=== PATIENT | male | born 1960 | race Caucasian/White ===

== ENCOUNTER 2019-02-23 04:10 | Inpatient (IN) | payer SELFPAY ==
[~2019-02-23] VITALS: Ht 172.7 cm; Wt 178.8 kg
[~2019-02-23 04:10] MED LIST: AMOX1TAB61 PO; APIX5TAB PO; ASPI325T8 PO; FURO40TA4 PO; INSU100V8 SQ; METO25TA4 PO; POTA20TA4 PO
[2019-02-23] MEDS ORDERED: VANCOMYCIN PER PHARMACY MC PRN (04:30)
[2019-02-23 04:55] LABS: BASO # 0.1 x10^3/uL (0.0-0.2); BASO % 1 % (0-3); EOS # 0.3 x10^3/uL (0.0-0.7); EOS % 3 % (0-3); HEMATOCRIT 37.7 % (39.0-53.0); HEMOGLOBIN 12.2 g/dL (13.0-17.5); LYMPH # 1.6 x10^3/uL (1.0-4.8); LYMPH % 18 % (24-48); MEAN CORPUSCULAR HEMOGLOBIN 26 pg (25-35); MEAN CORPUSCULAR HGB CONC 32 g/dL (31-37); MEAN CORPUSCULAR VOLUME 79 fL (79-100); MONO # 0.5 x10^3/uL (0.0-1.1); MONO % 5 % (0-9); NEUT # 6.4 x10^3/uL (1.8-7.7); NEUT % 73 % (31-73); PLATELET COUNT 290 x10^3/uL (140-400); RED BLOOD COUNT 4.78 x10^6/uL (4.30-5.70); RED CELL DISTRIBUTION WIDTH 17.2 % (11.5-14.5); WHITE BLOOD COUNT 8.8 x10^3/uL (4.0-11.0)
[2019-02-23] MEDS ORDERED: VANCOMYCIN 2 GM in IV NORMAL SALINE 500ML BAG 500 ML IV ONE (05:00)
[2019-02-23 05:03] LABS: CREATININE 1.1 mg/dL (0.7-1.3)
[2019-02-23 05:10] LABS: ALBUMIN/GLOBULIN RATIO 0.7 (1.0-1.7); TOTAL BILIRUBIN 0.4 mg/dL (0.2-1.0); TOTAL PROTEIN 7.5 g/dL (6.4-8.2)
--- NOTE | 2019-02-23 05:50 | PHYS DOC ---
Past Medical History Past Medical History: A-Fib, CHF, Diabetes-Type II, Hypertension Past Surgical History: Other Additional Past Surgical Histo: HERNIA, R ARM TENDON REPAIR Alcohol Use: None Drug Use: None Adult General Chief Complaint Chief Complaint: LOWER EXT PAIN HPI HPI Patient is a 59-year-old male who presents with complaint of left lower leg swelling, redness and drainage. Patient states that he had been admitted for same complaint back in December and was discharged home with antibiotics. Patient states that he completed antibiotics but he is still having purulent drainage. He denies any fever. He rates pain at a 2 out of 10. He states the pain is worsened with weightbearing. He denies any chest pain or shortness breath. He does admit some mild shortness of breath when he walks long distances but states that that is nothing new.[] Review of Systems Review of Systems Constitutional: Denies fever or chills [] Respiratory: Denies cough or shortness of breath [] Cardiovascular: No additional information not addressed in HPI [] GI: Denies abdominal pain, nausea, vomiting or diarrhea [] Musculoskeletal: Positive left lower leg swelling and pain [] Integument: Left lower leg demonstrates swelling, redness and drainage[] Neurologic: Denies headache, focal weakness or sensory changes [] All other systems were reviewed and found to be within normal limits, except as documented in this note. Current Medications Current Medications Current Medications Medications (Trade) Dose Ordered Sig/Masood Start Time Stop Time Status Last Admin Dose Admin Vancomycin HCl (Vanco Per Pharmacy) 1 each PRN DAILY PRN 02/23/19 04:30 Vancomycin HCl 2 gm/Sodium Chloride 500 ml @ 250 mls/hr 1X ONCE 02/23/19 05:00 02/23/19 06:59 02/23/19 04:48 250 MLS/HR Allergies Allergies Allergies Coded Allergies Type Severity Reaction Last Updated Verified No Known Drug Allergies 01/08/19 No Physical Exam Physical Exam Constitutional: Well developed, well nourished, no acute distress, non-toxic appearance. [] HENT: Normocephalic, atraumatic, bilateral external ears normal, oropharynx moist, no oral exudates, nose normal. [] Eyes: PERRLA, EOMI, conjunctiva normal, no discharge. [] Neck: Normal range of motion, no tenderness, supple, no stridor. [] Cardiovascular: Regular rate and rhythm[] Lungs & Thorax: Bilateral breath sounds clear to auscultation [] Abdomen: Bowel sounds normal, soft, no tenderness. [] Skin: Warm, dry, with redness, warmth and tenderness. [] Extremities: No cyanosis, no clubbing, ROM intact, with lower extremity pitting edema. [] Neurologic: Alert and oriented X 3, no focal deficits noted. [] Current Patient Data Vital Signs Vital Signs Date Time Temp Pulse Resp B/P (MAP) Pulse Ox O2 Delivery O2 Flow Rate FiO2 02/23/19 04:10 98.5 80 22 132/71 (91) 96 Room Air 98.5 Lab Values Laboratory Tests Test 02/23/19 04:40 White Blood Count 8.8 x10^3/uL (4.0-11.0) Red Blood Count 4.78 x10^6/uL (4.30-5.70) Hemoglobin 12.2 g/dL (13.0-17.5) L Hematocrit 37.7 % (39.0-53.0) L Mean Corpuscular Volume 79 fL (79-100) Mean Corpuscular Hemoglobin 26 pg (25-35) Mean Corpuscular Hemoglobin Concent 32 g/dL (31-37) Red Cell Distribution Width 17.2 % (11.5-14.5) H Platelet Count 290 x10^3/uL (140-400) Neutrophils (%) (Auto) 73 % (31-73) Lymphocytes (%) (Auto) 18 % (24-48) L Monocytes (%) (Auto) 5 % (0-9) Eosinophils (%) (Auto) 3 % (0-3) Basophils (%) (Auto) 1 % (0-3) Neutrophils # (Auto) 6.4 x10^3/uL (1.8-7.7) Lymphocytes # (Auto) 1.6 x10^3/uL (1.0-4.8) Monocytes # (Auto) 0.5 x10^3/uL (0.0-1.1) Eosinophils # (Auto) 0.3 x10^3/uL (0.0-0.7) Basophils # (Auto) 0.1 x10^3/uL (0.0-0.2) Sodium Level 142 mmol/L (136-145) Potassium Level 4.0 mmol/L (3.5-5.1) Chloride Level 104 mmol/L (98-107) Carbon Dioxide Level 33 mmol/L (21-32) H Anion Gap 5 (6-14) L Blood Urea Nitrogen 14 mg/dL (8-26) Creatinine 1.1 mg/dL (0.7-1.3) Estimated GFR (Cockcroft-Gault) 69.0 BUN/Creatinine Ratio 13 (6-20) Glucose Level 162 mg/dL (70-99) H Calcium Level 9.0 mg/dL (8.5-10.1) Total Bilirubin 0.4 mg/dL (0.2-1.0) Aspartate Amino Transferase (AST) 13 U/L (15-37) L Alanine Aminotransferase (ALT) 15 U/L (16-63) L Alkaline Phosphatase 87 U/L (46-116) NY-Hfg-M-Type Natriuretic Peptide 575 pg/mL (0-124) H Total Protein 7.5 g/dL (6.4-8.2) Albumin 3.0 g/dL (3.4-5.0) L Albumin/Globulin Ratio 0.7 (1.0-1.7) L Laboratory Tests 02/23/19 04:40 Laboratory Tests 02/23/19 04:40 EKG EKG [] Radiology/Procedures Radiology/Procedures [] Course & Med Decision Making Course & Med Decision Making Pertinent Labs and Imaging studies reviewed. (See chart for details) [] Dragon Disclaimer Dragon Disclaimer This electronic medical record was generated, in whole or in part, using a voice recognition dictation system. Departure Departure Impression: Primary Impression: Left leg cellulitis Disposition: ADMITTED INPATIENT Admitting Physician: LIANA Condition: GOOD Referrals: NO PCP (PCP) VALERIO PORTER Jr. DO Feb 23, 2019 05:50
[2019-02-23] MEDS ORDERED: ACETAMINOPHEN 325 MG TABLET. PO PRN (06:00)
--- NOTE | 2019-02-23 06:35 | NUR ---
PATIENT BROUGHT TO ROOM 578, PER W/C, PER ed NURSE, REPORT TO BE GIVEN TO CANDIDA GARCIA.
--- NOTE | 2019-02-23 06:37 | NUR ---
Pharmacy Vancomycin Dosing Note S:Consulted to monitor and dose vancomycin started 02/23/19. O:DARRICK STOVER is a 59 year old M with Cellulitis . Height: 5 feet, 8 inches Weight: 175.178243 kg [place] Body Weight: 68.40 Adjusted Body Weight: 111.40 Dosing Weight: Actual Other Antibiotics: LABS: Last BUN: 14 Last Creatinine: 1.1 Creatinine Clearance: >100, INFLATED BY OBESITY mL/min Last WBC: 8.8 Last Procalcitonin: Tmax (past 24 hours): Microbiology: I/O: Drug Levels: Last level: on at Last dose given 02/23/19 at 0500 Vancomycin Dosing: Loading Dose: 2000 mg x1 Dosing Weight: Actual Target Trough: 10-20 A: Based on: WT AND CRCL P: 1. Begin Vancomycin 2000 mg IV q12h 2. Follow up Trough level on 02/24/19 at 1630 3. Pharmacy will continue to monitor, follow and adjust therapy as needed. FRANNIE MOSER RPH, 02/23/19 0637 Signed: 02/23/19 at 0638 by FRANNIE MOSER RPH PHA
[2019-02-23 07:00] VITALS: BP 125/49
[2019-02-23] MEDS ORDERED: FLU VAX QS 2019-20 (36MOS+)/PF 0.5 ML SYRINGE. VAX IM ONE (09:30)
--- NOTE | 2019-02-23 10:44 | PDOC1 ---
History and Physical Date of Admission Date of Admission DATE: 02/23/19 TIME: 10:42 Identification/Chief Complaint Chief Complaint seen in er , 59-year-old male who presents with complaint of left lower leg swelling, redness and drainage. Patient states that he had been admitted for same complaint back in December and was discharged home with antibiotics. he completed antibiotics but he is still having purulent drainage. He denies any fever. still working part-time, cannot afford insulin or eliquis Past Medical History Past Medical History Past Medical History Past Medical History Past Medical History: A-Fib, CHF, Diabetes-Type II, Hypertension Past Surgical History: Other Additional Past Surgical Histo: HERNIA, R ARM TENDON REPAIR Alcohol Use: None Drug Use: None GNR wound left leg, klebsiella, e coli etc on wound cx LLE swelling -severe lymphedema sepsis with no organ dysfcn Morbid obesity Afib with RVR - s/p TL and electrical CARDIOVERSION () sustained vtach (40 beats), asymptomatic, stable post electrical cardioversion HTN fhx obesity Cardiovascular: CHF, HTN Pulmonary: No pertinent hx GI: No pertinent hx Heme/Onc: Anemia NOS Hepatobiliary: No pertinent hx Psych: No pertinent hx Rheumatologic: No pertinent hx Infectious disease: No pertinent hx Renal/: Chronic renal insuff Endocrine: No pertinent hx Past Surgical History Past Surgical History: Hernia Repair Family History Family History: Coronary Artery Disease, Hypertension Social History Smoke: No ALCOHOL: rare Drugs: None Current Medications Current Medications Current Medications Vancomycin HCl (Vanco Per Pharmacy) 1 each PRN DAILY PRN MC SEE COMMENTS Last administered on 02/23/19at 06:35; Start 02/23/19 at 04:30 Vancomycin HCl 2 gm/Sodium Chloride 500 ml @ 250 mls/hr 1X ONCE IV Last administered on 02/23/19at 04:48; Start 02/23/19 at 05:00; Stop 02/23/19 at 06:59; Status DC Acetaminophen (Tylenol) 650 mg PRN Q4HRS PRN PO FEVER; Start 02/23/19 at 06:00; Stop 02/24/19 at 05:59 Vancomycin HCl 2 gm/Sodium Chloride 500 ml @ 250 mls/hr Q12H IV ; Start 02/23/19 at 17:00 Vancomycin HCl (Vancomycin Trough Level) 1 each 1X ONCE MC ; Start 02/24/19 at 16:30; Stop 02/24/19 at 16:31 Influenza Virus Vaccine Quadrival (Afluria Quad 2019-20 (3yr Up) Syringe) 0.5 ml ONCE ONCE VAX IM ; Start 02/23/19 at 09:30; Stop 02/23/19 at 09:57; Status DC Active Scripts Active Lantus (Insulin Glargine,Hum.rec.anlog) 100 Unit/1 Ml Vial 8 Unit SQ QHS 30 Days Klor-Con M20 (Potassium Chloride) 20 Meq Tab.er.prt 20 Meq PO DAILYWBKFT Furosemide 40 Mg Tablet 40 Mg PO DAILY Metoprolol Tartrate 25 Mg Tablet 25 Mg PO BID Eliquis (Apixaban) 5 Mg Tablet 5 Mg PO BID Eliquis (Apixaban) 5 Mg Tablet 10 Mg PO BID 30 Days Reported Aspirin 325 Mg Tablet 1 Tab PO DAILY Augmentin 875-125 Tablet (Amoxicillin/Potassium Clav) 1 Each Tablet 1 Tab PO BID 8 Days Allergies Allergies: Coded Allergies: No Known Drug Allergies (Unverified , 01/08/19) ROS Review of System Review of Systems Review of Systems Constitutional: Denies fever or chills [] Respiratory: Denies cough or shortness of breath [] Cardiovascular: No additional information not addressed in HPI [] GI: Denies abdominal pain, nausea, vomiting or diarrhea [] Musculoskeletal: Positive left lower leg swelling and pain [] Integument: Left lower leg demonstrates swelling, redness and drainage[] despite recent antibiotica Neurologic: Denies headache, focal weakness or sensory changes [] 14 PT systems were reviewed and found to be within normal limits, except as documented Musculoskeletal: Yes Gait Disturbance, Yes Joint Stiffness Skin: Yes Dry Skin, Yes Rash, Yes Skin Lesion Changes Physical Exam Physical Exam Physical Exam Physical Exam Constitutional: Well developed, well nourished, no acute distress, non-toxic appearance. [] HENT: Normocephalic, atraumatic, bilateral external ears normal, oropharynx moist, no oral exudates, nose normal. [] Eyes: PERRLA, EOMI, conjunctiva normal, no discharge. [] Neck: Normal range of motion, no tenderness, supple, no stridor. [] Cardiovascular: Regular rate and rhythm[] Lungs & Thorax: Bilateral breath sounds clear to auscultation [] Abdomen: Bowel sounds normal, soft, no tenderness. [] Skin: Warm, dry, with redness, warmth and tenderness. [] Extremities: No cyanosis, no clubbing, ROM intact, with lower extremity pitting edema. [] Neurologic: Alert and oriented X 3, no focal deficits noted. [] General: Alert, Oriented X3, No acute distress HEENT: EOMI, Mucous membr. moist/pink Heart: irregularly irregular Breasts: Not examined Abdomen: Normal bowel sounds, Soft Rectal Exam: not examined Extremities: No cyanosis, Other (marked inflammatory changes with wheeping left ankle, lower leg) Neuro: Normal speech, Cranial nerves 3-12 NL Psych/Mental Status: Mental status NL, Mood NL Vitals Vitals Vital Signs Date Time Temp Pulse Resp B/P (MAP) Pulse Ox O2 Delivery O2 Flow Rate FiO2 02/23/19 07:00 97.6 60 18 125/49 (74) 93 Room Air 97.6 Labs Labs Laboratory Tests Test 02/23/19 04:40 02/23/19 07:32 White Blood Count 8.8 x10^3/uL (4.0-11.0) Red Blood Count 4.78 x10^6/uL (4.30-5.70) Hemoglobin 12.2 g/dL (13.0-17.5) Hematocrit 37.7 % (39.0-53.0) Mean Corpuscular Volume 79 fL (79-100) Mean Corpuscular Hemoglobin 26 pg (25-35) Mean Corpuscular Hemoglobin Concent 32 g/dL (31-37) Red Cell Distribution Width 17.2 % (11.5-14.5) Platelet Count 290 x10^3/uL (140-400) Neutrophils (%) (Auto) 73 % (31-73) Lymphocytes (%) (Auto) 18 % (24-48) Monocytes (%) (Auto) 5 % (0-9) Eosinophils (%) (Auto) 3 % (0-3) Basophils (%) (Auto) 1 % (0-3) Neutrophils # (Auto) 6.4 x10^3/uL (1.8-7.7) Lymphocytes # (Auto) 1.6 x10^3/uL (1.0-4.8) Monocytes # (Auto) 0.5 x10^3/uL (0.0-1.1) Eosinophils # (Auto) 0.3 x10^3/uL (0.0-0.7) Basophils # (Auto) 0.1 x10^3/uL (0.0-0.2) Sodium Level 142 mmol/L (136-145) Potassium Level 4.0 mmol/L (3.5-5.1) Chloride Level 104 mmol/L (98-107) Carbon Dioxide Level 33 mmol/L (21-32) Anion Gap 5 (6-14) Blood Urea Nitrogen 14 mg/dL (8-26) Creatinine 1.1 mg/dL (0.7-1.3) Estimated GFR (Cockcroft-Gault) 69.0 BUN/Creatinine Ratio 13 (6-20) Glucose Level 162 mg/dL (70-99) Calcium Level 9.0 mg/dL (8.5-10.1) Total Bilirubin 0.4 mg/dL (0.2-1.0) Aspartate Amino Transf (AST/SGOT) 13 U/L (15-37) Alanine Aminotransferase (ALT/SGPT) 15 U/L (16-63) Alkaline Phosphatase 87 U/L (46-116) WO-Igh-F-Type Natriuretic Peptide 575 pg/mL (0-124) Total Protein 7.5 g/dL (6.4-8.2) Albumin 3.0 g/dL (3.4-5.0) Albumin/Globulin Ratio 0.7 (1.0-1.7) Glucose (Fingerstick) 121 mg/dL (70-99) Laboratory Tests Test 02/23/19 04:40 02/23/19 07:32 White Blood Count 8.8 x10^3/uL (4.0-11.0) Red Blood Count 4.78 x10^6/uL (4.30-5.70) Hemoglobin 12.2 g/dL (13.0-17.5) Hematocrit 37.7 % (39.0-53.0) Mean Corpuscular Volume 79 fL (79-100) Mean Corpuscular Hemoglobin 26 pg (25-35) Mean Corpuscular Hemoglobin Concent 32 g/dL (31-37) Red Cell Distribution Width 17.2 % (11.5-14.5) Platelet Count 290 x10^3/uL (140-400) Neutrophils (%) (Auto) 73 % (31-73) Lymphocytes (%) (Auto) 18 % (24-48) Monocytes (%) (Auto) 5 % (0-9) Eosinophils (%) (Auto) 3 % (0-3) Basophils (%) (Auto) 1 % (0-3) Neutrophils # (Auto) 6.4 x10^3/uL (1.8-7.7) Lymphocytes # (Auto) 1.6 x10^3/uL (1.0-4.8) Monocytes # (Auto) 0.5 x10^3/uL (0.0-1.1) Eosinophils # (Auto) 0.3 x10^3/uL (0.0-0.7) Basophils # (Auto) 0.1 x10^3/uL (0.0-0.2) Sodium Level 142 mmol/L (136-145) Potassium Level 4.0 mmol/L (3.5-5.1) Chloride Level 104 mmol/L (98-107) Carbon Dioxide Level 33 mmol/L (21-32) Anion Gap 5 (6-14) Blood Urea Nitrogen 14 mg/dL (8-26) Creatinine 1.1 mg/dL (0.7-1.3) Estimated GFR (Cockcroft-Gault) 69.0 BUN/Creatinine Ratio 13 (6-20) Glucose Level 162 mg/dL (70-99) Calcium Level 9.0 mg/dL (8.5-10.1) Total Bilirubin 0.4 mg/dL (0.2-1.0) Aspartate Amino Transf (AST/SGOT) 13 U/L (15-37) Alanine Aminotransferase (ALT/SGPT) 15 U/L (16-63) Alkaline Phosphatase 87 U/L (46-116) WR-Ela-U-Type Natriuretic Peptide 575 pg/mL (0-124) Total Protein 7.5 g/dL (6.4-8.2) Albumin 3.0 g/dL (3.4-5.0) Albumin/Globulin Ratio 0.7 (1.0-1.7) Glucose (Fingerstick) 121 mg/dL (70-99) VTE Prophylaxis Ordered VTE Prophylaxis Devices: Contraindicated VTE Pharmacological Prophylaxi: Yes Assessment/Plan Assessment/Plan IMPRESSION LLE swelling -severe lymphedema// cellulitis Afib with RVR - s/p TL and electrical CARDIOVERSION (8.) hx sustained vtach (40 beats), asymptomatic, stable post electrical car dioversion HTN morbid obesity DIABETES, UNCONTROLLED plan Elevation/Compression consult ID CANNOT AFFORD ELIQUIS, ? WARFARIN RX Consult cardiology local wound care accuchecks 54 min pt exam, chart reviewed > 50% of time spent with exam, chart review, pt care coordination LISA COLEY MD Feb 23, 2019 10:44
[2019-02-23 11:00] VITALS: BP 130/85
--- NOTE | 2019-02-23 11:32 | PDOC ---
Infectious Disease Note Vital Sign Vital Signs Vital Signs Date Time Temp Pulse Resp B/P (MAP) Pulse Ox O2 Delivery O2 Flow Rate FiO2 02/23/19 07:00 97.6 60 18 125/49 (74) 93 Room Air 97.6 Labs Lab Laboratory Tests Test 02/23/19 04:40 02/23/19 07:32 White Blood Count 8.8 x10^3/uL (4.0-11.0) Red Blood Count 4.78 x10^6/uL (4.30-5.70) Hemoglobin 12.2 g/dL (13.0-17.5) Hematocrit 37.7 % (39.0-53.0) Mean Corpuscular Volume 79 fL (79-100) Mean Corpuscular Hemoglobin 26 pg (25-35) Mean Corpuscular Hemoglobin Concent 32 g/dL (31-37) Red Cell Distribution Width 17.2 % (11.5-14.5) Platelet Count 290 x10^3/uL (140-400) Neutrophils (%) (Auto) 73 % (31-73) Lymphocytes (%) (Auto) 18 % (24-48) Monocytes (%) (Auto) 5 % (0-9) Eosinophils (%) (Auto) 3 % (0-3) Basophils (%) (Auto) 1 % (0-3) Neutrophils # (Auto) 6.4 x10^3/uL (1.8-7.7) Lymphocytes # (Auto) 1.6 x10^3/uL (1.0-4.8) Monocytes # (Auto) 0.5 x10^3/uL (0.0-1.1) Eosinophils # (Auto) 0.3 x10^3/uL (0.0-0.7) Basophils # (Auto) 0.1 x10^3/uL (0.0-0.2) Sodium Level 142 mmol/L (136-145) Potassium Level 4.0 mmol/L (3.5-5.1) Chloride Level 104 mmol/L (98-107) Carbon Dioxide Level 33 mmol/L (21-32) Anion Gap 5 (6-14) Blood Urea Nitrogen 14 mg/dL (8-26) Creatinine 1.1 mg/dL (0.7-1.3) Estimated GFR (Cockcroft-Gault) 69.0 BUN/Creatinine Ratio 13 (6-20) Glucose Level 162 mg/dL (70-99) Calcium Level 9.0 mg/dL (8.5-10.1) Total Bilirubin 0.4 mg/dL (0.2-1.0) Aspartate Amino Transf (AST/SGOT) 13 U/L (15-37) Alanine Aminotransferase (ALT/SGPT) 15 U/L (16-63) Alkaline Phosphatase 87 U/L (46-116) MH-Ebz-B-Type Natriuretic Peptide 575 pg/mL (0-124) Total Protein 7.5 g/dL (6.4-8.2) Albumin 3.0 g/dL (3.4-5.0) Albumin/Globulin Ratio 0.7 (1.0-1.7) Glucose (Fingerstick) 121 mg/dL (70-99) Objective Assessment LLE cellultis Tinea Lymphedema H/o Afib RVR s/p cardioversion 01/10 DM Morbid obesity CKD Plan Plan of Care Dapto times one Po Zyvox/Micafungin/Zosyn F/u labs and cults Elevation Will need compression eventually Thank you # [id number] LOUANN BASHIR MD Feb 23, 2019 11:32
[2019-02-23] MEDS ORDERED: APIXABAN 5 MG TABLET. PO SCH (12:00)
--- NOTE | 2019-02-23 12:05 | CONS ---
DATE OF CONSULTATION: 02/23/2019 LOCATION: The patient is in room 578. REQUESTING PHYSICIAN: Dr. Mendoza REASON FOR CONSULTATION: Cellulitis and lymphedema. HISTORY OF PRESENT ILLNESS: The patient is a 59-year-old gentleman, recently admitted with atrial fibrillation and lower extremity cellulitis back in December, underwent cardioversion and was treated and was discharged home with oral antibiotics; however, he states he had difficulty paying for all his medications. He states he did complete some of the antibiotics and was doing fairly well. He did go home with Augmentin. He states about 2 weeks ago his left leg began to become more swollen and painful. He did not have any fevers, chills, or sweats, but had increased redness and drainage and presented back to [facility]. He has a normal white blood cell count and has been afebrile. He has no headaches and no sore throat, cough, or chest pain. No nausea, vomiting, or diarrhea. No dysuria, frequency, or urgency. He states his appetite is good. Discussed monitoring his left leg. PAST MEDICAL HISTORY: Positive for hypertension, diabetes, atrial fibrillation, morbid obesity, lower extremity lymphedema, as well as the cellulitis. Cultures were positive for E. coli, group B Strep, Klebsiella oxytoca, and Leclercia adecarboxylata. PAST SURGICAL HISTORY: Positive for scalp laceration, right elbow laceration and repair, hernia repair with mesh, and cardioversion. REVIEW OF SYSTEMS: Otherwise negative. ALLERGIES: No known drug allergies. SOCIAL HISTORY: No tobacco or alcohol. Again, . FAMILY HISTORY: Father had a myocardial infarction. Mother from uncertain cause. CURRENT MEDICATIONS: Included vancomycin, Eliquis, aspirin, Lasix, and insulin. PHYSICAL EXAMINATION: VITAL SIGNS: He is afebrile. Temperature 97.6, pulse 60, respirations 18, blood pressure 125/49, and satting 93% on room air. CONSTITUTIONAL: He is a pleasant gentleman. He is cooperative. He is in no acute distress. He is sitting in a chair. HEENT: Pupils are equal and reactive. Oral cavity, pharynx has some questionable dentition. NECK: Supple. No JVD. LUNGS: Decreased in the bases. HEART: S1, S2. ABDOMEN: Morbidly obese and soft. No guarding or rebound. EXTREMITIES: He has chronic lymphedema bilaterally. His left lower extremity has a wound on the anterior aspect of the ulceration. There is no gross odor. There is mild erythema surrounding it. There is no pus. He does have tinea bilaterally on lower extremities. NEUROLOGIC: He is nonfocal. PSYCHIATRIC: Affect is pleasant. LABORATORY DATA: White count 8.8, hemoglobin 12.2, platelets of 290, neutrophils 73, and lymphs are 18. Creatinine 1.1. Glucose 162. Normal liver function study tests. BNP was 575. IMPRESSION: 1. Left lower extremity cellulitis. 2. Tinea. 3. Lymphedema. 4. History of atrial fibrillation with rapid ventricular response, status post cardioversion on 01/10/2019. 5. Diabetes. 6. Morbid obesity. 7. Chronic kidney disease. RECOMMENDATIONS: Discontinue the vancomycin. We will dose daptomycin x 1. Begin p.o. Zyvox. Add IV micafungin as well as Zosyn. We will follow up labs, cultures. He will need elevation and eventually will need compression. Dr. Mendoaz, thank you for allowing me to participate in the patient's care. Should you have any concerns or questions, please do not hesitate to contact me. LOUANN BASHIR MD DR: AMERICA/nicole JOB#: [id number] / [id number]
--- NOTE | 2019-02-23 12:28 | PDOC2 ---
CARDIAC CONSULT DATE OF CONSULT Date of Consult DATE: 02/23/19 TIME: 12:20 REASON FOR CONSULT Reason for Consult: AFIB, cannot afford Eliquis REFERRING PHYSICIAN Referring Physician: Dr. Mendoza SOURCE Source: Chart review, Patient HISTORY OF PRESENT ILLNESS HISTORY OF PRESENT ILLNESS This is a 59 yo male, with a history of AFIB, CHF, and HTN, who presented secondary to left lower leg swelling, redness and drainage. Due to lack on insurance and financial constraints, patient not able to afford routine monitoring of warfarin. Poor candidate for Eliquis due to BMI of 60. Was previously on Eliquis following CV as samples were provided. Once samples completed, was to start ASA for stroke prevention. Patient denies any chest pain, palpitations, dizziness, diaphoresis, or nausea/vomiting. PAST MEDICAL HISTORY Past Medical History Cardiovascular: CHF, HTN, AFIB Heme/Onc: Anemia NOS Renal/: Chronic renal insuff PAST SURGICAL HISTORY Past Surgical History General: Alert, Oriented X3, Cooperative, No acute distress HEENT: Atraumatic Lungs: Other (diminished bases ) Heart: Other (IRRR; AFIB with rate 115-130) Abdomen: Soft, Other (obese ) Extremities: Other (3+ bilateral LE edema. LLE erythema ) Skin: No breakdown, No significant lesion Neuro: Normal speech, Sensation intact Psych/Mental Status: Mental status NL, Mood NL MUSCULOSKELETAL: Osteoarthritic changes both hands FAMILY HISTORY Family History: Hypertension SOCIAL HISTORY Smoke: No ALCOHOL: none Drugs: None Lives: Alone CURRENT MEDICATIONS CURRENT MEDICATIONS Current Medications Medications (Trade) Dose Ordered Sig/Masood Route PRN Reason Start Time Stop Time Status Last Admin Dose Admin Vancomycin HCl (Vanco Per Pharmacy) 1 each PRN DAILY PRN MC SEE COMMENTS 02/23/19 04:30 02/23/19 11:28 DC 02/23/19 06:35 Vancomycin HCl 2 gm/Sodium Chloride 500 ml @ 250 mls/hr 1X ONCE IV 02/23/19 05:00 02/23/19 06:59 DC 02/23/19 04:48 Influenza Virus Vaccine Quadrival (Afluria Quad 2019-20 (3yr Up) Syringe) 0.5 ml ONCE ONCE VAX IM 02/23/19 09:30 02/23/19 09:57 DC 02/23/19 11:44 ALLERGIES ALLERGIES: Coded Allergies: No Known Drug Allergies (Unverified , 01/08/19) ROS Review of System 14 point ROS conducted with pertinent positives noted above in HPI. PHYSICAL EXAM General: Alert, Oriented X3, Cooperative, No acute distress HEENT: Atraumatic, Mucous membr. moist/pink Lungs: Other (diminished bases) Heart: Other (IRRR- not on tele ) Abdomen: Soft, No tenderness Extremities: Other (trace bilateral LE edema. LLE erythema and wound with intact dressing ) Neuro: Normal speech, Strength at 5/5 X4 ext, Sensation intact Psych/Mental Status: Mental status NL, Mood NL MUSCULOSKELETAL: Osteoarthritic changes both hands VITALS/I&O VITALS/I&O: Vital Signs Date Time Temp Pulse Resp B/P (MAP) Pulse Ox O2 Delivery O2 Flow Rate FiO2 02/23/19 11:00 97.9 99 18 130/85 (100) 95 Room Air 97.9 LABS Lab: Laboratory Tests Test 02/23/19 04:40 02/23/19 07:32 02/23/19 11:43 White Blood Count 8.8 x10^3/uL (4.0-11.0) Red Blood Count 4.78 x10^6/uL (4.30-5.70) Hemoglobin 12.2 g/dL (13.0-17.5) L Hematocrit 37.7 % (39.0-53.0) L Mean Corpuscular Volume 79 fL (79-100) Mean Corpuscular Hemoglobin 26 pg (25-35) Mean Corpuscular Hemoglobin Concent 32 g/dL (31-37) Red Cell Distribution Width 17.2 % (11.5-14.5) H Platelet Count 290 x10^3/uL (140-400) Neutrophils (%) (Auto) 73 % (31-73) Lymphocytes (%) (Auto) 18 % (24-48) L Monocytes (%) (Auto) 5 % (0-9) Eosinophils (%) (Auto) 3 % (0-3) Basophils (%) (Auto) 1 % (0-3) Neutrophils # (Auto) 6.4 x10^3/uL (1.8-7.7) Lymphocytes # (Auto) 1.6 x10^3/uL (1.0-4.8) Monocytes # (Auto) 0.5 x10^3/uL (0.0-1.1) Eosinophils # (Auto) 0.3 x10^3/uL (0.0-0.7) Basophils # (Auto) 0.1 x10^3/uL (0.0-0.2) Sodium Level 142 mmol/L (136-145) Potassium Level 4.0 mmol/L (3.5-5.1) Chloride Level 104 mmol/L (98-107) Carbon Dioxide Level 33 mmol/L (21-32) H Anion Gap 5 (6-14) L Blood Urea Nitrogen 14 mg/dL (8-26) Creatinine 1.1 mg/dL (0.7-1.3) Estimated GFR (Cockcroft-Gault) 69.0 BUN/Creatinine Ratio 13 (6-20) Glucose Level 162 mg/dL (70-99) H Calcium Level 9.0 mg/dL (8.5-10.1) Total Bilirubin 0.4 mg/dL (0.2-1.0) Aspartate Amino Transferase (AST) 13 U/L (15-37) L Alanine Aminotransferase (ALT) 15 U/L (16-63) L Alkaline Phosphatase 87 U/L (46-116) OH-Xfx-T-Type Natriuretic Peptide 575 pg/mL (0-124) H Total Protein 7.5 g/dL (6.4-8.2) Albumin 3.0 g/dL (3.4-5.0) L Albumin/Globulin Ratio 0.7 (1.0-1.7) L Glucose (Fingerstick) 121 mg/dL (70-99) H 141 mg/dL (70-99) H Laboratory Tests 02/23/19 04:40 Laboratory Tests 02/23/19 04:40 ASSESSMENT/PLAN ASSESSMENT/PLAN 1. Left lower extremity cellulitis; as per PCP, ID 2. AFIB s/p TL/CVN; heart tones irregular. Not on tele. Rate controlled per vital sign recordings. Was previously on Eliquis, short-term therapy following cardioversion. 3. Hypertension; controlled 4. Chronic diastolic CHF; appears clinically compensated 5. CKD; Cr stable. 6. Morbid obesity Recommendations [id number] score 2 correlating with a 2.2% risk for stroke per year. Poor candidate for NOAC given BMI of 59. Not able to afford routine monitoring for warfarin due to lack of insurance and financial means. 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 Needs to establish care with PCP. PACO MATIAS APRN Feb 23, 2019 12:27
[2019-02-23] MEDS ORDERED: NORMAL SALINE IV ONE (12:30)
[2019-02-23] MEDS ORDERED: DAPTOMYCIN IV ONE (12:30)
[2019-02-23] MEDS ORDERED: DAPTOmycin (GENERIC) IVPB 670 MG in IV NORMAL SALINE 50ML 50 ML IV ONE (12:34)
[2019-02-23] MEDS: POTASSIUM CHLORIDE 20 MEQ TABLET.ER. PO SCH (13:00)
[2019-02-23] MEDS: LINEZOLID 600 MG TABLET PO SCH ×2 (13:00→21:17)
[2019-02-23] MEDS: ASPIRIN 325 MG TABLET PO SCH (13:00)
[2019-02-23] MEDS: METOPROLOL TART IMMED RELEASE 25 MG TABLET. PO SCH ×2 (13:01→21:17)
[2019-02-23] MEDS: FUROSEMIDE 40 MG TABLET. PO SCH (13:01)
[2019-02-23] MEDS: PIPERACILLIN/TAZOBACTAM 3.375 GM in IV NORMAL SALINE 50ML 50 ML IV SCH ×3 (13:16→23:30)
[2019-02-23] MEDS: MICAFUNGIN 100 MG in IV DEXTROSE 5% 100ML 100 ML IV SCH (13:18)
[2019-02-23 15:00] VITALS: BP 122/55
[2019-02-23] MEDS ORDERED: VANCOMYCIN 2 GM in IV NORMAL SALINE 500ML BAG 500 ML IV SCH (17:00)
[2019-02-23 19:00] VITALS: BP 108/69
--- NOTE | 2019-02-23 20:24 | EKG ---
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 : 1960 Requested By: PACO MATIAS Order Number: [id number] Reading MD: Measurements Intervals [place] Rate: 100 P: 14 AK: 152 QRS: -7 QRSD: 148 T: 16 QT: 356 QTc: 462 Interpretive Statements SINUS RHYTHM VENTRICULAR PREMATURE COMPLEX(ES) ATRIAL PREMATURE COMPLEX(ES) LEFTWARD AXIS NON SPECIFIC INTRAVENTRICULAR BLOCK QRS(T) CONTOUR ABNORMALITY CONSISTENT WITH ANTEROSEPTAL INFARCT AGE UNDETERMINED ABNORMAL ECG RI6.02 Compared to ECG 01/10/2019 11:17:27 Myocardial infarct finding now present Right bundle-branch block no longer present Right ventricular hypertrophy no longer present Early repolarization no longer present
[2019-02-23] MEDS: LACTOBACILLUS RHAMNOSUS GG 1 CAPSULE. PO SCH (21:16)
[2019-02-23] MEDS: INSULIN GLARGINE SYRINGE. SQ SCH (21:21)
[2019-02-23 23:00] VITALS: BP 113/88
[2019-02-23] MEDS: ZOLPIDEM 5 MG TABLET. PO PRN (23:30)
[2019-02-24] VITALS (7 sets, daily range): BP systolic 96–116; BP diastolic 60–88
[2019-02-24] MEDS: PIPERACILLIN/TAZOBACTAM 3.375 GM in IV NORMAL SALINE 50ML 50 ML IV SCH ×3 (05:16→18:00)
[2019-02-24] MEDS: METOPROLOL TART IMMED RELEASE 25 MG TABLET. PO SCH ×2 (08:09→20:56)
[2019-02-24] MEDS: ASPIRIN 325 MG TABLET PO SCH (08:09)
[2019-02-24] MEDS: LACTOBACILLUS RHAMNOSUS GG 1 CAPSULE. PO SCH ×2 (08:09→20:56)
--- NOTE | 2019-02-24 08:09 | PDOC ---
PROGRESS NOTES History of Present Illness History of Present Illness VTE Prophylaxis Ordered VTE Prophylaxis Devices: Contraindicated VTE Pharmacological Prophylaxi: Yes Assessment/Plan Assessment/Plan IMPRESSION LLE swelling -severe lymphedema// cellulitis Afib with RVR - s/p TL and electrical CARDIOVERSION (8./) hx sustained vtach (40 beats), asymptomatic, stable post electrical c ardioversion HTN morbid obesity DIABETES, UNCONTROLLED [id number] score 2 correlating with a 2.2% risk for stroke per year. asa for stroke prevention, cannot afford coumadin monitoring plan Elevation/Compression iv antibiotics consult ID CANNOT AFFORD ELIQUIS, d/c Consult cardiology local wound care accuchecks 34 min pt exam, chart reviewed > 50% of time spent with exam, chart review, pt care coordination Vitals Vitals Vital Signs Date Time Temp Pulse Resp B/P (MAP) Pulse Ox O2 Delivery O2 Flow Rate FiO2 02/24/19 07:00 98.4 95 18 116/69 (85) 94 Room Air 98.4 Physical Exam General: Alert, Oriented X3, Cooperative, No acute distress Heart: Other (IRRR- not on tele ) Lungs: Other Abdomen: Soft, No tenderness Extremities: Other (trace bilateral LE edema. LLE erythema and wound with intact dressing ) Labs LABS Laboratory Tests Test 02/23/19 11:43 02/23/19 17:02 02/23/19 20:42 Glucose (Fingerstick) 141 mg/dL (70-99) 123 mg/dL (70-99) 220 mg/dL (70-99) Comment Review of Relevant I have reviewed the following items rachel (where applicable) has been applied. Labs Laboratory Tests Test 02/23/19 04:40 02/23/19 07:32 02/23/19 11:43 02/23/19 17:02 White Blood Count 8.8 x10^3/uL (4.0-11.0) Red Blood Count 4.78 x10^6/uL (4.30-5.70) Hemoglobin 12.2 g/dL (13.0-17.5) Hematocrit 37.7 % (39.0-53.0) Mean Corpuscular Volume 79 fL (79-100) Mean Corpuscular Hemoglobin 26 pg (25-35) Mean Corpuscular Hemoglobin Concent 32 g/dL (31-37) Red Cell Distribution Width 17.2 % (11.5-14.5) Platelet Count 290 x10^3/uL (140-400) Neutrophils (%) (Auto) 73 % (31-73) Lymphocytes (%) (Auto) 18 % (24-48) Monocytes (%) (Auto) 5 % (0-9) Eosinophils (%) (Auto) 3 % (0-3) Basophils (%) (Auto) 1 % (0-3) Neutrophils # (Auto) 6.4 x10^3/uL (1.8-7.7) Lymphocytes # (Auto) 1.6 x10^3/uL (1.0-4.8) Monocytes # (Auto) 0.5 x10^3/uL (0.0-1.1) Eosinophils # (Auto) 0.3 x10^3/uL (0.0-0.7) Basophils # (Auto) 0.1 x10^3/uL (0.0-0.2) Sodium Level 142 mmol/L (136-145) Potassium Level 4.0 mmol/L (3.5-5.1) Chloride Level 104 mmol/L (98-107) Carbon Dioxide Level 33 mmol/L (21-32) Anion Gap 5 (6-14) Blood Urea Nitrogen 14 mg/dL (8-26) Creatinine 1.1 mg/dL (0.7-1.3) Estimated GFR (Cockcroft-Gault) 69.0 BUN/Creatinine Ratio 13 (6-20) Glucose Level 162 mg/dL (70-99) Calcium Level 9.0 mg/dL (8.5-10.1) Total Bilirubin 0.4 mg/dL (0.2-1.0) Aspartate Amino Transf (AST/SGOT) 13 U/L (15-37) Alanine Aminotransferase (ALT/SGPT) 15 U/L (16-63) Alkaline Phosphatase 87 U/L (46-116) PZ-Vyn-W-Type Natriuretic Peptide 575 pg/mL (0-124) Total Protein 7.5 g/dL (6.4-8.2) Albumin 3.0 g/dL (3.4-5.0) Albumin/Globulin Ratio 0.7 (1.0-1.7) Glucose (Fingerstick) 121 mg/dL (70-99) 141 mg/dL (70-99) 123 mg/dL (70-99) Test 02/23/19 20:42 Glucose (Fingerstick) 220 mg/dL (70-99) Laboratory Tests Test 02/23/19 11:43 02/23/19 17:02 02/23/19 20:42 Glucose (Fingerstick) 141 mg/dL (70-99) 123 mg/dL (70-99) 220 mg/dL (70-99) Microbiology 02/23/19 Blood Culture - Preliminary, Resulted NO GROWTH AFTER 1 DAY Medications Current Medications Vancomycin HCl (Vanco Per Pharmacy) 1 each PRN DAILY PRN MC SEE COMMENTS Last administered on 02/23/19at 06:35; Start 02/23/19 at 04:30; Stop 02/23/19 at 11:28; Status DC Vancomycin HCl 2 gm/Sodium Chloride 500 ml @ 250 mls/hr 1X ONCE IV Last administered on 02/23/19at 04:48; Start 02/23/19 at 05:00; Stop 02/23/19 at 06:59; Status DC Acetaminophen (Tylenol) 650 mg PRN Q4HRS PRN PO FEVER; Start 02/23/19 at 06:00; Stop 02/24/19 at 05:59; Status DC Vancomycin HCl 2 gm/Sodium Chloride 500 ml @ 250 mls/hr Q12H IV ; Start 02/23/19 at 17:00; Stop 02/23/19 at 11:28; Status DC Vancomycin HCl (Vancomycin Trough Level) 1 each 1X ONCE MC ; Start 02/24/19 at 16:30; Stop 02/23/19 at 11:32; Status DC Influenza Virus Vaccine Quadrival (Afluria Quad 2019-20 (3yr Up) Syringe) 0.5 ml ONCE ONCE VAX IM Last administered on 02/23/19at 11:44; Start 02/23/19 at 09:30; Stop 02/23/19 at 09:57; Status DC Apixaban (Eliquis) 5 mg BID PO Last administered on 02/23/19at 13:00; Start 02/23/19 at 12:00; Stop 02/23/19 at 17:26; Status DC Aspirin (Jailyn Aspirin) 325 mg DAILY PO Last administered on 02/23/19at 13:00; Start 02/23/19 at 12:00 Furosemide (Lasix) 40 mg DAILY PO Last administered on 02/23/19 13:01; Start 02/23/19 at 12:00 Insulin Glargine (Lantus Syringe) 8 unit QHS SQ Last administered on 02/23/19at 21:21; Start 02/23/19 at 21:00 Metoprolol Tartrate (Lopressor) 25 mg BID PO Last administered on 02/23/19 21:17; Start 02/23/19 at 12:00 Potassium Chloride (Klor-Con) 20 meq DAILYWBKFT PO Last administered on 02/23/19 13:00; Start 02/23/19 at 12:00 Linezolid (Zyvox) 600 mg BID PO Last administered on 02/23/19 21:17; Start 02/23/19 at 13:00 Micafungin Sodium 100 mg/Dextrose 100 ml @ 100 mls/hr Q24H IV Last administered on 02/23/19 13:18; Start 02/23/19 at 13:00 Piperacillin Sod/ Tazobactam Sod 3.375 gm/Sodium Chloride 50 ml @ 100 mls/hr Q6HRS IV Last administered on 02/24/19 05:16; Start 02/23/19 at 12:00 Daptomycin 1060 mg/Sodium Chloride 50 ml @ 100 mls/hr ONCE ONCE IV ; Start 02/23/19 at 12:30; Stop 02/23/19 at 12:34; Status DC Daptomycin 670 mg/ Sodium Chloride 50 ml @ 100 mls/hr ONCE ONCE IV Last administered on 02/23/19 13:18; Start 02/23/19 at 12:34; Stop 02/23/19 at 12:59; Status DC Lactobacillus Rhamnosus (Culturelle) 1 cap BID PO Last administered on 02/23/19 21:16; Start 02/23/19 at 21:00 Zolpidem Tartrate (Ambien) 5 mg PRN QHS PRN PO INSOMNIA Last administered on 02/23/19at 23:30; Start 02/23/19 at 23:30 Active Scripts Active Lantus (Insulin Glargine,Hum.rec.anlog) 100 Unit/1 Ml Vial 8 Unit SQ QHS 30 Days Klor-Con M20 (Potassium Chloride) 20 Meq Tab.er.prt 20 Meq PO DAILYWBKFT Furosemide 40 Mg Tablet 40 Mg PO DAILY Metoprolol Tartrate 25 Mg Tablet 25 Mg PO BID Eliquis (Apixaban) 5 Mg Tablet 5 Mg PO BID Eliquis (Apixaban) 5 Mg Tablet 10 Mg PO BID 30 Days Reported Aspirin 325 Mg Tablet 1 Tab PO DAILY Augmentin 875-125 Tablet (Amoxicillin/Potassium Clav) 1 Each Tablet 1 Tab PO BID 8 Days Vitals/I & O Vital Sign - Last 24 Hours 02/23/19 02/23/19 02/23/19 02/23/19 11:00 13:01 15:00 19:00 Temp 97.9 97.8 98.4 97.9 97.8 98.4 Pulse 99 99 78 101 Resp 18 18 18 B/P (MAP) 130/85 (100) 130/85 122/55 (77) 108/69 (82) Pulse Ox 95 92 90 O2 Delivery Room Air Room Air Room Air 02/23/19 02/23/19 02/23/19 02/24/19 20:00 21:17 23:00 03:00 Temp 97.9 98.0 97.9 98.0 Pulse 101 47 47 Resp 18 18 B/P (MAP) 108/69 113/88 (96) 115/78 (90) Pulse Ox 90 90 O2 Delivery Room Air Room Air Room Air 02/24/19 02/24/19 02/24/19 03:00 04:00 07:00 Temp 97.9 97.9 98.4 97.9 97.9 98.4 Pulse 47 47 95 Resp 18 18 18 B/P (MAP) 113/88 (96) 113/88 (96) 116/69 (85) Pulse Ox 90 90 94 O2 Delivery Room Air Room Air Room Air Intake and Output 02/23/19 02/23/19 02/24/19 14:59 22:59 06:59 Intake Total 100 ml 350 ml Output Total 450 ml 350 ml Balance -450 ml -250 ml 350 ml LISA COLEY MD Feb 24, 2019 08:09
[2019-02-24] MEDS: FUROSEMIDE 40 MG TABLET. PO SCH (08:10)
[2019-02-24] MEDS: LINEZOLID 600 MG TABLET PO SCH ×2 (08:10→20:56)
[2019-02-24] MEDS: POTASSIUM CHLORIDE 20 MEQ TABLET.ER. PO SCH (08:10)
--- NOTE | 2019-02-24 08:34 | PDOC ---
Infectious Disease Note Subjective Subjective Maybe slightly better. Less pain No F/C/S/N/V/d/SOA tolerating abx ROS ROS o/w neg Vital Sign Vital Signs Vital Signs Date Time Temp Pulse Resp B/P (MAP) Pulse Ox O2 Delivery O2 Flow Rate FiO2 02/24/19 08:09 95 126/74 02/24/19 07:00 98.4 18 94 Room Air 98.4 Physical Exam PHYSICAL EXAM CONSTITUTIONAL: He is a pleasant gentleman. He is cooperative. He is in no acute distress. He is sitting reclined in a chair. HEENT: Pupils are equal and reactive. Oral cavity, pharynx has some questionable dentition. NECK: Supple. No JVD. LUNGS: Decreased in the bases. HEART: S1, S2. ABDOMEN: Morbidly obese and soft. No guarding or rebound. EXTREMITIES: He has chronic lymphedema bilaterally. His left lower extremity has a wound on the anterior aspect of the ulceration. There is no gross odor. There is mild erythema surrounding it. There is no pus. He does have tinea bilaterally on lower extremities. NEUROLOGIC: He is nonfocal. PSYCHIATRIC: Affect is pleasant. Labs Lab Laboratory Tests Test 02/23/19 11:43 02/23/19 17:02 02/23/19 20:42 Glucose (Fingerstick) 141 mg/dL (70-99) 123 mg/dL (70-99) 220 mg/dL (70-99) Micro Microbiology 02/23/19 Blood Culture - Preliminary, Resulted NO GROWTH AFTER 1 DAY Objective Assessment LLE cellultis Tinea Lymphedema H/o Afib RVR s/p cardioversion 01/10 DM Morbid obesity CKD Plan Plan of Care Dapto times one Po Zyvox/Micafungin/Zosyn F/u labs and cults Elevation Will need compression eventually LOUANN BASHIR MD Feb 24, 2019 08:34
[2019-02-24] MEDS: MICAFUNGIN 100 MG in IV DEXTROSE 5% 100ML 100 ML IV SCH (13:00)
--- NOTE | 2019-02-24 14:34 | PDOC ---
PROGRESS NOTES Subjective Subjective Patient seen and examined Objective Objective Vital Signs Date Time Temp Pulse Resp B/P (MAP) Pulse Ox O2 Delivery O2 Flow Rate FiO2 02/24/19 11:00 98.2 100 18 112/64 (80) 97 Room Air 98.2 Intake and Output 02/24/19 07:00 Intake Total 450 ml Output Total 800 ml Balance -350 ml Intake Oral 450 ml Output Urine Total 800 ml # Voids 2 Physical Exam Abdomen: Normal bowel sounds Heart: Regular rate General: mild distress Lungs: Clear to auscultation Assessment Assessment Lower extremity cellulitis on the left. Continue treatment as per the ID service. History of atrial fibrillation. Status post TL and cardioversion. Was treated post cardioversion with Eliquis and then change to aspirin. EKG shows a sinus rhythm. Continuing on beta blockers and aspirin this time. Chronic diastolic heart failure. Clinically compensated. Hypertension. Controlled on present treatment. Chronic kidney disease. Monitoring creatinine. Morbid obesity. Comment Review of Relevant I have reviewed the following items rachel (where applicable) has been applied. Labs Laboratory Tests Test 02/23/19 04:40 02/23/19 07:32 02/23/19 11:43 02/23/19 17:02 White Blood Count 8.8 x10^3/uL (4.0-11.0) Red Blood Count 4.78 x10^6/uL (4.30-5.70) Hemoglobin 12.2 g/dL (13.0-17.5) Hematocrit 37.7 % (39.0-53.0) Mean Corpuscular Volume 79 fL (79-100) Mean Corpuscular Hemoglobin 26 pg (25-35) Mean Corpuscular Hemoglobin Concent 32 g/dL (31-37) Red Cell Distribution Width 17.2 % (11.5-14.5) Platelet Count 290 x10^3/uL (140-400) Neutrophils (%) (Auto) 73 % (31-73) Lymphocytes (%) (Auto) 18 % (24-48) Monocytes (%) (Auto) 5 % (0-9) Eosinophils (%) (Auto) 3 % (0-3) Basophils (%) (Auto) 1 % (0-3) Neutrophils # (Auto) 6.4 x10^3/uL (1.8-7.7) Lymphocytes # (Auto) 1.6 x10^3/uL (1.0-4.8) Monocytes # (Auto) 0.5 x10^3/uL (0.0-1.1) Eosinophils # (Auto) 0.3 x10^3/uL (0.0-0.7) Basophils # (Auto) 0.1 x10^3/uL (0.0-0.2) Sodium Level 142 mmol/L (136-145) Potassium Level 4.0 mmol/L (3.5-5.1) Chloride Level 104 mmol/L (98-107) Carbon Dioxide Level 33 mmol/L (21-32) Anion Gap 5 (6-14) Blood Urea Nitrogen 14 mg/dL (8-26) Creatinine 1.1 mg/dL (0.7-1.3) Estimated GFR (Cockcroft-Gault) 69.0 BUN/Creatinine Ratio 13 (6-20) Glucose Level 162 mg/dL (70-99) Calcium Level 9.0 mg/dL (8.5-10.1) Total Bilirubin 0.4 mg/dL (0.2-1.0) Aspartate Amino Transf (AST/SGOT) 13 U/L (15-37) Alanine Aminotransferase (ALT/SGPT) 15 U/L (16-63) Alkaline Phosphatase 87 U/L (46-116) YG-Quy-T-Type Natriuretic Peptide 575 pg/mL (0-124) Total Protein 7.5 g/dL (6.4-8.2) Albumin 3.0 g/dL (3.4-5.0) Albumin/Globulin Ratio 0.7 (1.0-1.7) Glucose (Fingerstick) 121 mg/dL (70-99) 141 mg/dL (70-99) 123 mg/dL (70-99) Test 02/23/19 20:42 02/24/19 07:25 02/24/19 11:30 Glucose (Fingerstick) 220 mg/dL (70-99) 146 mg/dL (70-99) 119 mg/dL (70-99) Laboratory Tests Test 02/23/19 17:02 02/23/19 20:42 02/24/19 07:25 02/24/19 11:30 Glucose (Fingerstick) 123 mg/dL (70-99) 220 mg/dL (70-99) 146 mg/dL (70-99) 119 mg/dL (70-99) Microbiology 02/23/19 Blood Culture - Preliminary, Resulted NO GROWTH AFTER 1 DAY Medications Current Medications Vancomycin HCl (Vanco Per Pharmacy) 1 each PRN DAILY PRN MC SEE COMMENTS Last administered on 02/23/19at 06:35; Start 02/23/19 at 04:30; Stop 02/23/19 at 11:28; Status DC Vancomycin HCl 2 gm/Sodium Chloride 500 ml @ 250 mls/hr 1X ONCE IV Last a dministered on 02/23/19at 04:48; Start 02/23/19 at 05:00; Stop 02/23/19 at 06:59; Status DC Acetaminophen (Tylenol) 650 mg PRN Q4HRS PRN PO FEVER; Start 02/23/19 at 06:00; Stop 02/24/19 at 05:59; Status DC Vancomycin HCl 2 gm/Sodium Chloride 500 ml @ 250 mls/hr Q12H IV ; Start 02/23/19 at 17:00; Stop 02/23/19 at 11:28; Status DC Vancomycin HCl (Vancomycin Trough Level) 1 each 1X ONCE MC ; Start 02/24/19 at 16:30; Stop 02/23/19 at 11:32; Status DC Influenza Virus Vaccine Quadrival (Afluria Quad 2019-20 (3yr Up) Syringe) 0.5 ml ONCE ONCE VAX IM Last administered on 02/23/19at 11:44; Start 02/23/19 at 09:30; Stop 02/23/19 at 09:57; Status DC Apixaban (Eliquis) 5 mg BID PO Last administered on 02/23/19at 13:00; Start 02/23/19 at 12:00; Stop 02/23/19 at 17:26; Status DC Aspirin (Jailyn Aspirin) 325 mg DAILY PO Last administered on 02/24/19at 08:09; Start 02/23/19 at 12:00 Furosemide (Lasix) 40 mg DAILY PO Last administered on 02/24/19at 08:10; Start 02/23/19 at 12:00 Insulin Glargine (Lantus Syringe) 8 unit QHS SQ Last administered on 02/23/19at 21:21; Start 02/23/19 at 21:00 Metoprolol Tartrate (Lopressor) 25 mg BID PO Last administered on 02/24/19 08:09; Start 02/23/19 at 12:00 Potassium Chloride (Klor-Con) 20 meq DAILYWBKFT PO Last administered on 02/24/19at 08:10; Start 02/23/19 at 12:00 Linezolid (Zyvox) 600 mg BID PO Last administered on 02/24/19 08:10; Start 02/23/19 at 13:00 Micafungin Sodium 100 mg/Dextrose 100 ml @ 100 mls/hr Q24H IV Last administered on 02/24/19 13:00; Start 02/23/19 at 13:00 Piperacillin Sod/ Tazobactam Sod 3.375 gm/Sodium Chloride 50 ml @ 100 mls/hr Q6HRS IV Last administered on 02/24/19at 11:49; Start 02/23/19 at 12:00 Daptomycin 1060 mg/Sodium Chloride 50 ml @ 100 mls/hr ONCE ONCE IV ; Start 02/23/19 at 12:30; Stop 02/23/19 at 12:34; Status DC Daptomycin 670 mg/ Sodium Chloride 50 ml @ 100 mls/hr ONCE ONCE IV Last administered on 02/23/19 13:18; Start 02/23/19 at 12:34; Stop 02/23/19 at 12:59; Status DC Lactobacillus Rhamnosus (Culturelle) 1 cap BID PO Last administered on 02/24/19 08:09; Start 02/23/19 at 21:00 Zolpidem Tartrate (Ambien) 5 mg PRN QHS PRN PO INSOMNIA Last administered on 02/23/19at 23:30; Start 02/23/19 at 23:30 Active Scripts Active Lantus (Insulin Glargine,Hum.rec.anlog) 100 Unit/1 Ml Vial 8 Unit SQ QHS 30 Days Klor-Con M20 (Potassium Chloride) 20 Meq Tab.er.prt 20 Meq PO DAILYWBKFT Furosemide 40 Mg Tablet 40 Mg PO DAILY Metoprolol Tartrate 25 Mg Tablet 25 Mg PO BID Eliquis (Apixaban) 5 Mg Tablet 5 Mg PO BID Eliquis (Apixaban) 5 Mg Tablet 10 Mg PO BID 30 Days Reported Aspirin 325 Mg Tablet 1 Tab PO DAILY Augmentin 875-125 Tablet (Amoxicillin/Potassium Clav) 1 Each Tablet 1 Tab PO BID 8 Days Vitals/I & O Vital Sign - Last 24 Hours 02/23/19 02/23/19 02/23/19 02/23/19 15:00 19:00 20:00 21:17 Temp 97.8 98.4 97.8 98.4 Pulse 78 101 101 Resp 18 18 B/P (MAP) 122/55 (77) 108/69 (82) 108/69 Pulse Ox 92 90 O2 Delivery Room Air Room Air Room Air 02/23/19 02/24/19 02/24/19 02/24/19 23:00 03:00 03:00 04:00 Temp 97.9 98.0 97.9 97.9 97.9 98.0 97.9 97.9 Pulse 47 47 47 47 Resp 18 18 18 18 B/P (MAP) 113/88 (96) 115/78 (90) 113/88 (96) 113/88 (96) Pulse Ox 90 90 90 90 O2 Delivery Room Air Room Air Room Air Room Air 02/24/19 02/24/19 02/24/19 07:00 08:09 11:00 Temp 98.4 98.2 98.4 98.2 Pulse 95 95 100 Resp 18 18 B/P (MAP) 116/69 (85) 126/74 112/64 (80) Pulse Ox 94 97 O2 Delivery Room Air Room Air Intake and Output 02/23/19 02/23/19 02/24/19 15:00 23:00 07:00 Intake Total 100 ml 350 ml Output Total 450 ml 350 ml Balance -450 ml -250 ml 350 ml JOSE SUMNER MD Feb 24, 2019 14:34
--- NOTE | 2019-02-24 16:26 | NUR ---
SW consulted for resources, financial hardship. Chart reviewed and pt lives at home. SW provided pt with community, healthcare resources. Pt is provided with [facility] and [facility] brochure for insulin assistance. Pt accepted resources and was appreciative.
[2019-02-24] MEDS: INSULIN GLARGINE SYRINGE. SQ SCH (21:01)
[2019-02-25] MEDS: PIPERACILLIN/TAZOBACTAM 3.375 GM in IV NORMAL SALINE 50ML 50 ML IV SCH ×5 (00:06→23:33)
[2019-02-25 03:00] VITALS: BP 110/51
[2019-02-25 04:36] LABS: BASO # 0.1 x10^3/uL (0.0-0.2); BASO % 1 % (0-3); EOS # 0.6 x10^3/uL (0.0-0.7); EOS % 6 % (0-3); HEMATOCRIT 34.8 % (39.0-53.0); HEMOGLOBIN 11.2 g/dL (13.0-17.5); LYMPH % 10 % (24-48); MEAN CORPUSCULAR HEMOGLOBIN 25 pg (25-35); MEAN CORPUSCULAR HGB CONC 32 g/dL (31-37); MEAN CORPUSCULAR VOLUME 79 fL (79-100); MONO # 0.5 x10^3/uL (0.0-1.1); MONO % 5 % (0-9); NEUT # 7.6 x10^3/uL (1.8-7.7); NEUT % 77 % (31-73); PLATELET COUNT 262 x10^3/uL (140-400); RED BLOOD COUNT 4.41 x10^6/uL (4.30-5.70); RED CELL DISTRIBUTION WIDTH 17.2 % (11.5-14.5); WHITE BLOOD COUNT 9.9 x10^3/uL (4.0-11.0)
[2019-02-25 05:03] LABS: ALBUMIN 2.6 g/dL (3.4-5.0); ALBUMIN/GLOBULIN RATIO 0.6 (1.0-1.7); CALCIUM 9.3 mg/dL (8.5-10.1); CREATININE 1.4 mg/dL (0.7-1.3); GFR 52.2; TOTAL BILIRUBIN 0.7 mg/dL (0.2-1.0)
[2019-02-25 07:00] VITALS: BP 111/53
[2019-02-25] MEDS: METOPROLOL TART IMMED RELEASE 25 MG TABLET. PO SCH ×2 (09:57→21:40)
[2019-02-25] MEDS: LACTOBACILLUS RHAMNOSUS GG 1 CAPSULE. PO SCH ×2 (09:57→21:40)
[2019-02-25] MEDS: ASPIRIN 325 MG TABLET PO SCH (09:58)
[2019-02-25] MEDS: LINEZOLID 600 MG TABLET PO SCH ×2 (09:58→21:40)
[2019-02-25] MEDS: POTASSIUM CHLORIDE 20 MEQ TABLET.ER. PO SCH (09:58)
[2019-02-25] MEDS: FUROSEMIDE 40 MG TABLET. PO SCH (09:58)
--- NOTE | 2019-02-25 10:37 | PDOC ---
PROGRESS NOTES History of Present Illness History of Present Illness VTE Prophylaxis Ordered VTE Prophylaxis Devices: Contraindicated VTE Pharmacological Prophylaxi: Yes Assessment/Plan Assessment/Plan IMPRESSION LLE swelling -severe lymphedema// cellulitis Afib with RVR - s/p TL and electrical CARDIOVERSION () hx sustained vtach (40 beats), asymptomatic, stable post electrical c ardioversion HTN morbid obesity DIABETES, UNCONTROLLED [id number] score 2 correlating with a 2.2% risk for stroke per year. asa for stroke prevention, cannot afford coumadin monitoring plan Elevation/Compression iv antibiotics consult ID CANNOT AFFORD ELIQUIS, d/c Consult cardiology local wound care accuchecks 29 min pt exam, chart reviewed > 50% of time spent with exam, chart review, pt care coordination Vitals Vitals Vital Signs Date Time Temp Pulse Resp B/P (MAP) Pulse Ox O2 Delivery O2 Flow Rate FiO2 02/25/19 09:57 87 111/53 02/25/19 08:00 Room Air 02/25/19 07:00 97.7 18 94 97.7 Physical Exam Physical Exam CONSTITUTIONAL: He is a pleasant gentleman. He is cooperative. He is in no acute distress. He is sitting reclined in a chair. HEENT: Pupils are equal and reactive. Oral cavity, pharynx has some questionable dentition. NECK: Supple. No JVD. LUNGS: Decreased in the bases. HEART: S1, S2. ABDOMEN: Morbidly obese and soft. No guarding or rebound. EXTREMITIES: He has chronic lymphedema bilaterally. His left lower extremity has a wound on the anterior aspect of the ulceration. There is no gross odor. There is mild erythema surrounding it. There is no pus. He does have tinea bilaterally on lower extremities. NEUROLOGIC: He is nonfocal. PSYCHIATRIC: Affect is pleasant. General: mild distress Heart: Regular rate Lungs: Other Abdomen: Normal bowel sounds Extremities: Other (trace bilateral LE edema. LLE erythema and wound with intact dressing ) Labs LABS PATIENT: DARRICK STOVER ACCT: [id number] LOC: 5 [facility] U: [id number] AGE/SX: 59/M ROOM: [facility] RE02/23/[address]: ED LOZANO : 1960 BED: 1 DIS: STATUS: ADM IN TLOC: ------- ----- SPEC #: [id number] JARON: 02/23/19 STATUS: RES REQ #: [id number] RECD: 02/23/19 [facility] DR: VALERIO PORTER Jr., DO SOURCE: BLOOD ENTR: 02/23/[address]: EVERETT HDZES: ORDERED: BCULT Procedure Result BLOOD CULTURE Preliminary NO GROWTH AFTER 2 DAYS Laboratory Tests Test 02/24/19 11:30 02/24/19 16:50 02/24/19 20:55 02/25/19 04:25 Glucose (Fingerstick) 119 mg/dL (70-99) 140 mg/dL (70-99) 189 mg/dL (70-99) White Blood Count 9.9 x10^3/uL (4.0-11.0) Red Blood Count 4.41 x10^6/uL (4.30-5.70) Hemoglobin 11.2 g/dL (13.0-17.5) Hematocrit 34.8 % (39.0-53.0) Mean Corpuscular Volume 79 fL (79-100) Mean Corpuscular Hemoglobin 25 pg (25-35) Mean Corpuscular Hemoglobin Concent 32 g/dL (31-37) Red Cell Distribution Width 17.2 % (11.5-14.5) Platelet Count 262 x10^3/uL (140-400) Neutrophils (%) (Auto) 77 % (31-73) Lymphocytes (%) (Auto) 10 % (24-48) Monocytes (%) (Auto) 5 % (0-9) Eosinophils (%) (Auto) 6 % (0-3) Basophils (%) (Auto) 1 % (0-3) Neutrophils # (Auto) 7.6 x10^3/uL (1.8-7.7) Lymphocytes # (Auto) 1.0 x10^3/uL (1.0-4.8) Monocytes # (Auto) 0.5 x10^3/uL (0.0-1.1) Eosinophils # (Auto) 0.6 x10^3/uL (0.0-0.7) Basophils # (Auto) 0.1 x10^3/uL (0.0-0.2) Sodium Level 140 mmol/L (136-145) Potassium Level 4.0 mmol/L (3.5-5.1) Chloride Level 102 mmol/L (98-107) Carbon Dioxide Level 30 mmol/L (21-32) Anion Gap 8 (6-14) Blood Urea Nitrogen 15 mg/dL (8-26) Creatinine 1.4 mg/dL (0.7-1.3) Estimated GFR (Cockcroft-Gault) 52.2 BUN/Creatinine Ratio 11 (6-20) Glucose Level 144 mg/dL (70-99) Calcium Level 9.3 mg/dL (8.5-10.1) Total Bilirubin 0.7 mg/dL (0.2-1.0) Aspartate Amino Transf (AST/SGOT) 22 U/L (15-37) Alanine Aminotransferase (ALT/SGPT) 21 U/L (16-63) Alkaline Phosphatase 91 U/L (46-116) Total Protein 7.0 g/dL (6.4-8.2) Albumin 2.6 g/dL (3.4-5.0) Albumin/Globulin Ratio 0.6 (1.0-1.7) Test 02/25/19 07:51 Glucose (Fingerstick) 109 mg/dL (70-99) Comment Review of Relevant I have reviewed the following items rachel (where applicable) has been applied. Labs Laboratory Tests Test 02/23/19 11:43 02/23/19 17:02 02/23/19 20:42 02/24/19 07:25 Glucose (Fingerstick) 141 mg/dL (70-99) 123 mg/dL (70-99) 220 mg/dL (70-99) 146 mg/dL (70-99) Test 02/24/19 11:30 02/24/19 16:50 02/24/19 20:55 02/25/19 04:25 Glucose (Fingerstick) 119 mg/dL (70-99) 140 mg/dL (70-99) 189 mg/dL (70-99) White Blood Count 9.9 x10^3/uL (4.0-11.0) Red Blood Count 4.41 x10^6/uL (4.30-5.70) Hemoglobin 11.2 g/dL (13.0-17.5) Hematocrit 34.8 % (39.0-53.0) Mean Corpuscular Volume 79 fL (79-100) Mean Corpuscular Hemoglobin 25 pg (25-35) Mean Corpuscular Hemoglobin Concent 32 g/dL (31-37) Red Cell Distribution Width 17.2 % (11.5-14.5) Platelet Count 262 x10^3/uL (140-400) Neutrophils (%) (Auto) 77 % (31-73) Lymphocytes (%) (Auto) 10 % (24-48) Monocytes (%) (Auto) 5 % (0-9) Eosinophils (%) (Auto) 6 % (0-3) Basophils (%) (Auto) 1 % (0-3) Neutrophils # (Auto) 7.6 x10^3/uL (1.8-7.7) Lymphocytes # (Auto) 1.0 x10^3/uL (1.0-4.8) Monocytes # (Auto) 0.5 x10^3/uL (0.0-1.1) Eosinophils # (Auto) 0.6 x10^3/uL (0.0-0.7) Basophils # (Auto) 0.1 x10^3/uL (0.0-0.2) Sodium Level 140 mmol/L (136-145) Potassium Level 4.0 mmol/L (3.5-5.1) Chloride Level 102 mmol/L (98-107) Carbon Dioxide Level 30 mmol/L (21-32) Anion Gap 8 (6-14) Blood Urea Nitrogen 15 mg/dL (8-26) Creatinine 1.4 mg/dL (0.7-1.3) Estimated GFR (Cockcroft-Gault) 52.2 BUN/Creatinine Ratio 11 (6-20) Glucose Level 144 mg/dL (70-99) Calcium Level 9.3 mg/dL (8.5-10.1) Total Bilirubin 0.7 mg/dL (0.2-1.0) Aspartate Amino Transf (AST/SGOT) 22 U/L (15-37) Alanine Aminotransferase (ALT/SGPT) 21 U/L (16-63) Alkaline Phosphatase 91 U/L (46-116) Total Protein 7.0 g/dL (6.4-8.2) Albumin 2.6 g/dL (3.4-5.0) Albumin/Globulin Ratio 0.6 (1.0-1.7) Test 02/25/19 07:51 Glucose (Fingerstick) 109 mg/dL (70-99) Laboratory Tests Test 02/24/19 11:30 02/24/19 16:50 02/24/19 20:55 02/25/19 04:25 Glucose (Fingerstick) 119 mg/dL (70-99) 140 mg/dL (70-99) 189 mg/dL (70-99) White Blood Count 9.9 x10^3/uL (4.0-11.0) Red Blood Count 4.41 x10^6/uL (4.30-5.70) Hemoglobin 11.2 g/dL (13.0-17.5) Hematocrit 34.8 % (39.0-53.0) Mean Corpuscular Volume 79 fL (79-100) Mean Corpuscular Hemoglobin 25 pg (25-35) Mean Corpuscular Hemoglobin Concent 32 g/dL (31-37) Red Cell Distribution Width 17.2 % (11.5-14.5) Platelet Count 262 x10^3/uL (140-400) Neutrophils (%) (Auto) 77 % (31-73) Lymphocytes (%) (Auto) 10 % (24-48) Monocytes (%) (Auto) 5 % (0-9) Eosinophils (%) (Auto) 6 % (0-3) Basophils (%) (Auto) 1 % (0-3) Neutrophils # (Auto) 7.6 x10^3/uL (1.8-7.7) Lymphocytes # (Auto) 1.0 x10^3/uL (1.0-4.8) Monocytes # (Auto) 0.5 x10^3/uL (0.0-1.1) Eosinophils # (Auto) 0.6 x10^3/uL (0.0-0.7) Basophils # (Auto) 0.1 x10^3/uL (0.0-0.2) Sodium Level 140 mmol/L (136-145) Potassium Level 4.0 mmol/L (3.5-5.1) Chloride Level 102 mmol/L (98-107) Carbon Dioxide Level 30 mmol/L (21-32) Anion Gap 8 (6-14) Blood Urea Nitrogen 15 mg/dL (8-26) Creatinine 1.4 mg/dL (0.7-1.3) Estimated GFR (Cockcroft-Gault) 52.2 BUN/Creatinine Ratio 11 (6-20) Glucose Level 144 mg/dL (70-99) Calcium Level 9.3 mg/dL (8.5-10.1) Total Bilirubin 0.7 mg/dL (0.2-1.0) Aspartate Amino Transf (AST/SGOT) 22 U/L (15-37) Alanine Aminotransferase (ALT/SGPT) 21 U/L (16-63) Alkaline Phosphatase 91 U/L (46-116) Total Protein 7.0 g/dL (6.4-8.2) Albumin 2.6 g/dL (3.4-5.0) Albumin/Globulin Ratio 0.6 (1.0-1.7) Test 02/25/19 07:51 Glucose (Fingerstick) 109 mg/dL (70-99) Microbiology 02/23/19 Blood Culture - Preliminary, Resulted NO GROWTH AFTER 2 DAYS Medications Current Medications Vancomycin HCl (Vanco Per Pharmacy) 1 each PRN DAILY PRN MC SEE COMMENTS Last administered on 02/23/19at 06:35; Start 02/23/19 at 04:30; Stop 02/23/19 at 11:28; Status DC Vancomycin HCl 2 gm/Sodium Chloride 500 ml @ 250 mls/hr 1X ONCE IV Last administered on 02/23/19at 04:48; Start 02/23/19 at 05:00; Stop 02/23/19 at 06:59; Status DC Acetaminophen (Tylenol) 650 mg PRN Q4HRS PRN PO FEVER; Start 02/23/19 at 06:00; Stop 02/24/19 at 05:59; Status DC Vancomycin HCl 2 gm/Sodium Chloride 500 ml @ 250 mls/hr Q12H IV ; Start 02/23/19 at 17:00; Stop 02/23/19 at 11:28; Status DC Vancomycin HCl (Vancomycin Trough Level) 1 each 1X ONCE MC ; Start 02/24/19 at 16:30; Stop 02/23/19 at 11:32; Status DC Influenza Virus Vaccine Quadrival (Afluria Quad 2019-20 (3yr Up) Syringe) 0.5 ml ONCE ONCE VAX IM Last administered on 02/23/19at 11:44; Start 02/23/19 at 09:30; Stop 02/23/19 at 09:57; Status DC Apixaban (Eliquis) 5 mg BID PO Last administered on 02/23/19at 13:00; Start 02/23/19 at 12:00; Stop 02/23/19 at 17:26; Status DC Aspirin (Jaliyn Aspirin) 325 mg DAILY PO Last administered on 02/25/19at 09:58; Start 02/23/19 at 12:00 Furosemide (Lasix) 40 mg DAILY PO Last administered on 02/25/19at 09:58; Start 02/23/19 at 12:00 Insulin Glargine (Lantus Syringe) 8 unit QHS SQ Last administered on 02/24/19at 21:01; Start 02/23/19 at 21:00 Metoprolol Tartrate (Lopressor) 25 mg BID PO Last administered on 02/25/19 09:57; Start 02/23/19 at 12:00 Potassium Chloride (Klor-Con) 20 meq DAILYWBKFT PO Last administered on 02/25/19 09:58; Start 02/23/19 at 12:00 Linezolid (Zyvox) 600 mg BID PO Last administered on 02/25/19 09:58; Start 02/23/19 at 13:00 Micafungin Sodium 100 mg/Dextrose 100 ml @ 100 mls/hr Q24H IV Last adminis tered on 02/24/19at 13:00; Start 02/23/19 at 13:00 Piperacillin Sod/ Tazobactam Sod 3.375 gm/Sodium Chloride 50 ml @ 100 mls/hr Q6HRS IV Last administered on 02/25/19at 06:31; Start 02/23/19 at 12:00 Daptomycin 1060 mg/Sodium Chloride 50 ml @ 100 mls/hr ONCE ONCE IV ; Start 02/23/19 at 12:30; Stop 02/23/19 at 12:34; Status DC Daptomycin 670 mg/ Sodium Chloride 50 ml @ 100 mls/hr ONCE ONCE IV Last administered on 02/23/19 13:18; Start 02/23/19 at 12:34; Stop 02/23/19 at 12:59; Status DC Lactobacillus Rhamnosus (Culturelle) 1 cap BID PO Last administered on 02/25/19 09:57; Start 02/23/19 at 21:00 Zolpidem Tartrate (Ambien) 5 mg PRN QHS PRN PO INSOMNIA Last administered on 02/23/19at 23:30; Start 02/23/19 at 23:30 Active Scripts Active Lantus (Insulin Glargine,Hum.rec.anlog) 100 Unit/1 Ml Vial 8 Unit SQ QHS 30 Days Klor-Con M20 (Potassium Chloride) 20 Meq Tab.er.prt 20 Meq PO DAILYWBKFT Furosemide 40 Mg Tablet 40 Mg PO DAILY Metoprolol Tartrate 25 Mg Tablet 25 Mg PO BID Reported Aspirin 325 Mg Tablet 1 Tab PO DAILY Augmentin 875-125 Tablet (Amoxicillin/Potassium Clav) 1 Each Tablet 1 Tab PO BID 8 Days Vitals/I & O Vital Sign - Last 24 Hours 02/24/19 02/24/19 02/24/19 02/24/19 11:00 15:00 19:00 20:00 Temp 98.2 98.0 98.3 98.2 98.0 98.3 Pulse 100 90 97 Resp 18 18 18 B/P (MAP) 112/64 (80) 96/60 (72) 116/63 (80) Pulse Ox 97 92 92 O2 Delivery Room Air Room Air Room Air Room Air 02/24/19 02/24/19 02/25/19 02/25/19 20:56 23:00 03:00 07:00 Temp 98.3 98.3 97.7 98.3 98.3 97.7 Pulse 97 81 58 87 Resp 18 B/P (MAP) 116/63 111/68 (82) 110/51 (70) 111/53 (72) Pulse Ox 92 91 94 O2 Delivery Room Air Room Air Room Air 02/25/19 02/25/19 08:00 09:57 Pulse 87 B/P (MAP) 111/53 O2 Delivery Room Air Intake and Output 02/24/19 02/24/19 02/25/19 14:59 22:59 06:59 Intake Total 480 ml 50 ml Balance 480 ml 50 ml LISA COLEY MD Feb 25, 2019 10:37
--- NOTE | 2019-02-25 10:43 | PDOC ---
Infectious Disease Note Subjective Subjective Right leg itches, trying not to scratch Walked earlier Some diarrhea Denies loss of appretite, N/V/cramps No fevrs or chills ROS ROS per HPI Vital Sign Vital Signs Vital Signs Date Time Temp Pulse Resp B/P (MAP) Pulse Ox O2 Delivery O2 Flow Rate FiO2 02/25/19 09:57 87 111/53 02/25/19 08:00 Room Air 02/25/19 07:00 97.7 18 94 97.7 Physical Exam PHYSICAL EXAM GENERAL: Sitting in the chair, alert, cutting fingernails and joking HEENT: Pupils are equal and reactive. Oral cavity, pharynx has some questionable dentition. NECK: Supple. LUNGS: Decreased in the bases. HEART: S1, S2. ABDOMEN: Morbidly obese and soft. No guarding or rebound. EXTREMITIES: Chronic lymphedema bilaterally. His left lower extremity has a wound on the anterior aspect of the ulceration. There is no gross odor. There is mild erythema surrounding it. There is no pus. He does have tinea bilaterally on lower extremities. Scratch braden RLE. NEUROLOGIC: Nonfocal. Labs Lab Laboratory Tests Test 02/24/19 11:30 02/24/19 16:50 02/24/19 20:55 02/25/19 04:25 Glucose (Fingerstick) 119 mg/dL (70-99) 140 mg/dL (70-99) 189 mg/dL (70-99) White Blood Count 9.9 x10^3/uL (4.0-11.0) Red Blood Count 4.41 x10^6/uL (4.30-5.70) Hemoglobin 11.2 g/dL (13.0-17.5) Hematocrit 34.8 % (39.0-53.0) Mean Corpuscular Volume 79 fL (79-100) Mean Corpuscular Hemoglobin 25 pg (25-35) Mean Corpuscular Hemoglobin Concent 32 g/dL (31-37) Red Cell Distribution Width 17.2 % (11.5-14.5) Platelet Count 262 x10^3/uL (140-400) Neutrophils (%) (Auto) 77 % (31-73) Lymphocytes (%) (Auto) 10 % (24-48) Monocytes (%) (Auto) 5 % (0-9) Eosinophils (%) (Auto) 6 % (0-3) Basophils (%) (Auto) 1 % (0-3) Neutrophils # (Auto) 7.6 x10^3/uL (1.8-7.7) Lymphocytes # (Auto) 1.0 x10^3/uL (1.0-4.8) Monocytes # (Auto) 0.5 x10^3/uL (0.0-1.1) Eosinophils # (Auto) 0.6 x10^3/uL (0.0-0.7) Basophils # (Auto) 0.1 x10^3/uL (0.0-0.2) Sodium Level 140 mmol/L (136-145) Potassium Level 4.0 mmol/L (3.5-5.1) Chloride Level 102 mmol/L (98-107) Carbon Dioxide Level 30 mmol/L (21-32) Anion Gap 8 (6-14) Blood Urea Nitrogen 15 mg/dL (8-26) Creatinine 1.4 mg/dL (0.7-1.3) Estimated GFR (Cockcroft-Gault) 52.2 BUN/Creatinine Ratio 11 (6-20) Glucose Level 144 mg/dL (70-99) Calcium Level 9.3 mg/dL (8.5-10.1) Total Bilirubin 0.7 mg/dL (0.2-1.0) Aspartate Amino Transf (AST/SGOT) 22 U/L (15-37) Alanine Aminotransferase (ALT/SGPT) 21 U/L (16-63) Alkaline Phosphatase 91 U/L (46-116) Total Protein 7.0 g/dL (6.4-8.2) Albumin 2.6 g/dL (3.4-5.0) Albumin/Globulin Ratio 0.6 (1.0-1.7) Test 02/25/19 07:51 Glucose (Fingerstick) 109 mg/dL (70-99) Micro Microbiology 02/23/19 Blood Culture - Preliminary, Resulted NO GROWTH AFTER 2 DAYS Objective Assessment LLE cellultis Tinea Lymphedema H/o Afib RVR s/p cardioversion 01/10 DM Morbid obesity CKD Plan Plan of Care Dapto times one Po Zyvox/Micafungin/Zosyn Probiotics F/u labs and cults Elevation Will need compression eventually Attending Co-Sign The patient was seen and interviewed as well as examined at the bedside. The chart was reviewed. The case was discussed. Agree with the plan of care. RENETTA CROWLEY APRN Feb 25, 2019 10:43 POPPY BORJA MD Feb 25, 2019 13:39
[2019-02-25 11:00] VITALS: BP 131/74
[2019-02-25] MEDS: MICAFUNGIN 100 MG in IV DEXTROSE 5% 100ML 100 ML IV SCH (14:08)
[2019-02-25 15:35] VITALS: BP 105/59
[2019-02-25 19:00] VITALS: BP 119/83
[2019-02-25] MEDS: INSULIN GLARGINE SYRINGE. SQ SCH (21:00)
[2019-02-25 23:00] VITALS: BP 112/58
[2019-02-25] MEDS: ZOLPIDEM 5 MG TABLET. PO PRN (23:07)
[2019-02-26] VITALS (7 sets, daily range): BP systolic 103–121; BP diastolic 56–73
[2019-02-26] MEDS: PIPERACILLIN/TAZOBACTAM 3.375 GM in IV NORMAL SALINE 50ML 50 ML IV SCH ×3 (05:42→18:23)
[2019-02-26] MEDS: INSULIN LISPRO 300 UNITS/3 ML VIAL. SQ SCH ×3 (08:00→17:00)
[2019-02-26] MEDS ORDERED: ACETAMINOPHEN/CODEINE 300/30MG TABLET. PO PRN (08:30)
[2019-02-26] MEDS ORDERED: DEXTROSE 50% 25 GM / 50ML DISP.SYRIN. IV PRN (08:30)
[2019-02-26] MEDS ORDERED: ACETAMINOPHEN 500 MG TABLET PO PRN (08:30)
[2019-02-26] MEDS ORDERED: ONDANSETRON PF 4 MG/2 ML VIAL. IVP PRN (08:30)
[2019-02-26] MEDS: METOPROLOL TART IMMED RELEASE 25 MG TABLET. PO SCH ×2 (08:40→21:24)
[2019-02-26] MEDS: LACTOBACILLUS RHAMNOSUS GG 1 CAPSULE. PO SCH ×2 (08:40→21:24)
[2019-02-26] MEDS: ASPIRIN 325 MG TABLET PO SCH (08:40)
[2019-02-26] MEDS: POTASSIUM CHLORIDE 20 MEQ TABLET.ER. PO SCH (08:40)
[2019-02-26] MEDS: FUROSEMIDE 40 MG TABLET. PO SCH (08:41)
[2019-02-26] MEDS: LINEZOLID 600 MG TABLET PO SCH ×2 (08:41→21:24)
[2019-02-26] MEDS ORDERED: IV NORMAL SALINE 1000ML BAG 1,000 ML IV SCH (09:00)
--- NOTE | 2019-02-26 10:05 | PDOC ---
PROGRESS NOTES Chief Complaint Chief Complaint left leg cellulitis sepsis no organ dysfcn PRe DM? Morbid obesity bMI 61 Self pay Chronic lymphedema Long thickened toe nails Hx ckd chronic diastolic heart failure, comepnsated HX chronci a fib History of Present Illness History of Present Illness The bed is too small for him HE is leevating his legs on chair Wound dressing i took off and inspected RAw skin left leg дмитрий lateral side but better smell per his acct and no drainage LOng talk today, frustrated about his no insurance Applying for [employer] caid ID has him on micafungin, zyvox, zosyn NO efvers, no leukocytosis BS 1502-180s, claims no DM CArdiac note - a fib, diastolic heart failure all stable PLAN: CPM, MAy add esr and hgba1c to next blood draw CERat 1.4 - start IVF x1 L only? (already has signif swelling and diastolic hea rt fialure) and recehck tmr Avoid nephrotoxns if possible SP no SNU benefots - sw on case Vitals Vitals Vital Signs Date Time Temp Pulse Resp B/P (MAP) Pulse Ox O2 Delivery O2 Flow Rate FiO2 02/26/19 08:40 86 109/74 02/26/19 08:00 Room Air 02/26/19 07:35 97.3 18 95 97.3 02/26/19 03:00 2.0 Physical Exam Physical Exam GENERAL: Sitting in the chair, alert, cutting fingernails and joking HEENT: Pupils are equal and reactive. Oral cavity, pharynx has some questionable dentition. NECK: Supple. LUNGS: Decreased in the bases. HEART: S1, S2. ABDOMEN: Morbidly obese and soft. No guarding or rebound. EXTREMITIES: Chronic lymphedema bilaterally. His left lower extremity has a wound on the anterior aspect of the ulceration. There is no gross odor. There is mild erythema surrounding it. There is no pus. He does have tinea bilaterally on lower extremities. Scratch braden RLE. NEUROLOGIC: Nonfocal. General: Alert, Oriented X3, Cooperative, mild distress Heart: Regular rate, Normal S1, Normal S2 Lungs: Other Abdomen: Normal bowel sounds Extremities: No clubbing, No cyanosis, Other (trace bilateral LE edema. LLE erythema and wound with intact dressing ) Skin: Other (red raw skin,left ace, lateral side, no foul smelling drainage) Labs LABS Laboratory Tests Test 02/25/19 11:53 02/25/19 16:57 02/25/19 20:23 02/26/19 07:39 Glucose (Fingerstick) 113 mg/dL (70-99) 165 mg/dL (70-99) 164 mg/dL (70-99) 121 mg/dL (70-99) Review of Systems Review of Systems soa on exertion, otherwsie no cp no diarrhea or abd pain or constipation or emesis Comment Review of Relevant I have reviewed the following items rachel (where applicable) has been applied. Labs Laboratory Tests Test 02/24/19 11:30 02/24/19 16:50 02/24/19 20:55 02/25/19 04:25 Glucose (Fingerstick) 119 mg/dL (70-99) 140 mg/dL (70-99) 189 mg/dL (70-99) White Blood Count 9.9 x10^3/uL (4.0-11.0) Red Blood Count 4.41 x10^6/uL (4.30-5.70) Hemoglobin 11.2 g/dL (13.0-17.5) Hematocrit 34.8 % (39.0-53.0) Mean Corpuscular Volume 79 fL (79-100) Mean Corpuscular Hemoglobin 25 pg (25-35) Mean Corpuscular Hemoglobin Concent 32 g/dL (31-37) Red Cell Distribution Width 17.2 % (11.5-14.5) Platelet Count 262 x10^3/uL (140-400) Neutrophils (%) (Auto) 77 % (31-73) Lymphocytes (%) (Auto) 10 % (24-48) Monocytes (%) (Auto) 5 % (0-9) Eosinophils (%) (Auto) 6 % (0-3) Basophils (%) (Auto) 1 % (0-3) Neutrophils # (Auto) 7.6 x10^3/uL (1.8-7.7) Lymphocytes # (Auto) 1.0 x10^3/uL (1.0-4.8) Monocytes # (Auto) 0.5 x10^3/uL (0.0-1.1) Eosinophils # (Auto) 0.6 x10^3/uL (0.0-0.7) Basophils # (Auto) 0.1 x10^3/uL (0.0-0.2) Sodium Level 140 mmol/L (136-145) Potassium Level 4.0 mmol/L (3.5-5.1) Chloride Level 102 mmol/L (98-107) Carbon Dioxide Level 30 mmol/L (21-32) Anion Gap 8 (6-14) Blood Urea Nitrogen 15 mg/dL (8-26) Creatinine 1.4 mg/dL (0.7-1.3) Estimated GFR (Cockcroft-Gault) 52.2 BUN/Creatinine Ratio 11 (6-20) Glucose Level 144 mg/dL (70-99) Calcium Level 9.3 mg/dL (8.5-10.1) Total Bilirubin 0.7 mg/dL (0.2-1.0) Aspartate Amino Transf (AST/SGOT) 22 U/L (15-37) Alanine Aminotransferase (ALT/SGPT) 21 U/L (16-63) Alkaline Phosphatase 91 U/L (46-116) Total Protein 7.0 g/dL (6.4-8.2) Albumin 2.6 g/dL (3.4-5.0) Albumin/Globulin Ratio 0.6 (1.0-1.7) Test 02/25/19 07:51 02/25/19 11:53 02/25/19 16:57 02/25/19 20:23 Glucose (Fingerstick) 109 mg/dL (70-99) 113 mg/dL (70-99) 165 mg/dL (70-99) 164 mg/dL (70-99) Test 02/26/19 07:39 Glucose (Fingerstick) 121 mg/dL (70-99) Laboratory Tests Test 02/25/19 11:53 02/25/19 16:57 02/25/19 20:23 02/26/19 07:39 Glucose (Fingerstick) 113 mg/dL (70-99) 165 mg/dL (70-99) 164 mg/dL (70-99) 121 mg/dL (70-99) Microbiology 02/23/19 Blood Culture - Preliminary, Resulted NO GROWTH AFTER 3 DAYS Medications Current Medications Vancomycin HCl (Vanco Per Pharmacy) 1 each PRN DAILY PRN MC SEE COMMENTS Last administered on 02/23/19at 06:35; Start 02/23/19 at 04:30; Stop 02/23/19 at 11:28; Status DC Vancomycin HCl 2 gm/Sodium Chloride 500 ml @ 250 mls/hr 1X ONCE IV Last administered on 02/23/19at 04:48; Start 02/23/19 at 05:00; Stop 02/23/19 at 06:59; Status DC Acetaminophen (Tylenol) 650 mg PRN Q4HRS PRN PO FEVER; Start 02/23/19 at 06:00; Stop 02/24/19 at 05:59; Status DC Vancomycin HCl 2 gm/Sodium Chloride 500 ml @ 250 mls/hr Q12H IV ; Start 02/23/19 at 17:00; Stop 02/23/19 at 11:28; Status DC Vancomycin HCl (Vancomycin Trough Level) 1 each 1X ONCE MC ; Start 02/24/19 at 16:30; Stop 02/23/19 at 11:32; Status DC Influenza Virus Vaccine Quadrival (Afluria Quad 2019-20 (3yr Up) Syringe) 0.5 ml ONCE ONCE VAX IM Last administered on 02/23/19at 11:44; Start 02/23/19 at 09:30; Stop 02/23/19 at 09:57; Status DC Apixaban (Eliquis) 5 mg BID PO Last administered on 02/23/19at 13:00; Start at 12:00; Stop 02/23/19 at 17:26; Status DC Aspirin (Jailyn Aspirin) 325 mg DAILY PO Last administered on 02/26/19 08:40; Start 02/23/19 at 12:00 Furosemide (Lasix) 40 mg DAILY PO Last administered on 02/26/19at 08:41; Start 02/23/19 at 12:00 Insulin Glargine (Lantus Syringe) 8 unit QHS SQ Last administered on 02/25/19at 21:00; Start 02/23/19 at 21:00 Metoprolol Tartrate (Lopressor) 25 mg BID PO Last administered on 02/26/19at 08:40; Start 02/23/19 at 12:00 Potassium Chloride (Klor-Con) 20 meq DAILYWBKFT PO Last administered on 02/26/19at 08:40; Start 02/23/19 at 12:00 Linezolid (Zyvox) 600 mg BID PO Last administered on 02/26/19at 08:41; Start 02/23/19 at 13:00 Micafungin Sodium 100 mg/Dextrose 100 ml @ 100 mls/hr Q24H IV Last admini stered on 02/25/19at 14:08; Start 02/23/19 at 13:00 Piperacillin Sod/ Tazobactam Sod 3.375 gm/Sodium Chloride 50 ml @ 100 mls/hr Q6HRS IV Last administered on 02/26/19at 05:42; Start 02/23/19 at 12:00 Daptomycin 1060 mg/Sodium Chloride 50 ml @ 100 mls/hr ONCE ONCE IV ; Start 02/23/19 at 12:30; Stop 02/23/19 at 12:34; Status DC Daptomycin 670 mg/ Sodium Chloride 50 ml @ 100 mls/hr ONCE ONCE IV Last administered on 02/23/19at 13:18; Start 02/23/19 at 12:34; Stop 02/23/19 at 12:59; Status DC Lactobacillus Rhamnosus (Culturelle) 1 cap BID PO Last administered on 02/26/19at 08:40; Start 02/23/19 at 21:00 Zolpidem Tartrate (Ambien) 5 mg PRN QHS PRN PO INSOMNIA Last administered on 02/25/19at 23:07; Start 02/23/19 at 23:30 Acetaminophen (Tylenol) 500 mg PRN Q6HRS PRN PO MILD PAIN / TEMP; Start 02/26/19 at 08:30 Acetaminophen/ Codeine Phosphate (Tylenol #3) 1 tab PRN Q6HRS PRN PO MODERATE TO SEVERE PAIN; Start 02/26/19 at 08:30 Ondansetron HCl (Zofran) 4 mg PRN Q6HRS PRN IVP NAUSEA/VOMITING; Start 02/26/19 at 08:30 Insulin Human Lispro (HumaLOG) 0-9 UNITS TIDWMEALS SQ ; Start 02/26/19 at 08:00 Dextrose (Dextrose 50%-Water Syringe) 12.5 gm PRN Q15MIN PRN IV SEE COMMENTS; Start 02/26/19 at 08:30 Sodium Chloride 1,000 ml @ 100 mls/hr Q10H IV Last administered on 02/26/19at 08:45; Start 02/26/19 at 09:00 Active Scripts Active Lantus (Insulin Glargine,Hum.rec.anlog) 100 Unit/1 Ml Vial 8 Unit SQ QHS 30 Days Klor-Con M20 (Potassium Chloride) 20 Meq Tab.er.prt 20 Meq PO DAILYWBKFT Furosemide 40 Mg Tablet 40 Mg PO DAILY Metoprolol Tartrate 25 Mg Tablet 25 Mg PO BID Reported Aspirin 325 Mg Tablet 1 Tab PO DAILY Augmentin 875-125 Tablet (Amoxicillin/Potassium Clav) 1 Each Tablet 1 Tab PO BID 8 Days Vitals/I & O Vital Sign - Last 24 Hours 02/25/19 02/25/19 02/25/19 02/25/19 11:00 15:35 19:00 20:00 Temp 98.2 97.4 98.0 98.2 97.4 98.0 Pulse 85 94 91 Resp 20 24 20 B/P (MAP) 131/74 (93) 105/59 (74) 119/83 (95) Pulse Ox 95 91 93 O2 Delivery Room Air Room Air Room Air Room Air 02/25/19 02/25/19 02/26/19 02/26/19 21:40 23:00 03:00 07:35 Temp 97.8 97.6 97.3 97.8 97.6 97.3 Pulse 91 77 89 87 Resp 20 22 18 B/P (MAP) 119/83 112/58 (76) 121/58 (79) 109/73 (85) Pulse Ox 91 92 95 O2 Delivery Room Air Room Air Room Air O2 Flow Rate 2.0 02/26/19 02/26/19 08:00 08:40 Pulse 86 B/P (MAP) 109/74 O2 Delivery Room Air Intake and Output 02/25/19 02/25/19 02/26/19 15:00 23:00 07:00 Intake Total 50 ml 910 ml 500 ml Balance 50 ml 910 ml 500 ml MEGAN CHA MD Feb 26, 2019 10:05
--- NOTE | 2019-02-26 10:10 | PDOC ---
Infectious Disease Note Subjective Subjective Getting ready to shower, No F/C/S/N/V ROS ROS per HPI Vital Sign Vital Signs Vital Signs Date Time Temp Pulse Resp B/P (MAP) Pulse Ox O2 Delivery O2 Flow Rate FiO2 02/26/19 08:40 86 109/74 02/26/19 08:00 Room Air 02/26/19 07:35 97.3 18 95 97.3 02/26/19 03:00 2.0 Physical Exam PHYSICAL EXAM GENERAL: Sitting in the chair, alert, joking HEENT: Oral cavity, pharynx has some questionable dentition. NECK: Supple. LUNGS: Decreased in the bases. HEART: S1, S2. ABDOMEN: Morbidly obese and soft. No guarding or rebound. EXTREMITIES: Chronic lymphedema bilaterally. LLE ulcerations/scales, less red. He does have tinea bilaterally on lower extremities. Scratch braden RLE. NEUROLOGIC: Alert, oriented PIV Labs Lab Laboratory Tests Test 02/25/19 11:53 02/25/19 16:57 02/25/19 20:23 02/26/19 07:39 Glucose (Fingerstick) 113 mg/dL (70-99) 165 mg/dL (70-99) 164 mg/dL (70-99) 121 mg/dL (70-99) Micro Microbiology 02/23/19 Blood Culture - Preliminary, Resulted NO GROWTH AFTER 3 DAYS Objective Assessment LLE cellultis - improving Tinea Lymphedema H/o Afib RVR s/p cardioversion 01/10 DM Morbid obesity CKD Plan Plan of Care Zyvox po, Micafungin and Zosyn Probiotics B:C neg so far Elevation Will need compression eventually Attending Co-Sign The patient was seen and interviewed as well as examined at the bedside. The chart was reviewed. The case was discussed. Agree with the plan of care. RENETTA CROWLEY APRN Feb 26, 2019 10:10 POPPY BORJA MD Feb 26, 2019 11:31
[2019-02-26] MEDS: MICAFUNGIN 100 MG in IV DEXTROSE 5% 100ML 100 ML IV SCH (13:00)
[2019-02-26] MEDS: ZOLPIDEM 5 MG TABLET. PO PRN (21:24)
[2019-02-26] MEDS: INSULIN GLARGINE SYRINGE. SQ SCH (21:32)
[2019-02-27] MEDS: PIPERACILLIN/TAZOBACTAM 3.375 GM in IV NORMAL SALINE 50ML 50 ML IV SCH ×2 (00:21→05:39)
[2019-02-27 01:07] LABS: HEMOGLOBIN A1C 7.5 % (4.8-5.6)
[2019-02-27 03:01] VITALS: BP 130/55
[2019-02-27 07:00] VITALS: BP 119/65
[2019-02-27 07:08] LABS: BASO % 1 % (0-3); EOS # 0.6 x10^3/uL (0.0-0.7); EOS % 8 % (0-3); HEMATOCRIT 34.6 % (39.0-53.0); HEMOGLOBIN 11.2 g/dL (13.0-17.5); LYMPH # 1.2 x10^3/uL (1.0-4.8); LYMPH % 17 % (24-48); MEAN CORPUSCULAR HEMOGLOBIN 25 pg (25-35); MEAN CORPUSCULAR HGB CONC 32 g/dL (31-37); MEAN CORPUSCULAR VOLUME 78 fL (79-100); MONO # 0.4 x10^3/uL (0.0-1.1); MONO % 6 % (0-9); NEUT # 4.7 x10^3/uL (1.8-7.7); NEUT % 68 % (31-73); PLATELET COUNT 281 x10^3/uL (140-400); RED BLOOD COUNT 4.41 x10^6/uL (4.30-5.70); RED CELL DISTRIBUTION WIDTH 17.7 % (11.5-14.5); WHITE BLOOD COUNT 6.9 x10^3/uL (4.0-11.0)
[2019-02-27 07:24] LABS: CALCIUM 9.5 mg/dL (8.5-10.1); CREATININE 1.2 mg/dL (0.7-1.3); GFR 62.4; POTASSIUM 4.2 mmol/L (3.5-5.1)
[2019-02-27] MEDS: INSULIN LISPRO 300 UNITS/3 ML VIAL. SQ SCH ×2 (08:00→12:00)
[2019-02-27] MEDS: ASPIRIN 325 MG TABLET PO SCH (08:11)
[2019-02-27] MEDS: LACTOBACILLUS RHAMNOSUS GG 1 CAPSULE. PO SCH (08:12)
[2019-02-27] MEDS: FUROSEMIDE 40 MG TABLET. PO SCH (08:12)
[2019-02-27] MEDS: LINEZOLID 600 MG TABLET PO SCH (08:12)
[2019-02-27] MEDS: METOPROLOL TART IMMED RELEASE 25 MG TABLET. PO SCH (08:12)
[2019-02-27] MEDS: POTASSIUM CHLORIDE 20 MEQ TABLET.ER. PO SCH (08:12)
--- NOTE | 2019-02-27 09:13 | PDOC ---
PROGRESS NOTES Chief Complaint Chief Complaint A/P: left leg cellulitis sepsis no organ dysfcn prediabetes Morbid obesity bMI 61 Chronic lymphedema Onychomycosis of toenails Hx ckd chronic diastolic heart failure HX chronci a fib History of Present Illness History of Present Illness Mr Braga is a 58yo M w/ PMHx atrial fibrillation, chronic diastolic CHF, HTN, Obesity, Prediabetes who presents to ED c/o LLE swelling and blistering. On further ROS he notes orthopnea for over a year, lays at 30 degrees in bed and some exertional dyspnea as well as weight gain and lower extremity edema. He notes he has not had a PCP for a few years since not having insurance, used to be on antihypertensives and metformin. Previously had an MSSA infection at hernia mesh site. He was treated for similar in August 2018 when he also had a bout of afib. He has been seen by cardiology and ID, started on micafungin, zyvox, zosyn He has been changed to PO antibiotics, swelling improved with elevation. No CP or SOB today. Today he has a long discussion with me about him not wanting to return to his home as his roommate lets his dog defecate on the kitchen floor. PLAN: D/c home with PO cipro and doxy Vitals Vitals Vital Signs Date Time Temp Pulse Resp B/P (MAP) Pulse Ox O2 Delivery O2 Flow Rate FiO2 02/27/19 08:12 78 119/65 02/27/19 07:00 97.9 18 93 Room Air 97.9 Physical Exam Physical Exam GENERAL: Sitting in the chair, alert, joking HEENT: Oral cavity, pharynx has some questionable dentition. NECK: Supple. LUNGS: Decreased in the bases. HEART: S1, S2. ABDOMEN: Morbidly obese and soft. No guarding or rebound. EXTREMITIES: Chronic lymphedema bilaterally. LLE ulcerations/scales, less red. He does have tinea bilaterally on lower extremities. Scratch braden RLE. NEUROLOGIC: Alert, oriented PIV General: Alert, Oriented X3, Cooperative, mild distress Heart: Regular rate, Normal S1, Normal S2 Lungs: Other Abdomen: Normal bowel sounds Extremities: No clubbing, No cyanosis, Other (trace bilateral LE edema. LLE erythema and wound with intact dressing ) Skin: Other (red raw skin,left ace, lateral side, no foul smelling drainage) Labs LABS Laboratory Tests Test 02/26/19 12:12 02/26/19 16:59 02/26/19 20:36 02/27/19 05:53 Glucose (Fingerstick) 107 mg/dL (70-99) 130 mg/dL (70-99) 173 mg/dL (70-99) White Blood Count 6.9 x10^3/uL (4.0-11.0) Red Blood Count 4.41 x10^6/uL (4.30-5.70) Hemoglobin 11.2 g/dL (13.0-17.5) Hematocrit 34.6 % (39.0-53.0) Mean Corpuscular Volume 78 fL (79-100) Mean Corpuscular Hemoglobin 25 pg (25-35) Mean Corpuscular Hemoglobin Concent 32 g/dL (31-37) Red Cell Distribution Width 17.7 % (11.5-14.5) Platelet Count 281 x10^3/uL (140-400) Neutrophils (%) (Auto) 68 % (31-73) Lymphocytes (%) (Auto) 17 % (24-48) Monocytes (%) (Auto) 6 % (0-9) Eosinophils (%) (Auto) 8 % (0-3) Basophils (%) (Auto) 1 % (0-3) Neutrophils # (Auto) 4.7 x10^3/uL (1.8-7.7) Lymphocytes # (Auto) 1.2 x10^3/uL (1.0-4.8) Monocytes # (Auto) 0.4 x10^3/uL (0.0-1.1) Eosinophils # (Auto) 0.6 x10^3/uL (0.0-0.7) Basophils # (Auto) 0.0 x10^3/uL (0.0-0.2) Sodium Level 139 mmol/L (136-145) Potassium Level 4.2 mmol/L (3.5-5.1) Chloride Level 105 mmol/L (98-107) Carbon Dioxide Level 29 mmol/L (21-32) Anion Gap 5 (6-14) Blood Urea Nitrogen 12 mg/dL (8-26) Creatinine 1.2 mg/dL (0.7-1.3) Estimated GFR (Cockcroft-Gault) 62.4 Glucose Level 134 mg/dL (70-99) Calcium Level 9.5 mg/dL (8.5-10.1) Test 02/27/19 07:58 Glucose (Fingerstick) 120 mg/dL (70-99) Comment Review of Relevant I have reviewed the following items rachel (where applicable) has been applied. Labs Laboratory Tests Test 02/25/19 11:53 02/25/19 16:57 02/25/19 20:23 02/26/19 07:39 Glucose (Fingerstick) 113 mg/dL (70-99) 165 mg/dL (70-99) 164 mg/dL (70-99) 121 mg/dL (70-99) Test 02/26/19 09:04 02/26/19 12:12 02/26/19 16:59 02/26/19 20:36 Erythrocyte Sedimentation Rate 51 (0-15) Hemoglobin A1c 7.5 % (4.8-5.6) Glucose (Fingerstick) 107 mg/dL (70-99) 130 mg/dL (70-99) 173 mg/dL (70-99) Test 02/27/19 05:53 02/27/19 07:58 White Blood Count 6.9 x10^3/uL (4.0-11.0) Red Blood Count 4.41 x10^6/uL (4.30-5.70) Hemoglobin 11.2 g/dL (13.0-17.5) Hematocrit 34.6 % (39.0-53.0) Mean Corpuscular Volume 78 fL (79-100) Mean Corpuscular Hemoglobin 25 pg (25-35) Mean Corpuscular Hemoglobin Concent 32 g/dL (31-37) Red Cell Distribution Width 17.7 % (11.5-14.5) Platelet Count 281 x10^3/uL (140-400) Neutrophils (%) (Auto) 68 % (31-73) Lymphocytes (%) (Auto) 17 % (24-48) Monocytes (%) (Auto) 6 % (0-9) Eosinophils (%) (Auto) 8 % (0-3) Basophils (%) (Auto) 1 % (0-3) Neutrophils # (Auto) 4.7 x10^3/uL (1.8-7.7) Lymphocytes # (Auto) 1.2 x10^3/uL (1.0-4.8) Monocytes # (Auto) 0.4 x10^3/uL (0.0-1.1) Eosinophils # (Auto) 0.6 x10^3/uL (0.0-0.7) Basophils # (Auto) 0.0 x10^3/uL (0.0-0.2) Sodium Level 139 mmol/L (136-145) Potassium Level 4.2 mmol/L (3.5-5.1) Chloride Level 105 mmol/L (98-107) Carbon Dioxide Level 29 mmol/L (21-32) Anion Gap 5 (6-14) Blood Urea Nitrogen 12 mg/dL (8-26) Creatinine 1.2 mg/dL (0.7-1.3) Estimated GFR (Cockcroft-Gault) 62.4 Glucose Level 134 mg/dL (70-99) Calcium Level 9.5 mg/dL (8.5-10.1) Glucose (Fingerstick) 120 mg/dL (70-99) Laboratory Tests Test 02/26/19 12:12 02/26/19 16:59 02/26/19 20:36 02/27/19 05:53 Glucose (Fingerstick) 107 mg/dL (70-99) 130 mg/dL (70-99) 173 mg/dL (70-99) White Blood Count 6.9 x10^3/uL (4.0-11.0) Red Blood Count 4.41 x10^6/uL (4.30-5.70) Hemoglobin 11.2 g/dL (13.0-17.5) Hematocrit 34.6 % (39.0-53.0) Mean Corpuscular Volume 78 fL (79-100) Mean Corpuscular Hemoglobin 25 pg (25-35) Mean Corpuscular Hemoglobin Concent 32 g/dL (31-37) Red Cell Distribution Width 17.7 % (11.5-14.5) Platelet Count 281 x10^3/uL (140-400) Neutrophils (%) (Auto) 68 % (31-73) Lymphocytes (%) (Auto) 17 % (24-48) Monocytes (%) (Auto) 6 % (0-9) Eosinophils (%) (Auto) 8 % (0-3) Basophils (%) (Auto) 1 % (0-3) Neutrophils # (Auto) 4.7 x10^3/uL (1.8-7.7) Lymphocytes # (Auto) 1.2 x10^3/uL (1.0-4.8) Monocytes # (Auto) 0.4 x10^3/uL (0.0-1.1) Eosinophils # (Auto) 0.6 x10^3/uL (0.0-0.7) Basophils # (Auto) 0.0 x10^3/uL (0.0-0.2) Sodium Level 139 mmol/L (136-145) Potassium Level 4.2 mmol/L (3.5-5.1) Chloride Level 105 mmol/L (98-107) Carbon Dioxide Level 29 mmol/L (21-32) Anion Gap 5 (6-14) Blood Urea Nitrogen 12 mg/dL (8-26) Creatinine 1.2 mg/dL (0.7-1.3) Estimated GFR (Cockcroft-Gault) 62.4 Glucose Level 134 mg/dL (70-99) Calcium Level 9.5 mg/dL (8.5-10.1) Test 02/27/19 07:58 Glucose (Fingerstick) 120 mg/dL (70-99) Microbiology 02/23/19 Blood Culture - Final, Complete Medications Current Medications Vancomycin HCl (Vanco Per Pharmacy) 1 each PRN DAILY PRN MC SEE COMMENTS Last administered on 02/23/19at 06:35; Start 02/23/19 at 04:30; Stop 02/23/19 at 11:28; Status DC Vancomycin HCl 2 gm/Sodium Chloride 500 ml @ 250 mls/hr 1X ONCE IV Last administered on 02/23/19at 04:48; Start 02/23/19 at 05:00; Stop 02/23/19 at 06:59; Status DC Acetaminophen (Tylenol) 650 mg PRN Q4HRS PRN PO FEVER; Start 02/23/19 at 06:00; Stop 02/24/19 at 05:59; Status DC Vancomycin HCl 2 gm/Sodium Chloride 500 ml @ 250 mls/hr Q12H IV ; Start 02/23/19 at 17:00; Stop 02/23/19 at 11:28; Status DC Vancomycin HCl (Vancomycin Trough Level) 1 each 1X ONCE MC ; Start 02/24/19 at 16:30; Stop 02/23/19 at 11:32; Status DC Influenza Virus Vaccine Quadrival (Afluria Quad 2019-20 (3yr Up) Syringe) 0.5 ml ONCE ONCE VAX IM Last administered on 02/23/19 11:44; Start 02/23/19 at 09:30; Stop 02/23/19 at 09:57; Status DC Apixaban (Eliquis) 5 mg BID PO Last administered on 02/23/19 13:00; Start 02/23/19 at 12:00; Stop 02/23/19 at 17:26; Status DC Aspirin (Jailyn Aspirin) 325 mg DAILY PO Last administered on 02/27/19 08:11; Start 02/23/19 at 12:00 Furosemide (Lasix) 40 mg DAILY PO Last administered on 02/27/19 08:12; Start 02/23/19 at 12:00 Insulin Glargine (Lantus Syringe) 8 unit QHS SQ Last administered on 02/26/19at 21:32; Start 02/23/19 at 21:00 Metoprolol Tartrate (Lopressor) 25 mg BID PO Last administered on 02/27/19 08:12; Start 02/23/19 at 12:00 Potassium Chloride (Klor-Con) 20 meq DAILYWBKFT PO Last administered on 08:12; Start 02/23/19 at 12:00 Linezolid (Zyvox) 600 mg BID PO Last administered on 02/27/19 08:12; Start 02/23/19 at 13:00 Micafungin Sodium 100 mg/Dextrose 100 ml @ 100 mls/hr Q24H IV Last administered on 02/26/19 13:00; Start 02/23/19 at 13:00 Piperacillin Sod/ Tazobactam Sod 3.375 gm/Sodium Chloride 50 ml @ 100 mls/hr Q6HRS IV Last administered on 02/27/19 05:39; Start 02/23/19 at 12:00 Daptomycin 1060 mg/Sodium Chloride 50 ml @ 100 mls/hr ONCE ONCE IV ; Start 02/23/19 at 12:30; Stop 02/23/19 at 12:34; Status DC Daptomycin 670 mg/ Sodium Chloride 50 ml @ 100 mls/hr ONCE ONCE IV Last administered on 02/23/19at 13:18; Start 02/23/19 at 12:34; Stop 02/23/19 at 12:59; Status DC Lactobacillus Rhamnosus (Culturelle) 1 cap BID PO Last administered on 02/27/19at 08:12; Start 02/23/19 at 21:00 Zolpidem Tartrate (Ambien) 5 mg PRN QHS PRN PO INSOMNIA Last administered on 02/26/19at 21:24; Start 02/23/19 at 23:30 Acetaminophen (Tylenol) 500 mg PRN Q6HRS PRN PO MILD PAIN / TEMP; Start 02/26/19 at 08:30 Acetaminophen/ Codeine Phosphate (Tylenol #3) 1 tab PRN Q6HRS PRN PO MODERATE TO SEVERE PAIN; Start 02/26/19 at 08:30 Ondansetron HCl (Zofran) 4 mg PRN Q6HRS PRN IVP NAUSEA/VOMITING; Start 02/26/19 at 08:30 Insulin Human Lispro (HumaLOG) 0-9 UNITS TIDWMEALS SQ ; Start 02/26/19 at 08:00 Dextrose (Dextrose 50%-Water Syringe) 12.5 gm PRN Q15MIN PRN IV SEE COMMENTS; Start 02/26/19 at 08:30 Sodium Chloride 1,000 ml @ 100 mls/hr Q10H IV Last administered on 02/26/19at 08:45; Start 02/26/19 at 09:00; Stop 02/26/19 at 18:59; Status DC Active Scripts Active Lantus (Insulin Glargine,Hum.rec.anlog) 100 Unit/1 Ml Vial 8 Unit SQ QHS 30 Days Klor-Con M20 (Potassium Chloride) 20 Meq Tab.er.prt 20 Meq PO DAILYWBKFT Furosemide 40 Mg Tablet 40 Mg PO DAILY Metoprolol Tartrate 25 Mg Tablet 25 Mg PO BID Reported Aspirin 325 Mg Tablet 1 Tab PO DAILY Augmentin 875-125 Tablet (Amoxicillin/Potassium Clav) 1 Each Tablet 1 Tab PO BID 8 Days Vitals/I & O Vital Sign - Last 24 Hours 02/26/19 02/26/19 02/26/19 02/26/19 15:48 19:00 19:45 21:24 Temp 97.6 97.7 97.6 97.7 Pulse 72 73 73 Resp 18 20 B/P (MAP) 103/62 (76) 108/56 (73) 108/56 Pulse Ox 92 91 O2 Delivery Room Air Room Air Room Air 02/26/19 02/27/19 02/27/19 02/27/19 23:01 03:01 07:00 08:12 Temp 97.9 98.0 97.9 97.9 98.0 97.9 Pulse 87 86 78 78 Resp 20 20 18 B/P (MAP) 117/70 (86) 130/55 (80) 119/65 (83) 119/65 Pulse Ox 91 91 93 O2 Delivery Room Air Room Air Room Air Intake and Output 02/26/19 02/26/19 02/27/19 14:59 22:59 06:59 Intake Total 1600 ml Balance 1600 ml JAK FITZPATRICK MD Feb 27, 2019 09:13
--- NOTE | 2019-02-27 09:36 | PDOC ---
Infectious Disease Note Subjective Subjective feeling good ROS ROS no n/v/d/sob Vital Sign Vital Signs Vital Signs Date Time Temp Pulse Resp B/P (MAP) Pulse Ox O2 Delivery O2 Flow Rate FiO2 02/27/19 08:12 78 119/65 02/27/19 07:00 97.9 18 93 Room Air 97.9 Physical Exam PHYSICAL EXAM GENERAL: Sitting in the chair, alert, joking HEENT: Oral cavity, pharynx has some questionable dentition. NECK: Supple. LUNGS: Decreased in the bases. HEART: S1, S2. ABDOMEN: Morbidly obese and soft. No guarding or rebound. EXTREMITIES: Chronic lymphedema bilaterally. LLE ulcerations/scales, less red. He does have tinea bilaterally on lower extremities. Scratch braden RLE. NEUROLOGIC: Alert, oriented PIV Labs Lab Laboratory Tests Test 02/26/19 12:12 02/26/19 16:59 02/26/19 20:36 02/27/19 05:53 Glucose (Fingerstick) 107 mg/dL (70-99) 130 mg/dL (70-99) 173 mg/dL (70-99) White Blood Count 6.9 x10^3/uL (4.0-11.0) Red Blood Count 4.41 x10^6/uL (4.30-5.70) Hemoglobin 11.2 g/dL (13.0-17.5) Hematocrit 34.6 % (39.0-53.0) Mean Corpuscular Volume 78 fL (79-100) Mean Corpuscular Hemoglobin 25 pg (25-35) Mean Corpuscular Hemoglobin Concent 32 g/dL (31-37) Red Cell Distribution Width 17.7 % (11.5-14.5) Platelet Count 281 x10^3/uL (140-400) Neutrophils (%) (Auto) 68 % (31-73) Lymphocytes (%) (Auto) 17 % (24-48) Monocytes (%) (Auto) 6 % (0-9) Eosinophils (%) (Auto) 8 % (0-3) Basophils (%) (Auto) 1 % (0-3) Neutrophils # (Auto) 4.7 x10^3/uL (1.8-7.7) Lymphocytes # (Auto) 1.2 x10^3/uL (1.0-4.8) Monocytes # (Auto) 0.4 x10^3/uL (0.0-1.1) Eosinophils # (Auto) 0.6 x10^3/uL (0.0-0.7) Basophils # (Auto) 0.0 x10^3/uL (0.0-0.2) Sodium Level 139 mmol/L (136-145) Potassium Level 4.2 mmol/L (3.5-5.1) Chloride Level 105 mmol/L (98-107) Carbon Dioxide Level 29 mmol/L (21-32) Anion Gap 5 (6-14) Blood Urea Nitrogen 12 mg/dL (8-26) Creatinine 1.2 mg/dL (0.7-1.3) Estimated GFR (Cockcroft-Gault) 62.4 Glucose Level 134 mg/dL (70-99) Calcium Level 9.5 mg/dL (8.5-10.1) Test 02/27/19 07:58 Glucose (Fingerstick) 120 mg/dL (70-99) Micro Microbiology 02/23/19 Blood Culture - Final, Complete Objective Assessment LLE cellultis - improving Tinea Lymphedema H/o Afib RVR s/p cardioversion 01/10 DM Morbid obesity CKD Plan Plan of Care change Zyvox po, Micafungin and Zosyn to po cipro and doxy Probiotics B:C neg so far Elevation Will need compression eventually POPPY BORJA MD Feb 27, 2019 09:36
[2019-02-27 11:00] VITALS: BP 109/72
[2019-02-27] MEDS ORDERED: CIPR250T30 PO (11:58)
[2019-02-27] MEDS ORDERED: METO25TA4 PO (11:58)
[2019-02-27] MEDS ORDERED: DOXY100T PO (11:58)
[2019-02-27] MEDS ORDERED: ASPI325T8 PO (11:58)
[2019-02-27] MEDS ORDERED: ACET1TAB33 PO (11:58)
[2019-02-27] MEDS ORDERED: CIPROFLOXACIN HCL 250 MG TABLET. PO SCH (12:00)
[2019-02-27] MEDS ORDERED: METF500T16 PO (12:01)
[2019-02-27] MEDS ORDERED: DOXYCYCLINE HYCLATE 100 MG TABLET PO SCH (13:00)
--- NOTE | 2019-02-27 14:18 | NUR ---
Discharge Note: Patient was discharged home with self care. Patients IV was discontinued without any complications. Patient was given resources for medications and clinics. Patient was given discharge sumamry/instructions, follow-ups, prescriptions and educational material. All patients questions were answered. Patient was taken down tot he main entrance via wheelchair with all personal belongings accompanied by CHANA Dias, where his ride was here to take him home.
--- NOTE | 2019-02-27 20:55 | PDOC3 ---
Discharge Summary Visit Information Date of Admission: Feb 23, 2019 Date of Discharge: Feb 27, 2019 Admitting Diagnosis: Left leg cellulitis Final Diagnosis LLE cellulitis Brief Hospital Course Allergies Allergies Coded Allergies Type Severity Reaction Last Updated Verified No Known Drug Allergies 01/08/19 No Vital Signs Vital Signs Date Time Temp Pulse Resp B/P (MAP) Pulse Ox O2 Delivery O2 Flow Rate FiO2 02/27/19 11:00 97.8 93 19 109/72 (84) 92 Room Air 97.8 Lab Results Laboratory Tests Test 02/26/19 07:39 02/26/19 09:04 02/26/19 12:12 02/26/19 16:59 Glucose (Fingerstick) 121 mg/dL (70-99) 107 mg/dL (70-99) 130 mg/dL (70-99) Erythrocyte Sedimentation Rate 51 (0-15) Hemoglobin A1c 7.5 % (4.8-5.6) Test 02/26/19 20:36 02/27/19 05:53 02/27/19 07:58 02/27/19 12:05 Glucose (Fingerstick) 173 mg/dL (70-99) 120 mg/dL (70-99) 111 mg/dL (70-99) White Blood Count 6.9 x10^3/uL (4.0-11.0) Red Blood Count 4.41 x10^6/uL (4.30-5.70) Hemoglobin 11.2 g/dL (13.0-17.5) Hematocrit 34.6 % (39.0-53.0) Mean Corpuscular Volume 78 fL (79-100) Mean Corpuscular Hemoglobin 25 pg (25-35) Mean Corpuscular Hemoglobin Concent 32 g/dL (31-37) Red Cell Distribution Width 17.7 % (11.5-14.5) Platelet Count 281 x10^3/uL (140-400) Neutrophils (%) (Auto) 68 % (31-73) Lymphocytes (%) (Auto) 17 % (24-48) Monocytes (%) (Auto) 6 % (0-9) Eosinophils (%) (Auto) 8 % (0-3) Basophils (%) (Auto) 1 % (0-3) Neutrophils # (Auto) 4.7 x10^3/uL (1.8-7.7) Lymphocytes # (Auto) 1.2 x10^3/uL (1.0-4.8) Monocytes # (Auto) 0.4 x10^3/uL (0.0-1.1) Eosinophils # (Auto) 0.6 x10^3/uL (0.0-0.7) Basophils # (Auto) 0.0 x10^3/uL (0.0-0.2) Sodium Level 139 mmol/L (136-145) Potassium Level 4.2 mmol/L (3.5-5.1) Chloride Level 105 mmol/L (98-107) Carbon Dioxide Level 29 mmol/L (21-32) Anion Gap 5 (6-14) Blood Urea Nitrogen 12 mg/dL (8-26) Creatinine 1.2 mg/dL (0.7-1.3) Estimated GFR (Cockcroft-Gault) 62.4 Glucose Level 134 mg/dL (70-99) Calcium Level 9.5 mg/dL (8.5-10.1) Laboratory Tests Test 02/27/19 05:53 02/27/19 07:58 02/27/19 12:05 White Blood Count 6.9 x10^3/uL (4.0-11.0) Red Blood Count 4.41 x10^6/uL (4.30-5.70) Hemoglobin 11.2 g/dL (13.0-17.5) Hematocrit 34.6 % (39.0-53.0) Mean Corpuscular Volume 78 fL (79-100) Mean Corpuscular Hemoglobin 25 pg (25-35) Mean Corpuscular Hemoglobin Concent 32 g/dL (31-37) Red Cell Distribution Width 17.7 % (11.5-14.5) Platelet Count 281 x10^3/uL (140-400) Neutrophils (%) (Auto) 68 % (31-73) Lymphocytes (%) (Auto) 17 % (24-48) Monocytes (%) (Auto) 6 % (0-9) Eosinophils (%) (Auto) 8 % (0-3) Basophils (%) (Auto) 1 % (0-3) Neutrophils # (Auto) 4.7 x10^3/uL (1.8-7.7) Lymphocytes # (Auto) 1.2 x10^3/uL (1.0-4.8) Monocytes # (Auto) 0.4 x10^3/uL (0.0-1.1) Eosinophils # (Auto) 0.6 x10^3/uL (0.0-0.7) Basophils # (Auto) 0.0 x10^3/uL (0.0-0.2) Sodium Level 139 mmol/L (136-145) Potassium Level 4.2 mmol/L (3.5-5.1) Chloride Level 105 mmol/L (98-107) Carbon Dioxide Level 29 mmol/L (21-32) Anion Gap 5 (6-14) Blood Urea Nitrogen 12 mg/dL (8-26) Creatinine 1.2 mg/dL (0.7-1.3) Estimated GFR (Cockcroft-Gault) 62.4 Glucose Level 134 mg/dL (70-99) Calcium Level 9.5 mg/dL (8.5-10.1) Glucose (Fingerstick) 120 mg/dL (70-99) 111 mg/dL (70-99) Brief Hospital Course Mr Braga is a 58yo M w/ PMHx atrial fibrillation, chronic diastolic CHF, HTN, Obesity, Prediabetes who presents to ED c/o LLE swelling and blistering. On further ROS he notes orthopnea for over a year, lays at 30 degrees in bed and some exertional dyspnea as well as weight gain and lower extremity edema. He notes he has not had a PCP for a few years since not having insurance, used to be on antihypertensives and metformin. Previously had an MSSA infection at hernia mesh site. He was treated for similar in August 2018 when he also had a bout of afib. He has been seen by cardiology and ID, started on micafungin, zyvox, zosyn He has been changed to PO antibiotics, swelling improved with elevation. No CP or SOB today. Today he has a long discussion with me about him not wanting to return to his home as his roommate lets his dog defecate on the kitchen floor. A/P: left leg cellulitis sepsis no organ dysfcn prediabetes Morbid obesity bMI 59 Chronic lymphedema Onychomycosis of toenails Hx ckd chronic diastolic heart failure HX chronic a fib PLAN: D/c home with PO cipro and doxy Greater than 30 minutes spent on d/c Discharge Information Condition at Discharge: Improved Follow Up: Weeks (2) Disposition/Orders: D/C to Home Scheduled Aspirin (Aspirin) 325 Mg Tablet, 1 TAB PO DAILY for cardiac for 90 Days, #90 Ref 3 Prescribed by: JAK FITZPATRICK MD on 02/27/19 1158 Ciprofloxacin Hcl (Cipro) 250 Mg Tablet, 500 MG PO BID for cellulitis for 10 Days, #40 Can sub with #20 of 500mg cipro tabs Prescribed by: JAK FITZPATRICK MD on 02/27/19 1158 Doxycycline Hyclate (Doxycycline Hyclate) 100 Mg Tablet, 100 MG PO BID for Ashley lulitis for 10 Days, #20 Prescribed by: JAK FITZPATRICK MD on 02/27/19 1158 Furosemide (Furosemide) 40 Mg Tablet, 40 MG PO DAILY for a fibm chf, #90 Prescribed by: MEGAN CHA on 01/13/19852 Last Action: Continued on 02/23/191113 by LISA COLEY MD Insulin Glargine,Hum.rec.anlog (Lantus) 100 Unit/1 Ml Vial, 8 UNIT SQ QHS for dm for 30 Days Prescribed by: MEGAN CHA on 01/13/19852 Last Action: Continued on 02/23/191113 by LISA COLEY MD Metformin Hcl (Metformin Hcl) 500 Mg Tablet, 500 MG PO BIDWMEALS for ANTI- DIABETIC for 30 Days, #60 Ref 1 Prescribed by: JAK FITZPATRICK MD on 02/27/19 1201 Metoprolol Tartrate (Metoprolol Tartrate) 25 Mg Tablet, 25 MG PO BID for htn, a fib for 90 Days, #180 Ref 3 Prescribed by: JAK FITZPATRICK MD on 02/27/19 1158 Potassium Chloride (Klor-Con M20) 20 Meq Tab.er.prt, 20 MEQ PO DAILYWBKFT for low K, while on lasix 40 po, #90 Prescribed by: MEGAN CHA on 01/13/19852 Last Action: Continued on 02/23/191113 by LISA COLEY MD Scheduled PRN Acetaminophen With Codeine (Acetaminophen-Cod #3 Tablet) 1 Each Tablet, 1 TAB PO PRN Q6HRS PRN for MODERATE TO SEVERE PAIN for 6 Days, #15 Prescribed by: JAK FITZPATRICK MD on 02/27/19 1158 Discontinued Medications Amoxicillin/Potassium Clav (Augmentin 875-125 Tablet) 1 Each Tablet, 1 TAB PO BID for cellulitis for 8 Days, #16 Ref 0 (Reported) Entered as Reported by: KAILEE MEDLEY on 01/13/19 1021 Last Action: HELD on 02/23/19 1114 by LISA COLEY MD Apixaban (Eliquis) 5 Mg Tablet, 10 MG PO BID for fib post cardioversion for 30 Days, #120 Discontinued Reason: DC, ON ASA Prescribed by: MEGAN CHA on 01/13/19852 Last Action: Discontinued on 02/24/191501 by TOREY SILVER RPH Apixaban (Eliquis) 5 Mg Tablet, 5 MG PO BID for a fib post cardioversion, #120 Discontinued Reason: DC, ON ASA Prescribed by: MEGAN CHA on 01/13/19852 Last Action: Discontinued on 02/24/191501 by PATO IRELAND CHRISTOPHER S MD Feb 27, 2019 20:55
== END 2019-02-27 14:21 | disposition home or self-care (01) | DRG 872 ==
LOC: ER 04:10 → 5 SOUTH 05:33
PROVIDERS: ADMIT Internal Medicine; ATTEND Internal Medicine
DX: A41.9 Sepsis, unspecified organism (principal); I13.0 Hypertensive heart and chronic kidney disease with heart failure and stage 1 through stage 4 chronic kidney disease, or unspecified chronic kidney disease; I48.20 Chronic atrial fibrillation, unspecified; I50.32 Chronic diastolic (congestive) heart failure; L03.116 Cellulitis of left lower limb; Z68.43 Body mass index [BMI] 50.0-59.9, adult; B35.1 Tinea unguium; E11.22 Type 2 diabetes mellitus with diabetic chronic kidney disease; E11.65 Type 2 diabetes mellitus with hyperglycemia; E66.01 Morbid (severe) obesity due to excess calories; I89.0 Lymphedema, not elsewhere classified; N18.9 Chronic kidney disease, unspecified; Z82.49 Family history of ischemic heart disease and other diseases of the circulatory system
CPT/HCPCS: 36415; 80048; 80053; 82962; 83036; 83880; 85025; 85651; 87040; 87205; 90471; 90686; 93005; 96365; 96366; J0878; J1815; J2248; J2543; J3370; J7030; J7040; 99285-25; G0378

== ENCOUNTER 2019-03-08 04:25 | Inpatient (IN) | payer SELFPAY ==
[2019-03-08] VITALS (10 sets, daily range): BP systolic 102–180; BP diastolic 50–85
[~2019-03-08] VITALS: Ht 172.7 cm; Wt 181.0 kg
[~2019-03-08 04:25] MED LIST changes: +ACET1TAB33 PO; +CIPR250T30 PO; +DOXY100T PO; +METF500T16 PO
[2019-03-08] MEDS ORDERED: FAMOTIDINE 20 MG/2 ML VIAL ONE (04:34)
[2019-03-08] MEDS ORDERED: methylPREDNISolone SOD SUCC PF 125 MG/2 ML VIAL. ONE (04:34)
--- NOTE | 2019-03-08 05:27 | PHYS DOC ---
Past Medical History Past Medical History: A-Fib, CHF, Diabetes-Type II, Hypertension Past Surgical History: Other Additional Past Surgical Histo: HERNIA, R ARM TENDON REPAIR Alcohol Use: None Drug Use: None Adult General Chief Complaint Chief Complaint: ALLERGIC REACTION HPI HPI Patient is a 59 year old patient who presents to the due to chief complaint of lip swelling, tongue swelling. Patient states that he woke up at 3:00 this mo rning and took 2 pills after which she started having the symptoms. Patient denies shortness of breath. Patient denies itching. Patient states that he hasn't taken his medications for a long time. Patient tried to the ED by EMS. Review of Systems Review of Systems Constitutional: Denies fever or chills [] HENT: Complains of lip swelling, tongue swelling Respiratory: Denies cough or shortness of breath [] Cardiovascular: No additional information not addressed in HPI [] GI: Denies abdominal pain, nausea, vomiting, bloody stools or diarrhea [] : Denies dysuria or hematuria [] Musculoskeletal: Denies back pain or joint pain [] All other systems were reviewed and found to be within normal limits, except as documented in this note. Current Medications Current Medications Current Medications Medications (Trade) Dose Ordered Sig/Masood Start Time Stop Time Status Last Admin Dose Admin Famotidine (Pepcid Vial) 20 mg STK-MED ONCE 03/08/19 04:34 03/08/19 04:34 DC Methylprednisolone Sodium Succinate (SOLU-Medrol 125MG VIAL) 125 mg STK-MED ONCE 03/08/19 04:34 03/08/19 04:34 DC Allergies Allergies Allergies Coded Allergies Type Severity Reaction Last Updated Verified No Known Drug Allergies 01/08/19 No Physical Exam Physical Exam Constitutional: Well developed, well nourished, non-toxic appearance. [] HENT: Normocephalic, atraumatic. Mild left swelling and tongue swelling. Airway intact Eyes: PERRLA, EOMI Neck: Normal range of motion, no tenderness, supple Cardiovascular:Heart rate regular rhythm, no murmur [] Lungs & Thorax: Rhonchi bilaterally, no wheezing Abdomen: Obese, no tenderness Extremities: No tenderness, bilateral lower extremity edema Neurologic: Alert and oriented X 3 Current Patient Data Vital Signs Vital Signs Date Time Temp Pulse Resp B/P (MAP) Pulse Ox O2 Delivery O2 Flow Rate FiO2 03/08/19 04:25 97.4 56 18 123/78 (93) 96 Room Air 97.4 EKG EKG [] Radiology/Procedures Radiology/Procedures [] Course & Med Decision Making Course & Med Decision Making Patient was given oral Benadryl when he went to [facility] pharmacy. Following to the ER there is no palpitations. The patient is given 125 mg Solu-Medrol IV, Pepcid 20 mg IV. Patient is speaking in sentences. Patient is not sure what medication he takes in the mornings. I'm assuming this might be an ELIAN inhibitor secondary to his reaction. Patient states that he did not eat anything this morning a lot of causes reaction. Patient denies itching. Patient has no palpitations during his stay in the ER. Patient will be admitted to the ICU for further evaluation and treatment. I discussed this case with hospitalist service. Discussed plan of care patient as well. Dragon Disclaimer Dragon Disclaimer This electronic medical record was generated, in whole or in part, using a voice recognition dictation system. Departure Departure Impression: Primary Impression: Angioedema Disposition: ADMITTED INPATIENT Condition: CRITICAL Referrals: NO PCP (PCP) JESSICA AVILA DO Mar 08, 2019 05:26
--- NOTE | 2019-03-08 09:44 | PDOC1 ---
History and Physical Date of Admission Date of Admission DATE: 03/08/19 TIME: 09:43 Identification/Chief Complaint Chief Complaint admitted to icu from er , 59 year old patient who presents to the due to chief complaint of lip swelling, tongue swelling. Patient states that he woke up at 3:00 and took 2 pills after which he started having symptoms. ON PO CIPROOLGA HELD THESE TODAY Past Medical History Past Medical History Past Medical History Past Medical History Past Medical History: A-Fib, CHF, Diabetes-Type II, Hypertension Past Surgical History: Other Additional Past Surgical Histo: HERNIA, R ARM TENDON REPAIR Alcohol Use: None Drug Use: None fhx obesity Cardiovascular: CHF, HTN Pulmonary: No pertinent hx GI: No pertinent hx Heme/Onc: Anemia NOS Hepatobiliary: No pertinent hx Psych: No pertinent hx Rheumatologic: No pertinent hx Infectious disease: No pertinent hx Renal/: Chronic renal insuff Endocrine: No pertinent hx Past Surgical History Past Surgical History: Hernia Repair Family History Family History: Hypertension Social History Smoke: <1 pack per day ALCOHOL: none Drugs: None Current Problem List Problem List Problems Medical Problems: (1) Angioedema Status: Acute Current Medications Current Medications Current Medications Famotidine (Pepcid Vial) 20 mg STK-MED ONCE .ROUTE ; Start 03/08/19 at 04:34; Stop 03/08/19 at 04:34; Status DC Methylprednisolone Sodium Succinate (SOLU-Medrol 125MG VIAL) 125 mg STK-MED ONCE .ROUTE ; Start 03/08/19 at 04:34; Stop 03/08/19 at 04:34; Status DC Active Scripts Active Metformin Hcl 500 Mg Tablet 500 Mg PO BIDWMEALS 30 Days Acetaminophen-Cod #3 Tablet (Acetaminophen/Codeine Phosphate) 1 Each Tablet 1 Tab PO PRN Q6HRS PRN 6 Days Doxycycline Hyclate 100 Mg Tablet 100 Mg PO BID 10 Days Cipro (Ciprofloxacin Hcl) 250 Mg Tablet 500 Mg PO BID 10 Days Can sub with #20 of 500mg cipro tabs Aspirin 325 Mg Tablet 1 Tab PO DAILY 90 Days Metoprolol Tartrate 25 Mg Tablet 25 Mg PO BID 90 Days Lantus (Insulin Glargine,Hum.rec.anlog) 100 Unit/1 Ml Vial 8 Unit SQ QHS 30 Days Klor-Con M20 (Potassium Chloride) 20 Meq Tab.er.prt 20 Meq PO DAILYWBKFT Furosemide 40 Mg Tablet 40 Mg PO DAILY Allergies Allergies: Coded Allergies: No Known Drug Allergies (Unverified , 01/08/19) ROS Review of System Review of Systems Review of Systems Constitutional: Denies fever or chills [] HENT: Complains of lip swelling, tongue swelling Respiratory: Denies cough or shortness of breath [] Cardiovascular: No additional information not addressed in HPI [] GI: Denies abdominal pain, nausea, vomiting, bloody stools or diarrhea [] : Denies dysuria or hematuria [] Musculoskeletal: Denies back pain or joint pain [] 14 PT systems were reviewed and found to be within normal limits, except as documented General: YES: Fatigue Hematological and Lymphatic: No: Bleeding Problems, Blood Clots, Blood Transfusions, Brusing, Night Sweats, Pallor, Swollen Lymph Nodes, Other Musculoskeletal: Yes Gait Disturbance, Yes Joint Stiffness Skin: Yes Skin Lesion Changes Physical Exam Physical Exam Physical Exam Physical Exam Constitutional: Well developed, well nourished, non-toxic appearance. [] HENT: Normocephalic, atraumatic. Mild left swelling and tongue swelling. Airway intact Eyes: PERRLA, EOMI Neck: Normal range of motion, no tenderness, supple Cardiovascular:Heart rate regular rhythm, no murmur [] Lungs & Thorax: Rhonchi bilaterally, no wheezing Abdomen: Obese, no tenderness Extremities: No tenderness, bilateral lower extremity edema Neurologic: Alert and oriented X 3 General: Alert, Oriented X3, Cooperative, No acute distress Heart: no thrills Breasts: Not examined Abdomen: Normal bowel sounds, Soft Rectal Exam: not examined Neuro: Normal speech, Cranial nerves 3-12 NL Psych/Mental Status: Mental status NL, Mood NL Vitals Vitals Vital Signs Date Time Temp Pulse Resp B/P (MAP) Pulse Ox O2 Delivery O2 Flow Rate FiO2 03/08/19 08:00 94 21 115/69 (84) 98 Nasal Cannula 3.0 03/08/19 07:00 99.0 99.0 Images Images Examination: Ultrasound left lower extremity arterial system HISTORY: Lower extremity redness, edema COMPARISON: None available TECHNIQUE: Grayscale, color Doppler 2-D, spectral waveform analysis of the left lower extremity arterial system performed. FINDINGS: The velocity in the : Common femoral artery 133 cm/s. Deep femoral artery 37 cm/s. Proximal SFA 107 cm/s. Mid SFA 96 cm/s. Distal SFA 123 cm/s. Popliteal artery 83 cm/s. Proximal REGISTERED PHARMACY TECHNICIAN 77 cm/s Distal REGISTERED PHARMACY TECHNICIAN 45 cm/s. Peroneal artery 57 cm/s Anterior tibialis artery 101 cm/s. Dorsalis pedis artery 62 cm/s. Triphasic waveforms identified throughout the left lower extremity except the proximal REGISTERED PHARMACY TECHNICIAN, distal REGISTERED PHARMACY TECHNICIAN and peroneal artery demonstrates biphasic waveform.. IMPRESSION: No evidence of hemodynamically significant stenosis. Electronically signed by: Roque Sanchez MD (01/08/2019 10:06 AM) [facility] VTE Prophylaxis Ordered VTE Prophylaxis Devices: No VTE Pharmacological Prophylaxi: Yes Assessment/Plan Assessment/Plan Impression: Angioedema MORBID OBESITY Left leg cellulitis prediabetes Morbid obesity bMI 61 Chronic lymphedema Onychomycosis of toenails Hx ckd chronic diastolic heart failure HX chronic a fib ADMITTED ICU BED IV STEROIDS , TAPER IV PEPSID BID id consult cbc comp hold cipro, doxy dvt prophylaxis WOUND CARE CONSULT ACCUCHECKS 37 min cc time LISA COLEY MD Mar 08, 2019 09:44
--- NOTE | 2019-03-08 10:58 | NUR ---
SS following for discharge planning. SS reviewed pt chart. Pt is self pay pt. HCFS following for self pay status. Pt is from home and is currently requiring oxygen. SS will continue to follow for discharge planning.
--- NOTE | 2019-03-08 11:30 | NUR ---
Wound Care: StII PU to coccyx, cleansed, pictured and measured. Applied barrier cream. Weeping VLU to LLE, pictured and measured, dressed with xeroform, ABDs, kerlix. No other open areas noted on head to toe inspection. ICU bed, although sitting up in recliner. Educated on PU prevention. Ordered Roho from [facility]. Plan to follow up 03/15/19
[2019-03-08 12:17] LABS: BASO # 0.1 x10^3/uL (0.0-0.2); BASO % 1 % (0-3); EOS % 0 % (0-3); HEMATOCRIT 40.7 % (39.0-53.0); HEMOGLOBIN 12.8 g/dL (13.0-17.5); LYMPH # 0.8 x10^3/uL (1.0-4.8); LYMPH % 5 % (24-48); MEAN CORPUSCULAR HEMOGLOBIN 25 pg (25-35); MEAN CORPUSCULAR HGB CONC 32 g/dL (31-37); MEAN CORPUSCULAR VOLUME 79 fL (79-100); MONO # 0.2 x10^3/uL (0.0-1.1); MONO % 1 % (0-9); NEUT % 93 % (31-73); PLATELET COUNT 294 x10^3/uL (140-400); RED BLOOD COUNT 5.13 x10^6/uL (4.30-5.70); RED CELL DISTRIBUTION WIDTH 17.6 % (11.5-14.5); WHITE BLOOD COUNT 16.1 x10^3/uL (4.0-11.0)
[2019-03-08] MEDS ORDERED: LORazepam 0.5 MG TABLET PO PRN (12:30)
[2019-03-08] MEDS ORDERED: 0.9 % SODIUM CHLORIDE 10 ML DISP.SYRIN. IV PRN (12:30)
[2019-03-08] MEDS ORDERED: guaiFENesin ORAL 200 MG/10 ML LIQUID. PO PRN (12:30)
[2019-03-08] MEDS ORDERED: cloNIDine HCL 0.1 MG TABLET PO PRN (12:30)
[2019-03-08] MEDS ORDERED: DEXTROSE 50% 25 GM / 50ML DISP.SYRIN. IV PRN (12:30)
[2019-03-08] MEDS ORDERED: ACETAMINOPHEN 650 MG/20.3 ML SOLUTION. GT PRN (12:30)
[2019-03-08] MEDS ORDERED: ALBUTEROL SULFATE 2.5 MG/3 ML NEBU. NEB PRN (12:30)
[2019-03-08] MEDS ORDERED: DOCUSATE SODIUM 100 MG CAPSULE. PO PRN (12:30)
[2019-03-08] MEDS ORDERED: ONDANSETRON PF 4 MG/2 ML VIAL. IV PRN (12:30)
--- NOTE | 2019-03-08 12:42 | RAD ---
EXAM: CHEST ONE VIEW. HISTORY: Angioedema. COMPARISON: 01/08/2019. FINDINGS: A frontal view of the chest is obtained. The projection is lordotic. Opacity in the left base may represent an epicardial fat pad. There is no pneumothorax or clear pleural effusion. The heart is at least mildly enlarged. There are chronic left rib fractures. IMPRESSION: 1. Left basilar opacity is most likely secondary to an epicardial fat pad in the setting of a lordotic projection. 2. At least mild cardiomegaly. Electronically signed by: Ondina Mueller MD (03/08/2019 12:39 PM) [facility]
[2019-03-08] MEDS: methylPREDNISolone SOD SUCC PF 125 MG/2 ML VIAL. IV SCH ×2 (12:48→20:53)
[2019-03-08 12:53] LABS: ALBUMIN 3.1 g/dL (3.4-5.0); ALBUMIN/GLOBULIN RATIO 0.7 (1.0-1.7); CALCIUM 9.2 mg/dL (8.5-10.1); CREATININE 1.3 mg/dL (0.7-1.3); GFR 56.9; POTASSIUM 4.5 mmol/L (3.5-5.1); TOTAL BILIRUBIN 0.4 mg/dL (0.2-1.0); TOTAL PROTEIN 7.6 g/dL (6.4-8.2)
[2019-03-08] MEDS: INSULIN LISPRO 300 UNITS/3 ML VIAL. SQ SCH ×2 (12:53→17:18)
[2019-03-08] MEDS: FAMOTIDINE 20 MG/2 ML VIAL IVP SCH ×2 (12:54→20:48)
[2019-03-08] MEDS: ASPIRIN 325 MG TABLET PO SCH (13:00)
[2019-03-08] MEDS: METOPROLOL TART IMMED RELEASE 25 MG TABLET. PO SCH ×2 (13:00→20:53)
[2019-03-08] MEDS: FUROSEMIDE 40 MG TABLET. PO SCH (13:00)
[2019-03-08 13:20] LABS: % BANDS 10 % (0-9); % BASOS 1 % (0-3); % LYMPHS 6 % (24-48); % MONOS 1 % (0-10); % MYELOS 1 % (0-0); % SEGS 81 % (35-66); PLT ESTIMATE ADEQUATE (ADEQUATE)
[2019-03-08] MEDS: metFORMIN 500 MG TABLET PO SCH (17:18)
[2019-03-08] MEDS ORDERED: INSULIN GLARGINE SYRINGE. SQ SCH (21:00)
[2019-03-08] MEDS ORDERED: INSULIN LISPRO 300 UNITS/3 ML VIAL. SQ ONE (22:30)
[2019-03-09] VITALS: BP 118/79
[2019-03-09] MEDS ORDERED: ZOLPIDEM 5 MG TABLET. PO PRN
[2019-03-09 03:30] VITALS: BP 119/57
[2019-03-09] MEDS: methylPREDNISolone SOD SUCC PF 125 MG/2 ML VIAL. IV SCH (06:17)
[2019-03-09 07:36] VITALS: BP 103/74
[2019-03-09] MEDS ORDERED: POTASSIUM CHLORIDE 20 MEQ TABLET.ER. PO SCH (08:00)
[2019-03-09] MEDS ORDERED: methylPREDNISolone SOD SUCC PF 125 MG/2 ML VIAL. IV SCH (08:00)
[2019-03-09] MEDS: FUROSEMIDE 40 MG TABLET. PO SCH (08:43)
[2019-03-09] MEDS: metFORMIN 500 MG TABLET PO SCH (08:43)
[2019-03-09] MEDS: ASPIRIN 325 MG TABLET PO SCH (08:44)
[2019-03-09] MEDS: METOPROLOL TART IMMED RELEASE 25 MG TABLET. PO SCH (08:44)
[2019-03-09] MEDS ORDERED: ENOXAPARIN 40 MG/0.4 ML SYRINGE. SQ SCH (09:00)
[2019-03-09] MEDS ORDERED: ALBU2.5V8 NEB (09:06)
--- NOTE | 2019-03-09 09:18 | PDOC3 ---
Discharge Summary Visit Information Date of Admission: Mar 08, 2019 Date of Discharge: Mar 09, 2019 Admitting Diagnosis Comment: angioedema HTN, obesity etc Coccyx wound, NON Infceted Chronic edema with post inflamm hyperpigmenttation Final Diagnosis Problems Medical Problems: (1) Angioedema Status: Acute Brief Hospital Course Allergies Allergies Coded Allergies Type Severity Reaction Last Updated Verified ciprofloxacin Allergy Severe 03/09/19 Yes doxycycline Allergy Severe 03/09/19 Yes Vital Signs Vital Signs Date Time Temp Pulse Resp B/P (MAP) Pulse Ox O2 Delivery O2 Flow Rate FiO2 03/09/19 08:44 87 103/74 03/09/19 07:36 98.6 20 92 Room Air 98.6 03/08/19 12:00 3.0 Lab Results Laboratory Tests Test 03/08/19 12:10 03/08/19 12:51 03/08/19 17:16 03/08/19 20:49 White Blood Count 16.1 x10^3/uL (4.0-11.0) Red Blood Count 5.13 x10^6/uL (4.30-5.70) Hemoglobin 12.8 g/dL (13.0-17.5) Hematocrit 40.7 % (39.0-53.0) Mean Corpuscular Volume 79 fL (79-100) Mean Corpuscular Hemoglobin 25 pg (25-35) Mean Corpuscular Hemoglobin Concent 32 g/dL (31-37) Red Cell Distribution Width 17.6 % (11.5-14.5) Platelet Count 294 x10^3/uL (140-400) Neutrophils (%) (Auto) 93 % (31-73) Lymphocytes (%) (Auto) 5 % (24-48) Monocytes (%) (Auto) 1 % (0-9) Eosinophils (%) (Auto) 0 % (0-3) Basophils (%) (Auto) 1 % (0-3) Neutrophils # (Auto) 15.0 x10^3/uL (1.8-7.7) Lymphocytes # (Auto) 0.8 x10^3/uL (1.0-4.8) Monocytes # (Auto) 0.2 x10^3/uL (0.0-1.1) Eosinophils # (Auto) 0.0 x10^3/uL (0.0-0.7) Basophils # (Auto) 0.1 x10^3/uL (0.0-0.2) Segmented Neutrophils % 81 % (35-66) Band Neutrophils % 10 % (0-9) Lymphocytes % 6 % (24-48) Monocytes % 1 % (0-10) Basophils % 1 % (0-3) Myelocytes % 1 % (0-0) Platelet Estimate Adequate (ADEQUATE) Sodium Level 141 mmol/L (136-145) Potassium Level 4.5 mmol/L (3.5-5.1) Chloride Level 105 mmol/L (98-107) Carbon Dioxide Level 29 mmol/L (21-32) Anion Gap 7 (6-14) Blood Urea Nitrogen 18 mg/dL (8-26) Creatinine 1.3 mg/dL (0.7-1.3) Estimated GFR (Cockcroft-Gault) 56.9 BUN/Creatinine Ratio 14 (6-20) Glucose Level 197 mg/dL (70-99) Calcium Level 9.2 mg/dL (8.5-10.1) Total Bilirubin 0.4 mg/dL (0.2-1.0) Aspartate Amino Transf (AST/SGOT) 12 U/L (15-37) Alanine Aminotransferase (ALT/SGPT) 17 U/L (16-63) Alkaline Phosphatase 91 U/L (46-116) Total Protein 7.6 g/dL (6.4-8.2) Albumin 3.1 g/dL (3.4-5.0) Albumin/Globulin Ratio 0.7 (1.0-1.7) Glucose (Fingerstick) 183 mg/dL (70-99) 225 mg/dL (70-99) 319 mg/dL (70-99) Test 03/09/19 07:19 Glucose (Fingerstick) 218 mg/dL (70-99) Laboratory Tests Test 03/08/19 12:10 03/08/19 12:51 03/08/19 17:16 03/08/19 20:49 White Blood Count 16.1 x10^3/uL (4.0-11.0) Red Blood Count 5.13 x10^6/uL (4.30-5.70) Hemoglobin 12.8 g/dL (13.0-17.5) Hematocrit 40.7 % (39.0-53.0) Mean Corpuscular Volume 79 fL (79-100) Mean Corpuscular Hemoglobin 25 pg (25-35) Mean Corpuscular Hemoglobin Concent 32 g/dL (31-37) Red Cell Distribution Width 17.6 % (11.5-14.5) Platelet Count 294 x10^3/uL (140-400) Neutrophils (%) (Auto) 93 % (31-73) Lymphocytes (%) (Auto) 5 % (24-48) Monocytes (%) (Auto) 1 % (0-9) Eosinophils (%) (Auto) 0 % (0-3) Basophils (%) (Auto) 1 % (0-3) Neutrophils # (Auto) 15.0 x10^3/uL (1.8-7.7) Lymphocytes # (Auto) 0.8 x10^3/uL (1.0-4.8) Monocytes # (Auto) 0.2 x10^3/uL (0.0-1.1) Eosinophils # (Auto) 0.0 x10^3/uL (0.0-0.7) Basophils # (Auto) 0.1 x10^3/uL (0.0-0.2) Segmented Neutrophils % 81 % (35-66) Band Neutrophils % 10 % (0-9) Lymphocytes % 6 % (24-48) Monocytes % 1 % (0-10) Basophils % 1 % (0-3) Myelocytes % 1 % (0-0) Platelet Estimate Adequate (ADEQUATE) Sodium Level 141 mmol/L (136-145) Potassium Level 4.5 mmol/L (3.5-5.1) Chloride Level 105 mmol/L (98-107) Carbon Dioxide Level 29 mmol/L (21-32) Anion Gap 7 (6-14) Blood Urea Nitrogen 18 mg/dL (8-26) Creatinine 1.3 mg/dL (0.7-1.3) Estimated GFR (Cockcroft-Gault) 56.9 BUN/Creatinine Ratio 14 (6-20) Glucose Level 197 mg/dL (70-99) Calcium Level 9.2 mg/dL (8.5-10.1) Total Bilirubin 0.4 mg/dL (0.2-1.0) Aspartate Amino Transf (AST/SGOT) 12 U/L (15-37) Alanine Aminotransferase (ALT/SGPT) 17 U/L (16-63) Alkaline Phosphatase 91 U/L (46-116) Total Protein 7.6 g/dL (6.4-8.2) Albumin 3.1 g/dL (3.4-5.0) Albumin/Globulin Ratio 0.7 (1.0-1.7) Glucose (Fingerstick) 183 mg/dL (70-99) 225 mg/dL (70-99) 319 mg/dL (70-99) Test 03/09/19 07:19 Glucose (Fingerstick) 218 mg/dL (70-99) Brief Hospital Course Mr. Solomon is a 59 old [obese,. self [facility] admitted for angioedema, HE gives a dramatic acct of how his tongue and lips got swollen after he took cipro and doxy and other cardiac meds we prescribed for a recent admission for HTN, dm, a fib etc, HE also has a dried up coccygeal wound and leg cellulitis that is healing up and actually very dry, HE was hesistant to go home today as expected but he is eating a reg food with no swallow issues HOme today, DILIA given Claims cant afford meds dcd with Rn as my witness Pt seen and examined d c30 Discharge Information Condition at Discharge: Improved, Stable Disposition/Orders: D/C to Home Scheduled Aspirin (Aspirin) 325 Mg Tablet, 1 TAB PO DAILY for cardiac for 90 Days, #90 Ref 3 Prescribed by: JAK FITZPATRICK MD on 02/27/19 1158 Last Action: Continued on 03/08/191212 by LISA COLEY MD Furosemide (Furosemide) 40 Mg Tablet, 40 MG PO DAILY for a fibm chf, #90 Prescribed by: MEGAN CHA on 01/13/19 0853 Last Action: Continued on 03/08/191212 by LISA COLEY MD Insulin Glargine,Hum.rec.anlog (Lantus) 100 Unit/1 Ml Vial, 8 UNIT SQ QHS for dm for 30 Days Prescribed by: MEGAN CHA on 01/13/19 0853 Last Action: Continued on 03/08/191212 by LISA COLEY MD Metformin Hcl (Metformin Hcl) 500 Mg Tablet, 500 MG PO BIDWMEALS for ANTI- DIABETIC for 30 Days, #60 Ref 1 Prescribed by: JAK FITZPATRICK MD on 02/27/19 120 Last Action: Continued on 03/08/191212 by LISA COLEY MD Metoprolol Tartrate (Metoprolol Tartrate) 25 Mg Tablet, 25 MG PO BID for htn, a fib for 90 Days, #180 Ref 3 Prescribed by: JAK FITZPATRICK MD on 02/27/191157 Last Action: Continued on 03/08/191212 by LISA COLEY MD Potassium Chloride (Klor-Con M20) 20 Meq Tab.er.prt, 20 MEQ PO DAILYWBKFT for low K, while on lasix 40 po, #90 Prescribed by: MEGAN CHA on 01/13/19 0853 Last Action: Continued on 03/08/191212 by LISA COLEY MD Scheduled PRN Acetaminophen With Codeine (Acetaminophen-Cod #3 Tablet) 1 Each Tablet, 1 TAB PO PRN Q6HRS PRN for MODERATE TO SEVERE PAIN for 6 Days, #15 Prescribed by: JAK FITZPATRICK MD on 02/27/191157 Last Action: HELD on 03/08/191212 by LISA COLEY MD Albuterol Sulfate (Proair Hfa) 8.5 Gm Hfa.aer.ad, 2.5 MG NEB PRN Q4HRS PRN for SHORTNESS OF BREATH for 30 Days Prescribed by: MEGAN CHA on 03/09/19 0906 Discontinued Medications Ciprofloxacin Hcl (Cipro) 250 Mg Tablet, 500 MG PO BID for cellulitis for 10 Days, #40 Can sub with #20 of 500mg cipro tabs Prescribed by: JAK FITZPATRICK MD on 02/27/191157 Last Action: HELD on 03/08/191212 by LISA COLEY MD Doxycycline Hyclate (Doxycycline Hyclate) 100 Mg Tablet, 100 MG PO BID for Cellulitis for 10 Days, #20 Prescribed by: JAK FITZPATRICK MD on 02/27/191157 Last Action: HELD on 03/08/191212 by MD STARLA MOCK CHERRIE Y MD Mar 09, 2019 09:18
[2019-03-09 09:39] LABS: BASO # 0.2 x10^3/uL (0.0-0.2); BASO % 1 % (0-3); EOS % 0 % (0-3); HEMATOCRIT 38.7 % (39.0-53.0); HEMOGLOBIN 12.1 g/dL (13.0-17.5); LYMPH # 1.3 x10^3/uL (1.0-4.8); LYMPH % 5 % (24-48); MEAN CORPUSCULAR HEMOGLOBIN 25 pg (25-35); MEAN CORPUSCULAR HGB CONC 31 g/dL (31-37); MEAN CORPUSCULAR VOLUME 80 fL (79-100); MONO # 0.2 x10^3/uL (0.0-1.1); MONO % 1 % (0-9); NEUT % 94 % (31-73); PLATELET COUNT 307 x10^3/uL (140-400); RED BLOOD COUNT 4.85 x10^6/uL (4.30-5.70); RED CELL DISTRIBUTION WIDTH 17.5 % (11.5-14.5); WHITE BLOOD COUNT 24.6 x10^3/uL (4.0-11.0)
[2019-03-09 10:03] LABS: CALCIUM 9.2 mg/dL (8.5-10.1); CREATININE 1.2 mg/dL (0.7-1.3); GFR 62.4
--- NOTE | 2019-03-09 10:43 | PDOC ---
Infectious Disease Note Subjective: Subjective pt known to our team was readmitted with angioedema on 03/08 HPI 59 yo male represented to ED with lip swelling, tongue swelling.He was given Methylprednisolon CXR negative Today pt feels back to baseline NO f/c/n/v/oral sores/difficulty swallowing LLE swelling and ulcer are stable no gu symptoms ROS: ROS Negative otherwise. Vital Signs: Vital Signs Vital Signs Date Time Temp Pulse Resp B/P (MAP) Pulse Ox O2 Delivery O2 Flow Rate FiO2 03/09/19 08:44 87 103/74 03/09/19 08:00 Room Air 03/09/19 07:36 98.6 20 92 98.6 03/08/19 12:00 3.0 Physical Exam: PHYSICAL EXAM GENERAL: Sitting in the chair, alert, joking HEENT: Oral cavity, pharynx clear, no thrush, no tongue swelling or lesions noted, dentition questionable NECK: Supple. LUNGS: Decreased in the bases. HEART: S1, S2. ABDOMEN: Morbidly obese and soft. No guarding or rebound. EXTREMITIES: Chronic lymphedema bilaterally. Derm LLE ulcerations/scales,no purulence; superfiical skin breakdown at coccyx, not infected He does have tinea bilaterally on lower extremities. NEUROLOGIC: Alert, oriented nonfocal PIV Medications: Inpatient Meds: Current Medications Medications (Trade) Dose Ordered Sig/Masood Start Time Stop Time Status Last Admin Dose Admin Acetaminophen (Tylenol) 650 mg PRN Q4HRS PRN 03/08/19 12:30 Albuterol Sulfate (Ventolin Neb Soln) 2.5 mg PRN Q4HRS PRN 03/08/19 12:30 Aspirin (Jailyn Aspirin) 325 mg DAILY 03/08/19 13:00 03/09/19 08:44 325 MG Clonidine HCl (Catapres) 0.1 mg PRN Q6HRS PRN 03/08/19 12:30 03/08/19 17:22 0.1 MG Dextrose (Dextrose 50%-Water Syringe) 12.5 gm PRN Q15MIN PRN 03/08/19 12:30 Docusate Sodium (Colace) 100 mg PRN BID PRN 03/08/19 12:30 Enoxaparin Sodium (Lovenox 40mg Syringe) 40 mg DAILY 03/09/19 09:00 03/08/19 13:04 DC Enoxaparin Sodium (Lovenox 60mg Syringe) 60 mg Q12HR 03/08/19 21:00 03/09/19 08:45 60 MG Famotidine (Pepcid Vial) 20 mg BID 03/08/19 12:00 03/09/19 07:59 DC 03/08/19 20:48 20 MG Furosemide (Lasix) 40 mg DAILY 03/08/19 13:00 03/09/19 08:43 40 MG Guaifenesin (Robitussin) 200 mg PRN Q4HRS PRN 03/08/19 12:30 Insulin Glargine (Lantus Syringe) 8 unit QHS 03/08/19 21:00 03/08/19 20:56 8 UNIT Insulin Human Lispro (HumaLOG) 20 units 1X ONCE 03/08/19 22:30 03/08/19 22:31 DC 03/08/19 23:16 20 UNITS Lorazepam (Ativan) 0.5 mg PRN Q4HRS PRN 03/08/19 12:30 Metformin HCl (Glucophage) 500 mg BIDWMEALS 03/08/19 17:00 03/09/19 08:43 500 MG Methylprednisolone Sodium Succinate (SOLU-Medrol 125MG VIAL) 40 mg Q8HRS 03/09/19 08:00 03/09/19 08:46 40 MG Metoprolol Tartrate (Lopressor) 25 mg BID 03/08/19 13:00 03/09/19 08:44 25 MG Ondansetron HCl (Zofran) 4 mg PRN Q4HRS PRN 03/08/19 12:30 Potassium Chloride (Klor-Con) 20 meq DAILYWBKFT 03/09/19 08:00 03/09/19 08:43 20 MEQ Sodium Chloride (Normal Saline Flush) 3 ml QSHIFT PRN 03/08/19 12:30 Zolpidem Tartrate (Ambien) 5 mg PRN QHS PRN 03/09/19 00:00 Labs: Lab Laboratory Tests Test 03/08/19 12:10 03/08/19 12:51 03/08/19 17:16 03/08/19 20:49 White Blood Count 16.1 x10^3/uL (4.0-11.0) Red Blood Count 5.13 x10^6/uL (4.30-5.70) Hemoglobin 12.8 g/dL (13.0-17.5) Hematocrit 40.7 % (39.0-53.0) Mean Corpuscular Volume 79 fL (79-100) Mean Corpuscular Hemoglobin 25 pg (25-35) Mean Corpuscular Hemoglobin Concent 32 g/dL (31-37) Red Cell Distribution Width 17.6 % (11.5-14.5) Platelet Count 294 x10^3/uL (140-400) Neutrophils (%) (Auto) 93 % (31-73) Lymphocytes (%) (Auto) 5 % (24-48) Monocytes (%) (Auto) 1 % (0-9) Eosinophils (%) (Auto) 0 % (0-3) Basophils (%) (Auto) 1 % (0-3) Neutrophils # (Auto) 15.0 x10^3/uL (1.8-7.7) Lymphocytes # (Auto) 0.8 x10^3/uL (1.0-4.8) Monocytes # (Auto) 0.2 x10^3/uL (0.0-1.1) Eosinophils # (Auto) 0.0 x10^3/uL (0.0-0.7) Basophils # (Auto) 0.1 x10^3/uL (0.0-0.2) Segmented Neutrophils % 81 % (35-66) Band Neutrophils % 10 % (0-9) Lymphocytes % 6 % (24-48) Monocytes % 1 % (0-10) Basophils % 1 % (0-3) Myelocytes % 1 % (0-0) Platelet Estimate Adequate (ADEQUATE) Sodium Level 141 mmol/L (136-145) Potassium Level 4.5 mmol/L (3.5-5.1) Chloride Level 105 mmol/L (98-107) Carbon Dioxide Level 29 mmol/L (21-32) Anion Gap 7 (6-14) Blood Urea Nitrogen 18 mg/dL (8-26) Creatinine 1.3 mg/dL (0.7-1.3) Estimated GFR (Cockcroft-Gault) 56.9 BUN/Creatinine Ratio 14 (6-20) Glucose Level 197 mg/dL (70-99) Calcium Level 9.2 mg/dL (8.5-10.1) Total Bilirubin 0.4 mg/dL (0.2-1.0) Aspartate Amino Transf (AST/SGOT) 12 U/L (15-37) Alanine Aminotransferase (ALT/SGPT) 17 U/L (16-63) Alkaline Phosphatase 91 U/L (46-116) Total Protein 7.6 g/dL (6.4-8.2) Albumin 3.1 g/dL (3.4-5.0) Albumin/Globulin Ratio 0.7 (1.0-1.7) Glucose (Fingerstick) 183 mg/dL (70-99) 225 mg/dL (70-99) 319 mg/dL (70-99) Test 03/09/19 07:19 03/09/19 09:15 Glucose (Fingerstick) 218 mg/dL (70-99) White Blood Count 24.6 x10^3/uL (4.0-11.0) Red Blood Count 4.85 x10^6/uL (4.30-5.70) Hemoglobin 12.1 g/dL (13.0-17.5) Hematocrit 38.7 % (39.0-53.0) Mean Corpuscular Volume 80 fL (79-100) Mean Corpuscular Hemoglobin 25 pg (25-35) Mean Corpuscular Hemoglobin Concent 31 g/dL (31-37) Red Cell Distribution Width 17.5 % (11.5-14.5) Platelet Count 307 x10^3/uL (140-400) Neutrophils (%) (Auto) 94 % (31-73) Lymphocytes (%) (Auto) 5 % (24-48) Monocytes (%) (Auto) 1 % (0-9) Eosinophils (%) (Auto) 0 % (0-3) Basophils (%) (Auto) 1 % (0-3) Neutrophils # (Auto) 23.0 x10^3/uL (1.8-7.7) Lymphocytes # (Auto) 1.3 x10^3/uL (1.0-4.8) Monocytes # (Auto) 0.2 x10^3/uL (0.0-1.1) Eosinophils # (Auto) 0.0 x10^3/uL (0.0-0.7) Basophils # (Auto) 0.2 x10^3/uL (0.0-0.2) Sodium Level 140 mmol/L (136-145) Potassium Level 4.0 mmol/L (3.5-5.1) Chloride Level 103 mmol/L (98-107) Carbon Dioxide Level 29 mmol/L (21-32) Anion Gap 8 (6-14) Blood Urea Nitrogen 21 mg/dL (8-26) Creatinine 1.2 mg/dL (0.7-1.3) Estimated GFR (Cockcroft-Gault) 62.4 Glucose Level 254 mg/dL (70-99) Calcium Level 9.2 mg/dL (8.5-10.1) Objective: Assessment: Angioedema POA resolved,awaiting dc home today Leucocytosis from steroids LLE cellultis Tinea Lymphedema H/o Afib RVR s/p cardioversion 01/10 DM Morbid obesity CKD Plan: Plan of Care Ok to dc on empiric augmentin Elevation of legs local wound care will need compression eventually optimal dm control compliance with medications discussed TERRY BORJA MD Mar 09, 2019 10:43
[2019-03-09 11:56] VITALS: BP 110/55
--- NOTE | 2019-03-09 13:28 | NUR ---
Pt discharged to home. Discharge teaching done with patient. Prescription handed to pt. Pt brought out by wheelchair and transportation provided by bus.
== END 2019-03-09 13:20 | disposition home or self-care (01) | DRG 916 ==
LOC: ER 04:25 → 1 WEST ICU 04:45 → 6 SOUTH 18:53
PROVIDERS: ADMIT Internal Medicine; ATTEND Internal Medicine
DX: T78.3XXA Angioneurotic edema, initial encounter (principal); I13.0 Hypertensive heart and chronic kidney disease with heart failure and stage 1 through stage 4 chronic kidney disease, or unspecified chronic kidney disease; I50.32 Chronic diastolic (congestive) heart failure; L03.116 Cellulitis of left lower limb; Z68.43 Body mass index [BMI] 50.0-59.9, adult; B35.1 Tinea unguium; E11.22 Type 2 diabetes mellitus with diabetic chronic kidney disease; E66.01 Morbid (severe) obesity due to excess calories; F17.210 Nicotine dependence, cigarettes, uncomplicated; I89.0 Lymphedema, not elsewhere classified; N18.9 Chronic kidney disease, unspecified; Z79.4 Long term (current) use of insulin; Z79.82 Long term (current) use of aspirin; Z79.899 Other long term (current) drug therapy; Z82.49 Family history of ischemic heart disease and other diseases of the circulatory system; Z88.8 Allergy status to other drugs, medicaments and biological substances
CPT/HCPCS: 36415; 71045; 80048; 80053; 82962; 85007; 85025; 87040; J1650; J1815; J2930; J3490; G0378

== ENCOUNTER 2019-03-23 08:58 | Emergency (ER) | payer SELFPAY ==
[~2019-03-23] VITALS: Ht 170.2 cm; Wt 178.7 kg
[~2019-03-23 08:58] MED LIST changes: +ALBU2.5V8 NEB
--- NOTE | 2019-03-23 09:27 | NUR ---
Unsuccessful straight stick attempt in right forearm by Kristin Garza ([employer] Student).
[2019-03-23] MEDS ORDERED: SILVER NITRATE STICK TP ONE (09:30)
[2019-03-23 09:55] LABS: BASO # 0.1 x10^3/uL (0.0-0.2); BASO % 1 % (0-3); EOS # 0.2 x10^3/uL (0.0-0.7); EOS % 2 % (0-3); HEMATOCRIT 37.2 % (39.0-53.0); LYMPH # 1.6 x10^3/uL (1.0-4.8); LYMPH % 18 % (24-48); MEAN CORPUSCULAR HEMOGLOBIN 26 pg (25-35); MEAN CORPUSCULAR HGB CONC 32 g/dL (31-37); MEAN CORPUSCULAR VOLUME 80 fL (79-100); MONO # 0.6 x10^3/uL (0.0-1.1); MONO % 7 % (0-9); NEUT # 6.7 x10^3/uL (1.8-7.7); NEUT % 73 % (31-73); PLATELET COUNT 252 x10^3/uL (140-400); RED BLOOD COUNT 4.64 x10^6/uL (4.30-5.70); RED CELL DISTRIBUTION WIDTH 17.6 % (11.5-14.5); WHITE BLOOD COUNT 9.2 x10^3/uL (4.0-11.0)
[2019-03-23 09:56] LABS: CALCIUM 8.9 mg/dL (8.5-10.1); CREATININE 1.4 mg/dL (0.7-1.3); GFR 52.2; POTASSIUM 3.1 mmol/L (3.5-5.1)
[2019-03-23 10:03] LABS: ALBUMIN 3.2 g/dL (3.4-5.0); ALBUMIN/GLOBULIN RATIO 0.8 (1.0-1.7); TOTAL BILIRUBIN 0.5 mg/dL (0.2-1.0); TOTAL PROTEIN 7.4 g/dL (6.4-8.2)
[2019-03-23 10:05] LABS: PROTHROMBIN TIME PATIENT 14.4 SEC (11.7-14.0)
[2019-03-23] MEDS ORDERED: POTASSIUM CHLORIDE 20 MEQ TABLET.ER. PO ONE (10:15)
--- NOTE | 2019-03-23 10:15 | PHYS DOC ---
Past Medical History Past Medical History: A-Fib, CHF, Depression, Diabetes-Type II, Hypertension, Other Additional Past Medical Histor: CELLULITIS Past Surgical History: Other Additional Past Surgical Histo: HERNIA, R ARM TENDON REPAIR Alcohol Use: None Drug Use: None Adult General Chief Complaint Chief Complaint: LOWEREXTREMITY INJURY [facility] HPI Patient is a 59 year old male patient with history of a patient without anticoagulation therapy who presents via EMS with left leg bleeding. Patient states he was at work and his left leg started bleeding without any injury and he could not stop the bleeding. Patient states he had one episode of the same problem previously and denies dizziness, chest pain, shortness of breath, nausea and vomiting. Patient did not have active bleeding at arrival to ER. Review of Systems Review of Systems Constitutional: Denies fever or chills [] Eyes: Denies change in visual acuity, redness, or eye pain [] HENT: Denies nasal congestion or sore throat [] Respiratory: Denies cough or shortness of breath [] Cardiovascular: No additional information not addressed in HPI [] GI: Denies abdominal pain, nausea, vomiting, bloody stools or diarrhea [] : Denies dysuria or hematuria [] Musculoskeletal: Denies back pain or joint pain [] Integument: Denies rash, reports skin lesions [] Neurologic: Denies headache, focal weakness or sensory changes [] Endocrine: Denies polyuria or polydipsia [] All other systems were reviewed and found to be within normal limits, except as documented in this note. Current Medications Current Medications Current Medications Medications (Trade) Dose Ordered Sig/Masood Start Time Stop Time Status Last Admin Dose Admin Silver Nitrate/ Potassium Nitrate 1 each 1X ONCE 03/23/19 09:30 03/23/19 09:31 DC Allergies Allergies Allergies Coded Allergies Type Severity Reaction Last Updated Verified ciprofloxacin Allergy Severe 03/09/19 Yes doxycycline Allergy Severe 03/09/19 Yes Physical Exam Physical Exam Constitutional: Well developed, well nourished, mild distress, non-toxic appearance, morbidly obese. [] HENT: Normocephalic, atraumatic. Eyes: PERRLA, EOMI, conjunctiva normal, no discharge. [] Neck: Normal range of motion, no tenderness, supple, no stridor. [] Cardiovascular:Heart rate regular rhythm, no murmur [] Lungs & Thorax: Bilateral breath sounds clear to auscultation [] Skin: Left lower extremity with dried blood and scratching lines without active bleeding Back: No tenderness, no CVA tenderness. [] Extremities: No tenderness, no cyanosis, no clubbing, ROM intact, 2+ bilateral lower extremity edema. [] Neurologic: Alert and oriented X 3, no focal deficits noted. [] Psychologic: Affect normal, judgement normal, mood normal. [] Current Patient Data Vital Signs Vital Signs Date Time Temp Pulse Resp B/P (MAP) Pulse Ox O2 Delivery O2 Flow Rate FiO2 03/23/19 08:58 97.7 103 20 124/69 (87) 94 Room Air 97.7 EKG EKG [] Radiology/Procedures Radiology/Procedures [] Course & Med Decision Making Course & Med Decision Making Pertinent Labs reviewed. (See chart for details) Evaluation of patient in ER showed 59-year-old male patient with morbid obesity and lower extremity edema and psychosis brought in by EMS because of bleeding that was stopped arrival to ER. Patient had lines of scratching lines without active bleeding. Steri-Strip was placed on area of previously bleeding. Patient was advised follow-up with vascular surgeon avoid of scratching his leg. Dragon Disclaimer Dragon Disclaimer This electronic medical record was generated, in whole or in part, using a voice recognition dictation system. Departure Departure Impression: Primary Impression: Bleeding from varicose veins of left lower extremity Additional Impressions: Hypokalemia Renal insufficiency Disposition: HOME, SELF-CARE (at 1014) Condition: IMPROVED Referrals: NO PCP (PCP) Patient Instructions: Bleeding Varicose Veins, Chronic Renal Insufficiency, Hypokalemia Additional Instructions: Follow-up with vascular surgeon for varicose insulin Follow-up with your primary care physician in 3-5 days Return to ER if not getting better Problem Qualifiers MYAH PEREZ MD Mar 23, 2019 10:15
[2019-03-23 10:46] VITALS: BP 141/97
== END 2019-03-23 11:51 | disposition home or self-care (01) ==
LOC: ER 08:59
DX: I83.893 Varicose veins of bilateral lower extremities with other complications (principal); E87.6 Hypokalemia; N28.9 Disorder of kidney and ureter, unspecified; I48.91 Unspecified atrial fibrillation; I11.0 Hypertensive heart disease with heart failure; I50.9 Heart failure, unspecified; E11.9 Type 2 diabetes mellitus without complications; Z88.1 Allergy status to other antibiotic agents
CPT/HCPCS: 36415; 80053; 85025; 85610; 85730; 99284

== ENCOUNTER 2019-12-20 07:17 | Inpatient (IN) | payer SELFPAY ==
[~2019-12-20] VITALS: Ht 172.7 cm; Wt 177.0 kg
[2019-12-20] MEDS ORDERED: FUROSEMIDE 40 MG/4 ML VIAL. IVP ONE (07:45)
[2019-12-20] MEDS ORDERED: CEPHALEXIN 250 MG CAPSULE. PO SCH (07:45)
[2019-12-20] MEDS ORDERED: METOPROLOL TART IMMED RELEASE 25 MG TABLET. PO ONE (07:45)
--- NOTE | 2019-12-20 07:50 | PHYS DOC ---
"Past Medical History Past Medical History: A-Fib, CHF, Depression, Diabetes-Type II, Hypertension, Other Additional Past Medical Histor: CELLULITIS Past Surgical History: Other Additional Past Surgical Histo: HERNIA, R ARM TENDON REPAIR Smoking Status: Never Smoker Alcohol Use: None Drug Use: None General Adult EDM: Chief Complaint: LOWER EXT PAIN HPI: HPI: The history was obtained from the patient. Patient is a 59-year-old male with PMH atrial fibrillation, hypertension, diabetes, chronic venous stasis in lower extremities who presents with a chief complaint of left lower extremity pain. Patient states he has had swelling to the left lower extremity for the past several months. He states that the discomfort increased over the past few days. He states he has noted purple discoloration in his left lower extremity for several months as well. He does note drainage from his left lower extremity. He states it is clear in nature. States the reason he presented today because the pain seemed to have increased over the past couple of days. He does note that he has several medical problems and has not been taking medication because he cannot afford them. He states he has issues with obtaining medical insurance. He states he is currently living at a house with friends. 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 He denies any chest pain. He does note some shortness of breath with exertion but states this is typical for him given his size. Is any increase swelling recently in his lower extremities. Denies any falls or trauma. Denies abdominal pain or vomiting. He states he was taking his home medications last fall upon discharge. He notes he was hospitalized approximately a year ago for oral swelling. Denies tobacco or alcohol abuse. Denies any drug use. Denies any fevers. Denies any known exposure to coronavirus. Denies any syncope. Denies any history of blood clot in the legs or lungs. Does not take blood thinners. No other complaints. Review of Systems: Review of Systems: Constitutional: Denies fever or chills. [] Eyes: Denies change in visual acuity. [] HENT: Denies nasal congestion or sore throat. [] Respiratory: Positive for shortness of breath Cardiovascular: Positive for irregular heart rate, positive for edema GI: Denies abdominal pain, nausea, vomiting, bloody stools or diarrhea. [] : Denies dysuria. [] Musculoskeletal: Denies back pain or joint pain. [] Integument: Denies rash. [] Neurologic: Denies headache, focal weakness or sensory changes. [] Endocrine: Denies polyuria or polydipsia. [] Lymphatic: Denies swollen glands. [] Psychiatric: Denies depression or anxiety. [] Heart Score: Risk Factors: Risk Factors: DM, Current or recent (<one month) smoker, HTN, HLP, family history of CAD, obesity. Risk Scores: Score 0 - 3: 2.5% MACE over next 6 weeks - Discharge Home Score 4 - 6: 20.3% MACE over next 6 weeks - Admit for Clinical Observation Score 7 - 10: 72.7% MACE over next 6 weeks - Early Invasive Strategies Allergies: Allergies: Allergies Coded Allergies Type Severity Reaction Last Updated Verified ciprofloxacin Allergy Severe 03/09/19 Yes doxycycline Allergy Severe 03/09/19 Yes Physical Exam: PE: Constitutional: Obese. Unkempt HENT: Normocephalic, atraumatic, bilateral external ears normal, oropharynx mo ist, no oral exudates, nose normal. [] Eyes: PERRLA, EOMI, conjunctiva normal, no discharge. [] Neck: Normal range of motion, no tenderness, supple, no stridor. [] Cardiovascular: Tachycardic. No murmurs rubs or gallops noted. Lungs & Thorax: Bilateral breath sounds clear to auscultation [] Abdomen: soft, no tenderness, no masses, no pulsatile masses. [] Skin: Warm, dry, no erythema, no rash. [] Back: No tenderness, no CVA tenderness. [] Extremities: Slightly increased unilateral swelling of the left lower extremity. Purple skin discoloration noted of the left lower extremity consistent with venous stasis hyperpigmentation. Serous fluid expressed with palpation. Minimal overlying erythema or induration. No crepitus palpated. Plus 2 out of 4 DP pulses bilaterally. Neurologic: Alert and oriented X 3, normal motor function, normal sensory function, no focal deficits noted. [] Psychologic: Affect normal, judgement normal, mood normal. [] Current Patient Data: Labs: Laboratory Tests Test 12/20/19 07:58 12/20/19 08:01 Glucose (Fingerstick) 176 mg/dL White Blood Count 10.1 x10^3/uL Red Blood Count 4.98 x10^6/uL Hemoglobin 11.8 g/dL Hematocrit 36.5 % Mean Corpuscular Volume 73 fL Mean Corpuscular Hemoglobin 24 pg Mean Corpuscular Hemoglobin Concent 32 g/dL Red Cell Distribution Width 19.0 % Platelet Count 269 x10^3/uL Neutrophils (%) (Auto) 83 % Lymphocytes (%) (Auto) 11 % Monocytes (%) (Auto) 5 % Eosinophils (%) (Auto) 0 % Basophils (%) (Auto) 1 % Neutrophils # (Auto) 8.4 x10^3/uL Lymphocytes # (Auto) 1.1 x10^3/uL Monocytes # (Auto) 0.5 x10^3/uL Eosinophils # (Auto) 0.0 x10^3/uL Basophils # (Auto) 0.1 x10^3/uL Prothrombin Time 16.3 SEC Prothromb Time International Ratio 1.4 Sodium Level 137 mmol/L Potassium Level 3.7 mmol/L Chloride Level 101 mmol/L Carbon Dioxide Level 29 mmol/L Anion Gap 7 Blood Urea Nitrogen 10 mg/dL Creatinine 1.5 mg/dL Estimated GFR (Cockcroft-Gault) 48.2 Glucose Level 161 mg/dL Lactic Acid Level 2.1 mmol/L Calcium Level 8.7 mg/dL Magnesium Level 1.8 mg/dL Troponin I Quantitative 0.033 ng/mL [id number] Natriuretic Peptide 1661 pg/mL Current Medications Medications (Trade) Dose Ordered Sig/Masood Route PRN Reason Start Time Stop Time Status Last Admin Dose Admin Furosemide (Lasix) 40 mg 1X ONCE IVP 12/20/19 07:45 12/20/19 08:21 DC Metoprolol Tartrate (Lopressor) 25 mg 1X ONCE PO 12/20/19 07:45 12/20/19 08:21 DC Cephalexin HCl (Keflex) 1,000 mg 1X PO 12/20/19 07:45 12/20/19 08:43 Sodium Chloride 1,000 ml @ 500 mls/hr 1X ONCE IV 12/20/19 08:30 12/20/19 10:29 DC 12/20/19 08:30 Vital Signs: Vital Signs Date Time Temp Pulse Resp B/P (MAP) Pulse Ox O2 Delivery O2 Flow Rate FiO2 12/20/19 10:30 98 16 125/89 (101) 96 Room Air 12/20/19 10:00 95 16 151/71 (97) 96 Room Air 12/20/19 09:30 100 14 131/63 (85) 96 Room Air 12/20/19 09:00 102 20 106/59 (75) 91 Room Air 12/20/19 08:30 100 20 136/61 (86) 90 Room Air 12/20/19 08:00 106 20 137/71 (93) 90 Room Air 12/20/19 07:24 98.0 110 20 191/98 (129) 95 Room Air 98.0 EKG: EKG: EKG consistent with sinus tachycardia. Ventricular rate of 105 bpm. Left axis noted. Occasional PVC present. Flipped T wave in lead V2. QTc 511. No acute ischemic changes appreciated. Abnormal EKG. Overall similar to EKG from February 23, 2018. [] Repeat EKG 08:17 | EKG consistent with sinus tachycardia. Ventricular rate of 102 bpm. Left axis noted. Occasional PVC appreciated. Nonspecific interventricular conduction delay present. No dynamic ischemic changes appreciated. Morphology similar to previous EKG from today. Radiology/Procedures: Radiology/Procedures: [facility] [address] [place] [address] IMAGING REPORT Signed PATIENT: DARRICK STOVER RACCOUNT: [id number] : 1960 LOCATION: ER AGE: 59 SEX: M EXAM STATUS: REG ER ORD. PHYSICIAN: HARRISON CARRION DO REASON: LLE swelling PROCEDURE: VENOUS LOWER EXTREMITY LEFT STUDY: US VENOUS LOWER EXTREMITY LEFT INDICATION: Left lower extremity swelling. TECHNIQUE: Color-flow and pulsed wave duplex ultrasound with compression of venous structures of the left lower extremity. COMPARISON: 01/08/2019. FINDINGS: Duplex ultrasound with compression of the deep venous structures of the left lower extremity from the common femoral vein through the popliteal vein is negative for DVT. The posterior tibial and peroneal veins are segmentally visualized and patent where seen. Normal venous waveforms and augmentation are noted throughout. IMPRESSION: No deep venous thrombosis seen throughout the left lower extremity. Electronically signed by: JUAN M OLMOS MD (12/20/2019 8:13 AM) [id number] DICTATED and SIGNED BY: JUAN M OLMOS MD DATE: 12/20/19812 [][facility] [address] [place] [address] IMAGING REPORT Signed PATIENT: DARRICK STOVER RACCOUNT: [id number] : 1960 LOCATION: ER AGE: 59 SEX: M EXAM STATUS: REG ER ORD. PHYSICIAN: HARRISON CARRION DO REASON: SOB PROCEDURE: CHEST AP ONLY AP chest. HISTORY: Short of breath AP view was taken of the chest. There are old left rib fractures. Heart is upper normal in size. Left lung base is not optimally evaluated. No definite infiltrates are noted. IMPRESSION: 1. Mild cardiac enlargement. 2. No definite infiltrates. Electronically signed by: Doug Jenkins MD (12/20/2019 8:26 AM) [id number] DICTATED and SIGNED BY: DOUG JENKINS MD DATE: 12/20/19825 Course & Med Decision Making: Course & Med Decision Making Pertinent Labs and Imaging studies reviewed. (See chart for details) Patient is a 59-year-old male who presents with complaint of left lower extremity pain. Initial vital signs normal for mild tachycardia. Slight hypertension. Patient does have poor medical knowledge, resources, and compliance. I do feel most of his issues are related to chronic illness. Patient's left lower extremity is most likely hyperpigmentation from venous stasis however given he is mildly tachycardic and did have a slight elevated lactate of 2.11 g of Ancef was administered. IV fluids were administered. EKG consistent with sinus tachycardia. I did engage social work for potential discharge planning to help patient arrange outpatient management of his chronic illness. However, I do feel that patient may need more thorough assistance in his home health care management. Furthermore given his mild lactic acid and potential source of infection he may benefit from further antibiosis. After discussion with the patient he does state that he would prefer to be hospitalized and does have concern for going home. Given this he will be hospitalized. Dragon Disclaimer: Draghilary Disclaimer: This electronic medical record was generated, in whole or in part, using a voice recognition dictation system. 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
--- NOTE | 2019-12-20 08:16 | RAD ---
STUDY: US VENOUS LOWER EXTREMITY LEFT INDICATION: Left lower extremity swelling. TECHNIQUE: Color-flow and pulsed wave duplex ultrasound with compression of venous structures of the left lower extremity. COMPARISON: 01/08/2019. FINDINGS: Duplex ultrasound with compression of the deep venous structures of the left lower extremity from the common femoral vein through the popliteal vein is negative for DVT. The posterior tibial and peroneal veins are segmentally visualized and patent where seen. Normal venous waveforms and augmentation are noted throughout. IMPRESSION: No deep venous thrombosis seen throughout the left lower extremity. Electronically signed by: JUAN M OLMOS MD (12/20/2019 8:13 AM) [id number]
[2019-12-20 08:18] LABS: BASO # 0.1 x10^3/uL (0.0-0.2); BASO % 1 % (0-3); EOS % 0 % (0-3); HEMATOCRIT 36.5 % (39.0-53.0); HEMOGLOBIN 11.8 g/dL (13.0-17.5); LYMPH # 1.1 x10^3/uL (1.0-4.8); LYMPH % 11 % (24-48); MEAN CORPUSCULAR HEMOGLOBIN 24 pg (25-35); MEAN CORPUSCULAR HGB CONC 32 g/dL (31-37); MEAN CORPUSCULAR VOLUME 73 fL (79-100); MONO # 0.5 x10^3/uL (0.0-1.1); MONO % 5 % (0-9); NEUT # 8.4 x10^3/uL (1.8-7.7); NEUT % 83 % (31-73); PLATELET COUNT 269 x10^3/uL (140-400); RED BLOOD COUNT 4.98 x10^6/uL (4.30-5.70); WHITE BLOOD COUNT 10.1 x10^3/uL (4.0-11.0)
[2019-12-20 08:23] LABS: CALCIUM 8.7 mg/dL (8.5-10.1); CREATININE 1.5 mg/dL (0.7-1.3); GFR 48.2; POTASSIUM 3.7 mmol/L (3.5-5.1)
[2019-12-20 08:24] LABS: MAGNESIUM 1.8 mg/dL (1.8-2.4)
--- NOTE | 2019-12-20 08:29 | RAD ---
AP chest. HISTORY: Short of breath AP view was taken of the chest. There are old left rib fractures. Heart is upper normal in size. Left lung base is not optimally evaluated. No definite infiltrates are noted. IMPRESSION: 1. Mild cardiac enlargement. 2. No definite infiltrates. Electronically signed by: Doug Jenkins MD (12/20/2019 8:26 AM) [id number]
[2019-12-20] MEDS ORDERED: IV NORMAL SALINE 1000ML BAG 1,000 ML IV ONE (08:30)
[2019-12-20 08:33] LABS: PROTHROMBIN TIME PATIENT 16.3 SEC (11.7-14.0)
--- NOTE | 2019-12-20 11:48 | PDOC1 ---
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 Patient states he has had swelling to the left lower extremity for the past several months. He states that the discomfort increased over the past few days. He states he has noted purple discoloration in his left lower extremity for several months as well. He does note drainage from his left lower extremity. He states it is clear in nature. States the reason he presented today because the pain seemed to have increased over the past couple of days. He does note that he has several medical problems and has not been taking medication because he cannot afford them. He states he has issues with obtaining medical insurance. He states he is currently living a t a house with friends. 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 He denies any chest pain. He does note some shortness of breath with exertion Past Medical History Past Medical History Past Medical History Past Medical History: A-Fib, CHF, Depression, Diabetes-Type II, Hypertension, Other Additional Past Medical Histor: CELLULITIS Past Surgical History: Other Additional Past Surgical Histo: HERNIA, R ARM TENDON REPAIR Smoking Status: Never Smoker Alcohol Use: None Drug Use: None FHX OBESITY Cardiovascular: CHF, HTN Pulmonary: No pertinent hx GI: No pertinent hx Heme/Onc: Anemia NOS Hepatobiliary: No pertinent hx Psych: No pertinent hx Rheumatologic: No pertinent hx Infectious disease: No pertinent hx Renal/: Chronic renal insuff Endocrine: No pertinent hx Past Surgical History Past Surgical History: Hernia Repair Family History Family History: Hypertension Social History Smoke: No ALCOHOL: none Drugs: None Current Problem List Problem List Problems Medical Problems: (1) SHANDRA (acute kidney injury) Status: Acute (2) Diabetes Status: Acute (3) Lactic acidemia Status: Acute (4) Nonadherence to medication Status: Acute (5) Obesity Status: Acute Current Medications Current Medications Current Medications Furosemide (Lasix) 40 mg 1X ONCE IVP ; Start 12/20/19 at 07:45; Stop 12/20/19 at 08:21; Status DC Metoprolol Tartrate (Lopressor) 25 mg 1X ONCE PO ; Start 12/20/19 at 07:45; Stop 12/20/19 at 08:21; Status DC Cephalexin HCl (Keflex) 1,000 mg 1X PO Last administered on 12/20/19at 08:43; Start 12/20/19 at 07:45 Sodium Chloride 1,000 ml @ 500 mls/hr 1X ONCE IV Last administered on 12/20/19at 08:30; Start 12/20/19 at 08:30; Stop 12/20/19 at 10:29; Status DC Active Scripts Active Proair Hfa (Albuterol Sulfate) 8.5 Gm Hfa.aer.ad 2.5 Mg NEB PRN Q4HRS PRN 30 Days Metformin Hcl 500 Mg Tablet 500 Mg PO BIDWMEALS 30 Days Acetaminophen-Cod #3 Tablet (Acetaminophen/Codeine Phosphate) 1 Each Tablet 1 Tab PO PRN Q6HRS PRN 6 Days Aspirin 325 Mg Tablet 1 Tab PO DAILY 90 Days Metoprolol Tartrate 25 Mg Tablet 25 Mg PO BID 90 Days Lantus (Insulin Glargine,Hum.rec.anlog) 100 Unit/1 Ml Vial 8 Unit SQ QHS 30 Days Klor-Con M20 (Potassium Chloride) 20 Meq Tab.er.prt 20 Meq PO DAILYWBKFT Furosemide 40 Mg Tablet 40 Mg PO DAILY Allergies Allergies: Coded Allergies: ciprofloxacin (Verified Allergy, Severe, 03/09/19) lip swelling doxycycline (Verified Allergy, Severe, 03/09/19) lip swelling ROS Review of System Review of Systems: Constitutional: Denies fever or chills. [] Eyes: Denies change in visual acuity. [] HENT: Denies nasal congestion or sore throat. [] Respiratory: Positive for shortness of breath Cardiovascular: Positive for irregular heart rate, positive for edema GI: Denies abdominal pain, nausea, vomiting, bloody stools or diarrhea. [] : Denies dysuria. [] Musculoskeletal: Denies back pain or joint pain. [] Integument: LEFT LEG RASH [] Neurologic: Denies headache, focal weakness or sensory changes. [] Endocrine: Denies polyuria or polydipsia. [] Lymphatic: Denies swollen glands. [] Psychiatric: Denies depression or anxiety. [] 14 PT ROS OTHERWISE NEG Neurological: Yes Gait Disturbance Physical Exam Physical Exam Constitutional: Obese. Unkempt HENT: Normocephalic, atraumatic, bilateral external ears normal, oropharynx moist, no oral exudates, nose normal. [] Eyes: PERRLA, EOMI, conjunctiva normal, no discharge. [] Neck: Normal range of motion, no tenderness, supple, no stridor. [] Cardiovascular: Tachycardic. No murmurs rubs or gallops noted., IRRR Lungs & Thorax: Bilateral breath sounds clear to auscultation [] Abdomen: soft, no tenderness, no masses, no pulsatile masses. [] Skin: Warm, dry, no erythema, no rash. [] Back: No tenderness, no CVA tenderness. [] Extremities: Slightly increased unilateral swelling of the left lower extremity. Purple skin discoloration noted of the left lower extremity consistent with venous stasis hyperpigmentation. Serous fluid expressed with palpation. Minimal overlying erythema or induration. No crepitus palpated. Plus 2 out of 4 DP pulses bilaterally. Neurologic: Alert and oriented X 3, normal motor function, normal sensory function, no focal deficits noted. [] Psychologic: Affect normal, judgment normal, mood normal. [] General: Alert, Oriented X3, Cooperative, No acute distress HEENT: Mucous membr. moist/pink Lungs: Clear to auscultation, Normal air movement Heart: irregularly irregular Breasts: Not examined Abdomen: Soft Rectal Exam: not examined PELVIC: Examination not indicated Extremities: No cyanosis Neuro: Normal speech, Cranial nerves 3-12 NL Psych/Mental Status: Mental status NL, Mood NL Vitals Vitals Vital Signs Date Time Temp Pulse Resp B/P (MAP) Pulse Ox O2 Delivery O2 Flow Rate FiO2 12/20/19 10:30 98 16 125/89 (101) 96 Room Air 12/20/19 07:24 98.0 98.0 Labs Labs Laboratory Tests Test 12/20/19 07:58 12/20/19 08:01 Glucose (Fingerstick) 176 mg/dL (70-99) White Blood Count 10.1 x10^3/uL (4.0-11.0) Red Blood Count 4.98 x10^6/uL (4.30-5.70) Hemoglobin 11.8 g/dL (13.0-17.5) Hematocrit 36.5 % (39.0-53.0) Mean Corpuscular Volume 73 fL (79-100) Mean Corpuscular Hemoglobin 24 pg (25-35) Mean Corpuscular Hemoglobin Concent 32 g/dL (31-37) Red Cell Distribution Width 19.0 % (11.5-14.5) Platelet Count 269 x10^3/uL (140-400) Neutrophils (%) (Auto) 83 % (31-73) Lymphocytes (%) (Auto) 11 % (24-48) Monocytes (%) (Auto) 5 % (0-9) Eosinophils (%) (Auto) 0 % (0-3) Basophils (%) (Auto) 1 % (0-3) Neutrophils # (Auto) 8.4 x10^3/uL (1.8-7.7) Lymphocytes # (Auto) 1.1 x10^3/uL (1.0-4.8) Monocytes # (Auto) 0.5 x10^3/uL (0.0-1.1) Eosinophils # (Auto) 0.0 x10^3/uL (0.0-0.7) Basophils # (Auto) 0.1 x10^3/uL (0.0-0.2) Prothrombin Time 16.3 SEC (11.7-14.0) Prothromb Time International Ratio 1.4 (0.8-1.1) Sodium Level 137 mmol/L (136-145) Potassium Level 3.7 mmol/L (3.5-5.1) Chloride Level 101 mmol/L (98-107) Carbon Dioxide Level 29 mmol/L (21-32) Anion Gap 7 (6-14) Blood Urea Nitrogen 10 mg/dL (8-26) Creatinine 1.5 mg/dL (0.7-1.3) Estimated GFR (Cockcroft-Gault) 48.2 Glucose Level 161 mg/dL (70-99) Lactic Acid Level 2.1 mmol/L (0.4-2.0) Calcium Level 8.7 mg/dL (8.5-10.1) Magnesium Level 1.8 mg/dL (1.8-2.4) Troponin I Quantitative 0.033 ng/mL (0.000-0.055) YX-Gak-S-Type Natriuretic Peptide 1661 pg/mL (0-124) Laboratory Tests Test 12/20/19 07:58 12/20/19 08:01 Glucose (Fingerstick) 176 mg/dL (70-99) White Blood Count 10.1 x10^3/uL (4.0-11.0) Red Blood Count 4.98 x10^6/uL (4.30-5.70) Hemoglobin 11.8 g/dL (13.0-17.5) Hematocrit 36.5 % (39.0-53.0) Mean Corpuscular Volume 73 fL (79-100) Mean Corpuscular Hemoglobin 24 pg (25-35) Mean Corpuscular Hemoglobin Concent 32 g/dL (31-37) Red Cell Distribution Width 19.0 % (11.5-14.5) Platelet Count 269 x10^3/uL (140-400) Neutrophils (%) (Auto) 83 % (31-73) Lymphocytes (%) (Auto) 11 % (24-48) Monocytes (%) (Auto) 5 % (0-9) Eosinophils (%) (Auto) 0 % (0-3) Basophils (%) (Auto) 1 % (0-3) Neutrophils # (Auto) 8.4 x10^3/uL (1.8-7.7) Lymphocytes # (Auto) 1.1 x10^3/uL (1.0-4.8) Monocytes # (Auto) 0.5 x10^3/uL (0.0-1.1) Eosinophils # (Auto) 0.0 x10^3/uL (0.0-0.7) Basophils # (Auto) 0.1 x10^3/uL (0.0-0.2) Prothrombin Time 16.3 SEC (11.7-14.0) Prothromb Time International Ratio 1.4 (0.8-1.1) Sodium Level 137 mmol/L (136-145) Potassium Level 3.7 mmol/L (3.5-5.1) Chloride Level 101 mmol/L (98-107) Carbon Dioxide Level 29 mmol/L (21-32) Anion Gap 7 (6-14) Blood Urea Nitrogen 10 mg/dL (8-26) Creatinine 1.5 mg/dL (0.7-1.3) Estimated GFR (Cockcroft-Gault) 48.2 Glucose Level 161 mg/dL (70-99) Lactic Acid Level 2.1 mmol/L (0.4-2.0) Calcium Level 8.7 mg/dL (8.5-10.1) Magnesium Level 1.8 mg/dL (1.8-2.4) Troponin I Quantitative 0.033 ng/mL (0.000-0.055) HO-Cfu-O-Type Natriuretic Peptide 1661 pg/mL (0-124) Images Images INDICATION Atrial Fibrillation Morbid Obesity Reason For Test : Rule out Intracardiac Thrombus. PROCEDURE After obtaining informed consent, patient underwent transesophageal echo in the PACU. Type of Sedation : General Anesthesia Sedation was administered by Mali Downey CRNA. Sedation was achieved with Propofol 140 mg intravenously. Transesophageal probe was inserted and advanced into esophagus by Ileana Dill MD. The TL was performed without complications. Synchronized Cardioversion acheived with 360 Joules after 1 attempt(s). Rhythm following Synchronized Cardioversion: Normal Sinus Rhythm Throughout the procedure, the blood pressure, pulse oximetry, cardiac rhythm, and rate were monitored. The patient tolerated the procedure without adverse effects. Recovery from general anesthesia was uneventful and vital signs were stable. LEFT VENTRICLE The systolic function is moderately impaired. EF 40% The septal motion is suggestive of conduction defect. There is global hypokinesis. No left ventricle thrombus noted on this study. RIGHT VENTRICLE The right ventricle is mildly dilated. There is normal right ventricular wall thickness. The right ventricular systolic function is normal. ATRIA The left atrium is moderately dilated. The right atrium is moderately dilated. The interatrial septum is intact with no evidence for an atrial septal defect or patent foramen ovale as noted on 2-D or Doppler imaging. There is no thrombus noted in the left atrial appendage. AORTIC VALVE The aortic valve is normal in structure and function. Doppler and Color Flow revealed no significant aortic regurgitation. There is no significant aortic valvular stenosis. MITRAL VALVE The mitral valve is normal in structure and function. There is no evidence of mitral valve prolapse. There is no mitral valve stenosis. Doppler and Color-flow revealed moderate mitral regurgitation. TRICUSPID VALVE The tricuspid valve is normal in structure and function. Doppler and Color Flow revealed no tricuspid valve regurgitation noted. There is no tricuspid valve prolapse or vegetation. There is no tricuspid valve stenosis. PULMONIC VALVE Not well visualized. GREAT VESSELS The aortic root is normal in size. The IVC is normal in size and collapses >50% with inspiration. Critical Notification Critical Value: No <Conclusion> The systolic function is moderately impaired. EF 40% The septal motion is suggestive of conduction defect. There is global hypokinesis. There is no thrombus noted in the left atrial appendage. Doppler and Color-flow revealed moderate mitral regurgitation. Successful CVN to sinus rhythm Limited TL images only due to respiratory compromise. Signed by : Ileana Dill, Electronically Approved : 01/10/2019 12:42:41 DICTATED and SIGNED BY: ILEANA DILL MD DATE: 01/10/19 1100 Aortic Valve AoV Peak Anselmo. 147.6cm/s AoV VTI 19.3cm AO Peak GR. 8.7mmHg LVOT VTI 13.88cm AO Mean GR. 5mmHg LEVI (VTI) 3.10cm2 LEFT VENTRICLE Technically difficult study. The Left Ventricle is mildly dilated. There is normal left ventricular wall thickness. Left ventricle systolic function is low normal. The ejection fraction is estimated at 50-55%. RIGHT VENTRICLE The right ventricle is mildly dilated. Systolic function is mildly reduced. ATRIA The left atrium is mildly dilated. The right atrium size is normal. The interatrial septum is intact with no evidence for an atrial septal defect or patent foramen ovale as noted on 2-D or Doppler imaging. AORTIC VALVE The aortic valve is not well visualized but appears to be functioning normally by Doppler interrogation. Doppler and Color Flow revealed no significant aortic regurgitation. There is no significant aortic valvular stenosis. MITRAL VALVE The mitral valve is calcified but opens well. There is no evidence of mitral valve prolapse. There is no mitral valve stenosis. Doppler and Color-flow revealed trace mitral regurgitation. TRICUSPID VALVE The tricuspid valve is normal in structure and function. Doppler and Color Flow revealed trace tricuspid valve regurgitation. There is no tricuspid valve stenosis. PULMONIC VALVE The pulmonic valve is not well visualized. Doppler and Color Flow revealed no pulmonic valvular regurgitation. There is no pulmonic valvular stenosis. GREAT VESSELS The aortic root is moderately enlarged at 4.0 cm. The ascending aorta is mildly dilated at 3.5 cm. The IVC was not visualized. PERICARDIAL EFFUSION There is no evidence of significant pericardial effusion. Critical Notification Critical Value: No <Conclusion> Technically difficult study. The Left Ventricle is mildly dilated. Left ventricle systolic function is low normal. The ejection fraction is estimated at 50-55%. There is no significant aortic valvular stenosis. Doppler and Color Flow revealed no significant aortic regurgitation. Doppler and Color-flow revealed trace mitral regurgitation. Doppler and Color Flow revealed trace tricuspid valve regurgitation. The ascending aorta is mildly dilated at 3.5 cm. The aortic root is moderately enlarged at 4.0 cm. Signed by : Jose Steve MD Electronically Approved : 01/09/2019 11:09:47 DICTATED and SIGNED BY: JOSE STEVE MD DATE: 01/09/19 1043 AP chest. HISTORY: Short of breath AP view was taken of the chest. There are old left rib fractures. Heart is upper normal in size. Left lung base is not optimally evaluated. No definite infiltrates are noted. IMPRESSION: 1. Mild cardiac enlargement. 2. No definite infiltrates. Electronically signed by: Doug Jenkins MD (12/20/2019 8:26 AM) [id number] DICTATED and SIGNED BY: DOUG JENKINS MD DATE: 12/20/19825 STUDY: US VENOUS LOWER EXTREMITY LEFT INDICATION: Left lower extremity swelling. TECHNIQUE: Color-flow and pulsed wave duplex ultrasound with compression of venous structures of the left lower extremity. COMPARISON: 01/08/2019. FINDINGS: Duplex ultrasound with compression of the deep venous structures of the left lower extremity from the common femoral vein through the popliteal vein is negative for DVT. The posterior tibial and peroneal veins are segmentally visualized and patent where seen. Normal venous waveforms and augmentation are noted throughout. IMPRESSION: No deep venous thrombosis seen throughout the left lower extremity. Electronically signed by: JUAN M OLMOS MD (12/20/2019 8:13 AM) [id number] DICTATED and SIGNED BY: JUAN M OLMOS MD DATE: 12/20/19812 VTE Prophylaxis Ordered VTE Prophylaxis Devices: No VTE Pharmacological Prophylaxi: Yes Assessment/Plan Assessment/Plan IMPRESSION 1. Left lower extremity cellulitis; as per ID 2. AFIB s/p TL/CVN; heart tones irregular. Was previously on Eliquis, short- term therapy following cardioversion. The systolic function is moderately impaired. EF 40% 12/2018 TL The septal mo tion is suggestive of conduction defect. There is global hypokinesis. Doppler and Color-flow revealed moderate mitral regurgitation. Successful CVN to sinus rhythm Limited TL images only due to respiratory compromise. 3. Hypertension; 4. Chronic diastolic CHF; 5. CKD; Cr SHANDRA 6. Morbid obesity 7. NONCOMPLIANCE due to finincial constraints 8. LLE cellultis 9. Tinea 10. Lymphedema 11. H/o Afib RVR s/p cardioversion 01/10 12. DM plan admit TELE consult cardiology consult ID BLOOD CULTURE DVT PROPHYLAXIS RENAL CONSULT 76 MIN pt exam, chart review, > 50% of time spent with exam, chart review, pt care coordination Justicifation of Admission Dx: Justifications for Admission: Justification of Admission Dx: Yes Acute Renal Failure: RF Can't Be Managed Outpt Cellulitis: Cellulitis LISA COLEY MD Dec 20, 2019 11:48
[2019-12-20] MEDS ORDERED: ONDANSETRON PF 4 MG/2 ML VIAL. IV PRN (12:00)
[2019-12-20] MEDS ORDERED: guaiFENesin ORAL 200 MG/10 ML LIQUID. PO PRN (12:00)
[2019-12-20] MEDS ORDERED: ALBUTEROL SULFATE 2.5 MG/3 ML NEBU. NEB PRN ×2 (12:00→12:30)
[2019-12-20] MEDS ORDERED: DOCUSATE SODIUM 100 MG CAPSULE. PO PRN (12:00)
[2019-12-20] MEDS ORDERED: SODIUM PHOSPHATES 19/7GM 133 ML ENEMA. PR PRN (12:00)
[2019-12-20] MEDS ORDERED: 0.9 % SODIUM CHLORIDE 10 ML DISP.SYRIN. IV PRN (12:00)
[2019-12-20] MEDS ORDERED: cloNIDine HCL 0.1 MG TABLET PO PRN (12:00)
[2019-12-20] MEDS ORDERED: MAG HYDROX/ALUMINUM HYD/SIMETH 30 ML ORAL.SUSP PO PRN (12:00)
[2019-12-20] MEDS ORDERED: ACETAMINOPHEN 325 MG TABLET. PO PRN (12:00)
[2019-12-20] MEDS ORDERED: DEXTROSE 50% 25 GM / 50ML DISP.SYRIN. IV PRN (12:30)
[2019-12-20] MEDS ORDERED: ACETAMINOPHEN/CODEINE 300/30MG TABLET. PO PRN (12:30)
[2019-12-20] MEDS: IV NORMAL SALINE 1000ML BAG 1,000 ML IV SCH (13:41)
[2019-12-20] MEDS: PIPERACILLIN/TAZOBACTAM 3.375 GM in IV NORMAL SALINE 50ML 50 ML IV SCH ×2 (13:41→17:28)
[2019-12-20] MEDS: ASPIRIN 325 MG TABLET PO SCH (13:44)
[2019-12-20] MEDS: FUROSEMIDE 40 MG TABLET. PO SCH (13:45)
[2019-12-20] MEDS: POTASSIUM CHLORIDE 20 MEQ TABLET.ER. PO SCH (13:45)
--- NOTE | 2019-12-20 14:23 | EKG ---
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
--- NOTE | 2019-12-20 14:23 | EKG ---
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
[2019-12-20] MEDS: HEPARIN for SUB-Q USE 5,000 UNIT/ML VIAL. SQ SCH ×2 (15:36→21:45)
--- NOTE | 2019-12-20 15:43 | PDOC2 ---
CHUY NEWSOME EARTH SCIENCE LABORATORY TECHNICIAN 12/20/19 1543: CARDIAC CONSULT DATE OF CONSULT Date of Consult DATE: 12/20/19 TIME: 15:35 REASON FOR CONSULT Reason for Consult: AFIB REFERRING PHYSICIAN Referring Physician: Fullbright SOURCE Source: Chart review, Patient HISTORY OF PRESENT ILLNESS HISTORY OF PRESENT ILLNESS This is a 59 yo male admitted for complains of leg pain. He is known for venous insufficiency with stasis dermatitis. Furhter check noted with LLE cellulitis to which ID is now seeing him. The swelling has gotten worse as well. He also has not been taking his medications regularly due to financial constraints. He is currently homeless and living at his friends. Denies any chest pain or SOA. No anticoagulation therapy. He is known for this with last yrs cardioversion. Consult is for AFIB. Presently pt denies any palpitations and currently maintaing SR with PACs and no definitive AFIB at this time. The last time he took his regular medications was 3 months after his 02/2019 hospital admissions. He has not see any outpt clinic citing due to financial constraints. PAST MEDICAL HISTORY Cardiovascular: AFIB, CHF, HTN, Other (dilated cardiomyopathy; venous insufficiency and cellulitis) GI: Peptic Ulcer disease Psych: Anxiety Renal/: Chronic renal insuff Endocrine: Diabetes PAST SURGICAL HISTORY Past Surgical History Repair for scalp laceration, right elbow laceration Past Surgical History: Hernia Repair (multiple ventral repair with mesh) FAMILY HISTORY Family History: Coronary Artery Disease (father) SOCIAL HISTORY Smoke: No ALCOHOL: none Lives: Friends CURRENT MEDICATIONS CURRENT MEDICATIONS Current Medications Medications (Trade) Dose Ordered Sig/Masood Route PRN Reason Start Time Stop Time Status Last Admin Dose Admin Cephalexin HCl (Keflex) 1,000 mg 1X PO 12/20/19 07:45 12/20/19 08:43 Sodium Chloride 1,000 ml @ 500 mls/hr 1X ONCE IV 12/20/19 08:30 12/20/19 10:29 DC 12/20/19 08:30 Sodium Chloride 1,000 ml @ 100 mls/hr Q10H IV 12/20/19 11:48 12/20/19 13:41 Piperacillin Sod/ Tazobactam Sod 3.375 gm/Sodium Chloride 50 ml @ 100 mls/hr Q6HRS IV 12/20/19 12:00 12/20/19 13:41 Aspirin (Jailyn Aspirin) 325 mg DAILY PO 12/20/19 13:00 12/20/19 13:44 Furosemide (Lasix) 40 mg DAILY PO 12/20/19 13:00 12/20/19 13:45 Potassium Chloride (Klor-Con) 20 meq DAILYWBKFT PO 12/20/19 13:00 12/20/19 13:45 ALLERGIES ALLERGIES: Coded Allergies: ciprofloxacin (Verified Allergy, Severe, 03/09/19) lip swelling doxycycline (Verified Allergy, Severe, 03/09/19) lip swelling ROS Review of System 14 point ROS evaluated with pertinent positives noted per HPI PHYSICAL EXAM General: Alert, Oriented X3, Cooperative, No acute distress HEENT: Atraumatic, Mucous membr. moist/pink Lungs: Clear to auscultation, Normal air movement Heart: Other (SR with PACs; distant heart sounds) Abdomen: Soft, Other (obesity) Extremities: No cyanosis, Other (2+ bilateral LE pitting edema) Skin: Other (LLE stasis dermatitis with erythema) Neuro: Normal speech, Sensation intact Psych/Mental Status: Mental status NL, Mood NL MUSCULOSKELETAL: Osteoarthritic changes both hands VITALS/I&O VITALS/I&O: Vital Signs Date Time Temp Pulse Resp B/P (MAP) Pulse Ox O2 Delivery O2 Flow Rate FiO2 12/20/19 12:40 104 15 126/87 (100) 92 Room Air 12/20/19 07:24 98.0 98.0 LABS Lab: Laboratory Tests Test 12/20/19 07:58 12/20/19 08:01 12/20/19 12:40 Glucose (Fingerstick) 176 mg/dL (70-99) H White Blood Count 10.1 x10^3/uL (4.0-11.0) Red Blood Count 4.98 x10^6/uL (4.30-5.70) Hemoglobin 11.8 g/dL (13.0-17.5) L Hematocrit 36.5 % (39.0-53.0) L Mean Corpuscular Volume 73 fL (79-100) L Mean Corpuscular Hemoglobin 24 pg (25-35) L Mean Corpuscular Hemoglobin Concent 32 g/dL (31-37) Red Cell Distribution Width 19.0 % (11.5-14.5) H Platelet Count 269 x10^3/uL (140-400) Neutrophils (%) (Auto) 83 % (31-73) H Lymphocytes (%) (Auto) 11 % (24-48) L Monocytes (%) (Auto) 5 % (0-9) Eosinophils (%) (Auto) 0 % (0-3) Basophils (%) (Auto) 1 % (0-3) Neutrophils # (Auto) 8.4 x10^3/uL (1.8-7.7) H Lymphocytes # (Auto) 1.1 x10^3/uL (1.0-4.8) Monocytes # (Auto) 0.5 x10^3/uL (0.0-1.1) Eosinophils # (Auto) 0.0 x10^3/uL (0.0-0.7) Basophils # (Auto) 0.1 x10^3/uL (0.0-0.2) Prothrombin Time 16.3 SEC (11.7-14.0) H Prothrombin Time INR 1.4 (0.8-1.1) H Sodium Level 137 mmol/L (136-145) Potassium Level 3.7 mmol/L (3.5-5.1) Chloride Level 101 mmol/L (98-107) Carbon Dioxide Level 29 mmol/L (21-32) Anion Gap 7 (6-14) Blood Urea Nitrogen 10 mg/dL (8-26) Creatinine 1.5 mg/dL (0.7-1.3) H Estimated GFR (Cockcroft-Gault) 48.2 Glucose Level 161 mg/dL (70-99) H Lactic Acid Level 2.1 mmol/L (0.4-2.0) H 2.2 mmol/L (0.4-2.0) H Calcium Level 8.7 mg/dL (8.5-10.1) Magnesium Level 1.8 mg/dL (1.8-2.4) Troponin I Quantitative 0.033 ng/mL (0.000-0.055) NZ-Iwp-I-Type Natriuretic Peptide 1661 pg/mL (0-124) H Laboratory Tests 12/20/19 08:01 Laboratory Tests 12/20/19 08:01 ECHOCARDIOGRAM ECHOCARDIOGRAM <Conclusion> TL The systolic function is moderately impaired. EF 40% The septal motion is suggestive of conduction defect. There is global hypokinesis. There is no thrombus noted in the left atrial appendage. Doppler and Color-flow revealed moderate mitral regurgitation. Successful CVN to sinus rhythm Limited TL images only due to respiratory compromise. DATE: 01/10/19 1100 <Conclusion> TTE Technically difficult study. The Left Ventricle is mildly dilated. Left ventricle systolic function is low normal. The ejection fraction is estimated at 50-55%. There is no significant aortic valvular stenosis. Doppler and Color Flow revealed no significant aortic regurgitation. Doppler and Color-flow revealed trace mitral regurgitation. Doppler and Color Flow revealed trace tricuspid valve regurgitation. The ascending aorta is mildly dilated at 3.5 cm. The aortic root is moderately enlarged at 4.0 cm. 01/09/2019 11:09:47 ASSESSMENT/PLAN ASSESSMENT/PLAN 1. Recurrent LLE celluitis: ID following 2. Venous insufficiency 3. Known PAFIB: past TL/CVN, treated with limited eliquis in the past. Presently maintaining SR with PACs. 4. Hx of dilated Cardiomyopathy: presumed NICM 5. HTN: controlled 6. Homeless/Noncompliance: due to financial constraints, lives with friends. has not take full med list for several months 7. Morbid obesity 8. DM2: per PCP 9. Chronic diastolic/systolic CHF: compensated Recommendations 1. Continue metoprolol. regular dose ECSA for stroke prevention. Would not be able to afford NOAC. Lasix therapy. 2. Continue antibiotic treatment per ID 3. Supportive care, Discussed compliance. 4. SS consult. JOSE SUMNER MD 12/21/19 0903: CARDIAC CONSULT ASSESSMENT/PLAN ASSESSMENT/PLAN Patient seen and examined on 12/20/19 Discussed with our nurse practitioner. Agree with his assessment and plan as above. Lower extremity cellulitis. Progressive. Venous insufficiency. Being reviewed by infectious disease. History of paroxysmal atrial fibrillation. Continuing on aspirin. On beta- blockers. Continue telemetry. Chronic systolic heart failure. Reasonably compensated. Echo as above. Diabetes mellitus. As per the primary service. Morbid obesity. CHUY NEWSOME EARTH SCIENCE LABORATORY TECHNICIAN Dec 20, 2019 15:43 JOSE SUMNER MD Dec 21, 2019 09:03
[2019-12-20] MEDS: INSULIN LISPRO 300 UNITS/3 ML VIAL. SQ SCH (16:42)
[2019-12-20 18:48] LABS: BILIRUBIN,URINE NEGATIVE (NEG); CLARITY,URINE CLEAR; COLOR,URINE YELLOW; NITRITE,URINE NEGATIVE (NEG); PROTEIN,URINE NEGATIVE (NEG-TRACE)
[2019-12-20 18:51] LABS: SQUAMOUS EPITHELIAL CELL,UR FEW /LPF
[2019-12-20 18:53] LABS: BACTERIA,URINE FEW /HPF (0-FEW)
[2019-12-20 18:54] LABS: RBC,URINE 0 /HPF (0-2); WBC,URINE 0 /HPF (0-4)
[2019-12-20 19:00] VITALS: BP 103/66
[2019-12-20] MEDS ORDERED: METOPROLOL TART IMMED RELEASE 25 MG TABLET. PO SCH (21:00)
[2019-12-20] MEDS: INSULIN GLARGINE SYRINGE. SQ SCH (21:44)
[2019-12-20 23:00] VITALS: BP 104/49
[2019-12-21] MEDS: PIPERACILLIN/TAZOBACTAM 3.375 GM in IV NORMAL SALINE 50ML 50 ML IV SCH ×4 (00:20→17:38)
[2019-12-21] MEDS: IV NORMAL SALINE 1000ML BAG 1,000 ML IV SCH ×3 (00:20→19:00)
[2019-12-21 03:00] VITALS: BP 99/58
[2019-12-21] MEDS: HEPARIN for SUB-Q USE 5,000 UNIT/ML VIAL. SQ SCH ×4 (05:58→21:46)
[2019-12-21 07:00] VITALS: BP 122/59
[2019-12-21 07:50] LABS: CALCIUM 8.2 mg/dL (8.5-10.1); CREATININE 1.3 mg/dL (0.7-1.3); GFR 56.9; POTASSIUM 3.8 mmol/L (3.5-5.1)
[2019-12-21 08:08] LABS: BASO % 1 % (0-3); EOS # 0.1 x10^3/uL (0.0-0.7); EOS % 2 % (0-3); HEMOGLOBIN 10.6 g/dL (13.0-17.5); LYMPH # 1.1 x10^3/uL (1.0-4.8); LYMPH % 12 % (24-48); MEAN CORPUSCULAR HEMOGLOBIN 23 pg (25-35); MEAN CORPUSCULAR HGB CONC 31 g/dL (31-37); MEAN CORPUSCULAR VOLUME 74 fL (79-100); MONO # 0.5 x10^3/uL (0.0-1.1); MONO % 5 % (0-9); NEUT # 7.5 x10^3/uL (1.8-7.7); NEUT % 81 % (31-73); PLATELET COUNT 240 x10^3/uL (140-400); RED BLOOD COUNT 4.58 x10^6/uL (4.30-5.70); RED CELL DISTRIBUTION WIDTH 19.5 % (11.5-14.5); WHITE BLOOD COUNT 9.3 x10^3/uL (4.0-11.0)
[2019-12-21] MEDS ORDERED: METOPROLOL TART IMMED RELEASE 25 MG TABLET. PO SCH (09:00)
--- NOTE | 2019-12-21 09:12 | PDOC2 ---
CONSULT Date of Consult Date of Consult DATE: 12/21/19 TIME: 09:11 Reason for Consult Reason for Consult: SHANDRA History of Present Illness Reason for Visit: Patient is a 59-year-old CM with PMH atrial fibrillation, hypertension, diabetes, chronic venous stasis in lower extremities who presents with a chief complaint of left lower extremity pain. Patient states he has had swelling to the left lower extremity for the past several months. He states that the discomfort increased over the past few days. He noted purple discoloration in his left lower extremity for several months as well. He also reports drainage from his left lower extremity. He has several medical problems and has not been taking medication because he cannot afford them as he has issues with obtaining medical insurance. He states he is currently living at a house with friends. 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 He denies any chest pain or SOB. No F/C. Denies any N/V/D. He reports decreased intake of food and fluids. States now he is very hungry . Denies any falls or trauma. Denies tobacco or alcohol abuse. Denies any drug use. Denies any urinary complaints . Denies use of NSAID's Past Medical History Cardiovascular: AFIB, CHF, HTN, Other (dilated cardiomyopathy; venous insufficiency and cellulitis) Pulmonary: No pertinent hx GI: Peptic Ulcer disease Heme/Onc: Anemia NOS Hepatobiliary: No pertinent hx Psych: Anxiety Rheumatologic: No pertinent hx Infectious disease: No pertinent hx Renal/: Chronic renal insuff Endocrine: Diabetes Past Surgical History Past Surgical History: Hernia Repair (multiple ventral repair with mesh) Family History Family History: Coronary Artery Disease (father) Social History No ALCOHOL: none Lives: Friends Current Problem List Problem List Problems Medical Problems: (1) SHANDRA (acute kidney injury) Status: Acute (2) Diabetes Status: Acute (3) Lactic acidemia Status: Acute (4) Nonadherence to medication Status: Acute (5) Obesity Status: Acute Current Medications Current Medications Current Medications Furosemide (Lasix) 40 mg 1X ONCE IVP ; Start 12/20/19 at 07:45; Stop 12/20/19 at 08:21; Status DC Metoprolol Tartrate (Lopressor) 25 mg 1X ONCE PO ; Start 12/20/19 at 07:45; Stop 12/20/19 at 08:21; Status DC Cephalexin HCl (Keflex) 1,000 mg 1X PO Last administered on 12/20/19at 08:43; Start 12/20/19 at 07:45 Sodium Chloride 1,000 ml @ 500 mls/hr 1X ONCE IV Last administered on 12/20/19at 08:30; Start 12/20/19 at 08:30; Stop 12/20/19 at 10:29; Status DC Sodium Chloride (Normal Saline Flush) 3 ml QSHIFT PRN IV AFTER MEDS AND BLOOD DRAWS; Start 12/20/19 at 12:00 Sodium Chloride 1,000 ml @ 100 mls/hr Q10H IV Last administered on 12/21/19at 00:20; Start 12/20/19 at 11:48 Ondansetron HCl (Zofran) 4 mg PRN Q4HRS PRN IV NAUSEA/VOMITING; Start 12/20/19 at 12:00 Acetaminophen (Tylenol) 650 mg PRN Q4HRS PRN PO TEMP OVER 100.4F OR MILD PAIN Last administered on 12/21/19at 00:25; Start 12/20/19 at 12:00 Al Hydroxide/Mg Hydroxide (Mylanta Plus Xs) 30 ml PRN DAILY PRN PO HEARTBURN / GAS; Start 12/20/19 at 12:00 Clonidine HCl (Catapres) 0.1 mg PRN Q6HRS PRN PO SBP>160 OR DBP>90; Start 12/20/19 at 12:00 Sodium Monofluorophosphate (Fleet Adult) 133 ml PRN DAILY PRN AR CONSTIPATION; Start 12/20/19 at 12:00 Docusate Sodium (Colace) 100 mg PRN BID PRN PO HARD STOOLS; Start 12/20/19 at 12:00 Albuterol Sulfate (Ventolin Neb Soln) 2.5 mg PRN Q4HRS PRN NEB SHORTNESS OF BREATH; Start 12/20/19 at 12:00 Guaifenesin (Robitussin) 200 mg PRN Q4HRS PRN PO COUGH; Start 12/20/19 at 12:00 Heparin Sodium (Porcine) (Heparin Sodium) 5,000 unit Q8HRS SQ Last administered on 12/21/19at 06:06; Start 12/20/19 at 14:00 Piperacillin Sod/ Tazobactam Sod 3.375 gm/Sodium Chloride 50 ml @ 100 mls/hr Q6HRS IV Last administered on 12/21/19at 05:57; Start 12/20/19 at 12:00 Insulin Human Lispro (HumaLOG) 0-5 UNITS TIDWMEALS SQ ; Start 12/20/19 at 17:00 Dextrose (Dextrose 50%-Water Syringe) 12.5 gm PRN Q15MIN PRN IV SEE COMMENTS; Start 12/20/19 at 12:30 Acetaminophen/ Codeine Phosphate (Tylenol #3) 1 tab PRN Q6HRS PRN PO MODERATE TO SEVERE PAIN; Start 12/20/19 at 12:30 Albuterol Sulfate (Ventolin Neb Soln) 2.5 mg PRN Q4HRS PRN NEB SHORTNESS OF BREATH; Start 12/20/19 at 12:30; Status UNV Aspirin (Jailyn Aspirin) 325 mg DAILY PO Last administered on 12/20/19at 13:44; Start 12/20/19 at 13:00 Furosemide (Lasix) 40 mg DAILY PO Last administered on 12/20/19at 13:45; Start 12/20/19 at 13:00 Insulin Glargine (Lantus Syringe) 8 unit QHS SQ Last administered on 12/20/19at 21:44; Start 12/20/19 at 21:00 Metoprolol Tartrate (Lopressor) 25 mg BID PO ; Start 12/20/19 at 21:00; Stop 12/21/19 at 08:35; Status DC Potassium Chloride (Klor-Con) 20 meq DAILYWBKFT PO Last administered on 12/20/19at 13:45; Start 12/20/19 at 13:00 Metoprolol Tartrate (Lopressor) 12.5 mg BID PO ; Start 12/21/19 at 09:00 Active Scripts Active Proair Hfa (Albuterol Sulfate) 8.5 Gm Hfa.aer.ad 2.5 Mg NEB PRN Q4HRS PRN 30 Days Metformin Hcl 500 Mg Tablet 500 Mg PO BIDWMEALS 30 Days Acetaminophen-Cod #3 Tablet (Acetaminophen/Codeine Phosphate) 1 Each Tablet 1 Tab PO PRN Q6HRS PRN 6 Days Aspirin 325 Mg Tablet 1 Tab PO DAILY 90 Days Metoprolol Tartrate 25 Mg Tablet 25 Mg PO BID 90 Days Lantus (Insulin Glargine,Hum.rec.anlog) 100 Unit/1 Ml Vial 8 Unit SQ QHS 30 Days Klor-Con M20 (Potassium Chloride) 20 Meq Tab.er.prt 20 Meq PO DAILYWBKFT Furosemide 40 Mg Tablet 40 Mg PO DAILY Allergies Allergies: Coded Allergies: ciprofloxacin (Verified Allergy, Severe, 03/09/19) lip swelling doxycycline (Verified Allergy, Severe, 03/09/19) lip swelling ROS Review of System PER HPI REST OF THE ros IS NEGATIVE Physical Exam Physical Exam General: No acute distress, Morbidly Obese HEENT: Mucous membr. moist/pink Neck Supple, Thick Lungs: Clear to auscultation, Non labored Heart: distant heart sounds Abdomen: Soft, Obese Extremities: 1-2+ bilateral LE edema, changes ov Venous stasis Lt >Rt Skin: stasis dermatitis with erythema Lt Neuro: Grossly normal Psych/Mental Status: Mental status NL, Mood NL No Vega, No CVA or SP tenderness Vital Signs Vital Signs Date Time Temp Pulse Resp B/P (MAP) Pulse Ox O2 Delivery O2 Flow Rate FiO2 12/21/19 03:00 98.2 61 20 99/58 (72) 93 Room Air 98.2 Assessment & Plan SHANDRA - suspect Pre-renal, BP low, Improving with IVF E-Lytes stable, UA unremarkable, No Overt proteinuria or Micr hematuria, Cu rrently on Lasix Supportive care, Avoid Nephrotoxins, I/O, CKD 2/3- Baseline Cr 1.1-1.3 Presumably sec to HTN , DM, Cardiorenal Recurrent LLE celluitis: ID following Venous insufficiency Hx of PAFIB: past TL Hx of dilated Cardiomyopathy: presumed NICM HTN: controlled, BP lower , Monitor Homeless/Noncompliance: due to financial constraints, lives with friends. has not take full med list for several months Morbid obesity DM2: per PCP Chronic diastolic/systolic CHF: compensated Labs Labs Laboratory Tests Test 12/20/19 07:58 12/20/19 08:01 12/20/19 12:40 12/20/19 16:38 Glucose (Fingerstick) 176 mg/dL (70-99) 91 mg/dL (70-99) White Blood Count 10.1 x10^3/uL (4.0-11.0) Red Blood Count 4.98 x10^6/uL (4.30-5.70) Hemoglobin 11.8 g/dL (13.0-17.5) Hematocrit 36.5 % (39.0-53.0) Mean Corpuscular Volume 73 fL (79-100) Mean Corpuscular Hemoglobin 24 pg (25-35) Mean Corpuscular Hemoglobin Concent 32 g/dL (31-37) Red Cell Distribution Width 19.0 % (11.5-14.5) Platelet Count 269 x10^3/uL (140-400) Neutrophils (%) (Auto) 83 % (31-73) Lymphocytes (%) (Auto) 11 % (24-48) Monocytes (%) (Auto) 5 % (0-9) Eosinophils (%) (Auto) 0 % (0-3) Basophils (%) (Auto) 1 % (0-3) Neutrophils # (Auto) 8.4 x10^3/uL (1.8-7.7) Lymphocytes # (Auto) 1.1 x10^3/uL (1.0-4.8) Monocytes # (Auto) 0.5 x10^3/uL (0.0-1.1) Eosinophils # (Auto) 0.0 x10^3/uL (0.0-0.7) Basophils # (Auto) 0.1 x10^3/uL (0.0-0.2) Prothrombin Time 16.3 SEC (11.7-14.0) Prothromb Time International Ratio 1.4 (0.8-1.1) Sodium Level 137 mmol/L (136-145) Potassium Level 3.7 mmol/L (3.5-5.1) Chloride Level 101 mmol/L (98-107) Carbon Dioxide Level 29 mmol/L (21-32) Anion Gap 7 (6-14) Blood Urea Nitrogen 10 mg/dL (8-26) Creatinine 1.5 mg/dL (0.7-1.3) Estimated GFR (Cockcroft-Gault) 48.2 Glucose Level 161 mg/dL (70-99) Lactic Acid Level 2.1 mmol/L (0.4-2.0) 2.2 mmol/L (0.4-2.0) Calcium Level 8.7 mg/dL (8.5-10.1) Magnesium Level 1.8 mg/dL (1.8-2.4) Troponin I Quantitative 0.033 ng/mL (0.000-0.055) OZ-Los-O-Type Natriuretic Peptide 1661 pg/mL (0-124) Test 12/20/19 17:30 12/20/19 20:49 12/21/19 06:00 12/21/19 07:13 Urine Collection Type Unknown Urine Color Yellow Urine Clarity Clear Urine pH 5.0 (<5.0-8.0) Urine Specific [place] 1.015 (1.000-1.030) Urine Protein Negative mg/dL (NEG-TRACE) Urine Glucose (UA) Negative mg/dL (NEG) Urine Ketones (Stick) Negative mg/dL (NEG) Urine Blood Negative (NEG) Urine Nitrite Negative (NEG) Urine Bilirubin Negative (NEG) Urine Urobilinogen Dipstick 1.0 mg/dL (0.2 mg/dL) Urine Leukocyte Esterase Negative (NEG) Urine RBC 0 /HPF (0-2) Urine WBC 0 /HPF (0-4) Urine Squamous Epithelial Cells Few /LPF Urine Bacteria Few /HPF (0-FEW) Urine Mucus Slight /LPF Glucose (Fingerstick) 142 mg/dL (70-99) 154 mg/dL (70-99) White Blood Count 9.3 x10^3/uL (4.0-11.0) Red Blood Count 4.58 x10^6/uL (4.30-5.70) Hemoglobin 10.6 g/dL (13.0-17.5) Hematocrit 34.0 % (39.0-53.0) Mean Corpuscular Volume 74 fL (79-100) Mean Corpuscular Hemoglobin 23 pg (25-35) Mean Corpuscular Hemoglobin Concent 31 g/dL (31-37) Red Cell Distribution Width 19.5 % (11.5-14.5) Platelet Count 240 x10^3/uL (140-400) Neutrophils (%) (Auto) 81 % (31-73) Lymphocytes (%) (Auto) 12 % (24-48) Monocytes (%) (Auto) 5 % (0-9) Eosinophils (%) (Auto) 2 % (0-3) Basophils (%) (Auto) 1 % (0-3) Neutrophils # (Auto) 7.5 x10^3/uL (1.8-7.7) Lymphocytes # (Auto) 1.1 x10^3/uL (1.0-4.8) Monocytes # (Auto) 0.5 x10^3/uL (0.0-1.1) Eosinophils # (Auto) 0.1 x10^3/uL (0.0-0.7) Basophils # (Auto) 0.0 x10^3/uL (0.0-0.2) Sodium Level 138 mmol/L (136-145) Potassium Level 3.8 mmol/L (3.5-5.1) Chloride Level 102 mmol/L (98-107) Carbon Dioxide Level 29 mmol/L (21-32) Anion Gap 7 (6-14) Blood Urea Nitrogen 10 mg/dL (8-26) Creatinine 1.3 mg/dL (0.7-1.3) Estimated GFR (Cockcroft-Gault) 56.9 Glucose Level 127 mg/dL (70-99) Calcium Level 8.2 mg/dL (8.5-10.1) Laboratory Tests Test 12/20/19 12:40 12/20/19 16:38 12/20/19 17:30 12/20/19 20:49 Lactic Acid Level 2.2 mmol/L (0.4-2.0) Glucose (Fingerstick) 91 mg/dL (70-99) 142 mg/dL (70-99) Urine Collection Type Unknown Urine Color Yellow Urine Clarity Clear Urine pH 5.0 (<5.0-8.0) Urine Specific [place] 1.015 (1.000-1.030) Urine Protein Negative mg/dL (NEG-TRACE) Urine Glucose (UA) Negative mg/dL (NEG) Urine Ketones (Stick) Negative mg/dL (NEG) Urine Blood Negative (NEG) Urine Nitrite Negative (NEG) Urine Bilirubin Negative (NEG) Urine Urobilinogen Dipstick 1.0 mg/dL (0.2 mg/dL) Urine Leukocyte Esterase Negative (NEG) Urine RBC 0 /HPF (0-2) Urine WBC 0 /HPF (0-4) Urine Squamous Epithelial Cells Few /LPF Urine Bacteria Few /HPF (0-FEW) Urine Mucus Slight /LPF Test 12/21/19 06:00 12/21/19 07:13 White Blood Count 9.3 x10^3/uL (4.0-11.0) Red Blood Count 4.58 x10^6/uL (4.30-5.70) Hemoglobin 10.6 g/dL (13.0-17.5) Hematocrit 34.0 % (39.0-53.0) Mean Corpuscular Volume 74 fL (79-100) Mean Corpuscular Hemoglobin 23 pg (25-35) Mean Corpuscular Hemoglobin Concent 31 g/dL (31-37) Red Cell Distribution Width 19.5 % (11.5-14.5) Platelet Count 240 x10^3/uL (140-400) Neutrophils (%) (Auto) 81 % (31-73) Lymphocytes (%) (Auto) 12 % (24-48) Monocytes (%) (Auto) 5 % (0-9) Eosinophils (%) (Auto) 2 % (0-3) Basophils (%) (Auto) 1 % (0-3) Neutrophils # (Auto) 7.5 x10^3/uL (1.8-7.7) Lymphocytes # (Auto) 1.1 x10^3/uL (1.0-4.8) Monocytes # (Auto) 0.5 x10^3/uL (0.0-1.1) Eosinophils # (Auto) 0.1 x10^3/uL (0.0-0.7) Basophils # (Auto) 0.0 x10^3/uL (0.0-0.2) Sodium Level 138 mmol/L (136-145) Potassium Level 3.8 mmol/L (3.5-5.1) Chloride Level 102 mmol/L (98-107) Carbon Dioxide Level 29 mmol/L (21-32) Anion Gap 7 (6-14) Blood Urea Nitrogen 10 mg/dL (8-26) Creatinine 1.3 mg/dL (0.7-1.3) Estimated GFR (Cockcroft-Gault) 56.9 Glucose Level 127 mg/dL (70-99) Calcium Level 8.2 mg/dL (8.5-10.1) Glucose (Fingerstick) 154 mg/dL (70-99) Review All relevant outside records, renal labs, imaging studies, telemetry/EKG's were reviewed. Images Images MPRESSION: 1. Mild cardiac enlargement. 2. No definite infiltrates. KARL GUERRA MD Dec 21, 2019 09:11
[2019-12-21] MEDS: ASPIRIN 325 MG TABLET PO SCH (09:26)
[2019-12-21] MEDS: POTASSIUM CHLORIDE 20 MEQ TABLET.ER. PO SCH (09:26)
[2019-12-21] MEDS: FUROSEMIDE 40 MG TABLET. PO SCH (09:27)
[2019-12-21] MEDS: INSULIN LISPRO 300 UNITS/3 ML VIAL. SQ SCH ×3 (09:33→17:00)
--- NOTE | 2019-12-21 10:03 | NUR ---
SW following. Discussed with RN, pt from home (lives with friends), ada diet, room air. PT/OT recommending home. SW consult for no insurance, no PCP and unable to afford medications. SW left voicemail for Med Assist requesting call back after pt has been screened to determine if qualifies for medicaid. ID consult, SW will continue to follow.
--- NOTE | 2019-12-21 10:45 | PDOC ---
PROGRESS NOTES Date of Service: DATE: 12/21/19 TIME: 10:44 Chief Complaint Chief Complaint VTE Prophylaxis Ordered VTE Prophylaxis Devices: No VTE Pharmacological Prophylaxi: Yes Assessment/Plan Assessment/Plan IMPRESSION 1. Left lower extremity cellulitis; as per ID 2. AFIB s/p TL/CVN; heart tones irregular. Was previously on Eliquis, short- term therapy following cardioversion. The systolic function is moderately impaired. EF 40% 12/2018 TL The septal motion is suggestive of conduction defect. There is global hypokinesis. Doppler and Color-flow revealed moderate mitral regurgitation. Successful CVN to sinus rhythm Limited TL images only due to respiratory compromise. 3. Hypertension; 4. Chronic diastolic CHF; 5. CKD; Cr SHANDRA 6. Morbid obesity 7. NONCOMPLIANCE due to finincial constraints 8. LLE cellultis 9. Tinea 10. Lymphedema 11. H/o Afib RVR s/p cardioversion 01/10 12. DM plan admit TELE consult cardiology consult ID BLOOD CULTURE DVT PROPHYLAXIS RENAL CONSULT 37 MIN pt exam, chart review, > 50% of time spent with exam, chart review, pt care coordination Justicifation of Admission Dx: Justicifation of Admission Dx: Justifications for Admission: Justification of Admission Dx: Yes Acute Renal Failure: RF Can't Be Managed Outpt Cellulitis: Cellulitis History of Present Illness History of Present Illness Identification/Chief Complaint Chief Complaint SEEN IN ER WITH A -FIB, FLUTTER, SHANDRA, Unable to afford his medication, does not have a PCP , 59-year-old male with PMH atrial fibrillation, hypertension, diabetes, chronic venous stasis in lower extremities who presents with a chief complaint of left lower extremity pain. Patient states he has had swelling to the left lower extremity for the past several months. He states that the discomfort increased over the past few days. He states he has noted purple discoloration in his left lower extremity for several months as well. He does note drainage from his left lower extremity. He states it is clear in nature. States the reason he presented today because the pain seemed to have increased over the past couple of days. He does note that he has several medical problems and has not been taking medication because he cannot afford them. He states he has issues with obtaining medical insurance. He states he is currently living at a house with friends. 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 He denies any chest pain. He does note some shortness of breath with exertion Past Medical History Past Medical History Past Medical History Past Medical History: A-Fib, CHF, Depression, Diabetes-Type II, Hypertension, Other Additional Past Medical Histor: CELLULITIS Past Surgical History: Other Additional Past Surgical Histo: HERNIA, R ARM TENDON REPAIR Smoking Status: Never Smoker Alcohol Use: None Drug Use: None Vitals Vitals Vital Signs Date Time Temp Pulse Resp B/P (MAP) Pulse Ox O2 Delivery O2 Flow Rate FiO2 12/21/19 09:00 61 99/58 12/21/19 07:00 98.0 16 98 Room Air 98.0 Physical Exam General: Alert, Oriented X3, Cooperative, No acute distress Heart: Other (SR with PACs; distant heart sounds) Lungs: Other Abdomen: Soft, Other (obesity) Extremities: No cyanosis, Other (2+ bilateral LE pitting edema) Skin: Other (LLE stasis dermatitis with erythema) Labs LABS Laboratory Tests Test 12/20/19 12:40 12/20/19 16:38 12/20/19 17:30 12/20/19 20:49 Lactic Acid Level 2.2 mmol/L (0.4-2.0) Glucose (Fingerstick) 91 mg/dL (70-99) 142 mg/dL (70-99) Urine Collection Type Unknown Urine Color Yellow Urine Clarity Clear Urine pH 5.0 (<5.0-8.0) Urine Specific [place] 1.015 (1.000-1.030) Urine Protein Negative mg/dL (NEG-TRACE) Urine Glucose (UA) Negative mg/dL (NEG) Urine Ketones (Stick) Negative mg/dL (NEG) Urine Blood Negative (NEG) Urine Nitrite Negative (NEG) Urine Bilirubin Negative (NEG) Urine Urobilinogen Dipstick 1.0 mg/dL (0.2 mg/dL) Urine Leukocyte Esterase Negative (NEG) Urine RBC 0 /HPF (0-2) Urine WBC 0 /HPF (0-4) Urine Squamous Epithelial Cells Few /LPF Urine Bacteria Few /HPF (0-FEW) Urine Mucus Slight /LPF Test 12/21/19 06:00 12/21/19 07:13 White Blood Count 9.3 x10^3/uL (4.0-11.0) Red Blood Count 4.58 x10^6/uL (4.30-5.70) Hemoglobin 10.6 g/dL (13.0-17.5) Hematocrit 34.0 % (39.0-53.0) Mean Corpuscular Volume 74 fL (79-100) Mean Corpuscular Hemoglobin 23 pg (25-35) Mean Corpuscular Hemoglobin Concent 31 g/dL (31-37) Red Cell Distribution Width 19.5 % (11.5-14.5) Platelet Count 240 x10^3/uL (140-400) Neutrophils (%) (Auto) 81 % (31-73) Lymphocytes (%) (Auto) 12 % (24-48) Monocytes (%) (Auto) 5 % (0-9) Eosinophils (%) (Auto) 2 % (0-3) Basophils (%) (Auto) 1 % (0-3) Neutrophils # (Auto) 7.5 x10^3/uL (1.8-7.7) Lymphocytes # (Auto) 1.1 x10^3/uL (1.0-4.8) Monocytes # (Auto) 0.5 x10^3/uL (0.0-1.1) Eosinophils # (Auto) 0.1 x10^3/uL (0.0-0.7) Basophils # (Auto) 0.0 x10^3/uL (0.0-0.2) Sodium Level 138 mmol/L (136-145) Potassium Level 3.8 mmol/L (3.5-5.1) Chloride Level 102 mmol/L (98-107) Carbon Dioxide Level 29 mmol/L (21-32) Anion Gap 7 (6-14) Blood Urea Nitrogen 10 mg/dL (8-26) Creatinine 1.3 mg/dL (0.7-1.3) Estimated GFR (Cockcroft-Gault) 56.9 Glucose Level 127 mg/dL (70-99) Calcium Level 8.2 mg/dL (8.5-10.1) Glucose (Fingerstick) 154 mg/dL (70-99) Assessment and Plan Assessmemt and Plan IMPRESSION 1. Left lower extremity cellulitis; as per ID 2. AFIB s/p TL/CVN; heart tones irregular. Was previously on Eliquis, short- term therapy following cardioversion. The systolic function is moderately impaired. EF 40% 12/2018 TL The septal motion is suggestive of conduction defect. There is global hypokinesis. Doppler and Color-flow revealed moderate mitral regurgitation. Successful CVN to sinus rhythm Limited TL images only due to respiratory compromise. 3. Hypertension; 4. Chronic diastolic CHF; 5. CKD; Cr SHANDRA 6. Morbid obesity 7. NONCOMPLIANCE due to finincial constraints 8. LLE cellultis 9. Tinea 10. Lymphedema 11. H/o Afib RVR s/p cardioversion 01/10 12. DM plan admit TELE consult cardiology consult ID BLOOD CULTURE DVT PROPHYLAXIS RENAL CONSULT 76 MIN pt exam, chart review, > 50% of time spent with exam, chart review, pt care coordination Problems Medical Problems: (1) SHANDRA (acute kidney injury) Status: Acute (2) Diabetes Status: Acute (3) Lactic acidemia Status: Acute (4) Nonadherence to medication Status: Acute (5) Obesity Status: Acute Comment Review of Relevant I have reviewed the following items rachel (where applicable) has been applied. Labs Laboratory Tests Test 12/20/19 07:58 12/20/19 08:01 12/20/19 12:40 12/20/19 16:38 Glucose (Fingerstick) 176 mg/dL (70-99) 91 mg/dL (70-99) White Blood Count 10.1 x10^3/uL (4.0-11.0) Red Blood Count 4.98 x10^6/uL (4.30-5.70) Hemoglobin 11.8 g/dL (13.0-17.5) Hematocrit 36.5 % (39.0-53.0) Mean Corpuscular Volume 73 fL (79-100) Mean Corpuscular Hemoglobin 24 pg (25-35) Mean Corpuscular Hemoglobin Concent 32 g/dL (31-37) Red Cell Distribution Width 19.0 % (11.5-14.5) Platelet Count 269 x10^3/uL (140-400) Neutrophils (%) (Auto) 83 % (31-73) Lymphocytes (%) (Auto) 11 % (24-48) Monocytes (%) (Auto) 5 % (0-9) Eosinophils (%) (Auto) 0 % (0-3) Basophils (%) (Auto) 1 % (0-3) Neutrophils # (Auto) 8.4 x10^3/uL (1.8-7.7) Lymphocytes # (Auto) 1.1 x10^3/uL (1.0-4.8) Monocytes # (Auto) 0.5 x10^3/uL (0.0-1.1) Eosinophils # (Auto) 0.0 x10^3/uL (0.0-0.7) Basophils # (Auto) 0.1 x10^3/uL (0.0-0.2) Prothrombin Time 16.3 SEC (11.7-14.0) Prothromb Time International Ratio 1.4 (0.8-1.1) Sodium Level 137 mmol/L (136-145) Potassium Level 3.7 mmol/L (3.5-5.1) Chloride Level 101 mmol/L (98-107) Carbon Dioxide Level 29 mmol/L (21-32) Anion Gap 7 (6-14) Blood Urea Nitrogen 10 mg/dL (8-26) Creatinine 1.5 mg/dL (0.7-1.3) Estimated GFR (Cockcroft-Gault) 48.2 Glucose Level 161 mg/dL (70-99) Lactic Acid Level 2.1 mmol/L (0.4-2.0) 2.2 mmol/L (0.4-2.0) Calcium Level 8.7 mg/dL (8.5-10.1) Magnesium Level 1.8 mg/dL (1.8-2.4) Troponin I Quantitative 0.033 ng/mL (0.000-0.055) AL-Gne-T-Type Natriuretic Peptide 1661 pg/mL (0-124) Test 12/20/19 17:30 12/20/19 20:49 12/21/19 06:00 12/21/19 07:13 Urine Collection Type Unknown Urine Color Yellow Urine Clarity Clear Urine pH 5.0 (<5.0-8.0) Urine Specific [place] 1.015 (1.000-1.030) Urine Protein Negative mg/dL (NEG-TRACE) Urine Glucose (UA) Negative mg/dL (NEG) Urine Ketones (Stick) Negative mg/dL (NEG) Urine Blood Negative (NEG) Urine Nitrite Negative (NEG) Urine Bilirubin Negative (NEG) Urine Urobilinogen Dipstick 1.0 mg/dL (0.2 mg/dL) Urine Leukocyte Esterase Negative (NEG) Urine RBC 0 /HPF (0-2) Urine WBC 0 /HPF (0-4) Urine Squamous Epithelial Cells Few /LPF Urine Bacteria Few /HPF (0-FEW) Urine Mucus Slight /LPF Glucose (Fingerstick) 142 mg/dL (70-99) 154 mg/dL (70-99) White Blood Count 9.3 x10^3/uL (4.0-11.0) Red Blood Count 4.58 x10^6/uL (4.30-5.70) Hemoglobin 10.6 g/dL (13.0-17.5) Hematocrit 34.0 % (39.0-53.0) Mean Corpuscular Volume 74 fL (79-100) Mean Corpuscular Hemoglobin 23 pg (25-35) Mean Corpuscular Hemoglobin Concent 31 g/dL (31-37) Red Cell Distribution Width 19.5 % (11.5-14.5) Platelet Count 240 x10^3/uL (140-400) Neutrophils (%) (Auto) 81 % (31-73) Lymphocytes (%) (Auto) 12 % (24-48) Monocytes (%) (Auto) 5 % (0-9) Eosinophils (%) (Auto) 2 % (0-3) Basophils (%) (Auto) 1 % (0-3) Neutrophils # (Auto) 7.5 x10^3/uL (1.8-7.7) Lymphocytes # (Auto) 1.1 x10^3/uL (1.0-4.8) Monocytes # (Auto) 0.5 x10^3/uL (0.0-1.1) Eosinophils # (Auto) 0.1 x10^3/uL (0.0-0.7) Basophils # (Auto) 0.0 x10^3/uL (0.0-0.2) Sodium Level 138 mmol/L (136-145) Potassium Level 3.8 mmol/L (3.5-5.1) Chloride Level 102 mmol/L (98-107) Carbon Dioxide Level 29 mmol/L (21-32) Anion Gap 7 (6-14) Blood Urea Nitrogen 10 mg/dL (8-26) Creatinine 1.3 mg/dL (0.7-1.3) Estimated GFR (Cockcroft-Gault) 56.9 Glucose Level 127 mg/dL (70-99) Calcium Level 8.2 mg/dL (8.5-10.1) Laboratory Tests Test 12/20/19 12:40 12/20/19 16:38 12/20/19 17:30 12/20/19 20:49 Lactic Acid Level 2.2 mmol/L (0.4-2.0) Glucose (Fingerstick) 91 mg/dL (70-99) 142 mg/dL (70-99) Urine Collection Type Unknown Urine Color Yellow Urine Clarity Clear Urine pH 5.0 (<5.0-8.0) Urine Specific [place] 1.015 (1.000-1.030) Urine Protein Negative mg/dL (NEG-TRACE) Urine Glucose (UA) Negative mg/dL (NEG) Urine Ketones (Stick) Negative mg/dL (NEG) Urine Blood Negative (NEG) Urine Nitrite Negative (NEG) Urine Bilirubin Negative (NEG) Urine Urobilinogen Dipstick 1.0 mg/dL (0.2 mg/dL) Urine Leukocyte Esterase Negative (NEG) Urine RBC 0 /HPF (0-2) Urine WBC 0 /HPF (0-4) Urine Squamous Epithelial Cells Few /LPF Urine Bacteria Few /HPF (0-FEW) Urine Mucus Slight /LPF Test 12/21/19 06:00 12/21/19 07:13 White Blood Count 9.3 x10^3/uL (4.0-11.0) Red Blood Count 4.58 x10^6/uL (4.30-5.70) Hemoglobin 10.6 g/dL (13.0-17.5) Hematocrit 34.0 % (39.0-53.0) Mean Corpuscular Volume 74 fL (79-100) Mean Corpuscular Hemoglobin 23 pg (25-35) Mean Corpuscular Hemoglobin Concent 31 g/dL (31-37) Red Cell Distribution Width 19.5 % (11.5-14.5) Platelet Count 240 x10^3/uL (140-400) Neutrophils (%) (Auto) 81 % (31-73) Lymphocytes (%) (Auto) 12 % (24-48) Monocytes (%) (Auto) 5 % (0-9) Eosinophils (%) (Auto) 2 % (0-3) Basophils (%) (Auto) 1 % (0-3) Neutrophils # (Auto) 7.5 x10^3/uL (1.8-7.7) Lymphocytes # (Auto) 1.1 x10^3/uL (1.0-4.8) Monocytes # (Auto) 0.5 x10^3/uL (0.0-1.1) Eosinophils # (Auto) 0.1 x10^3/uL (0.0-0.7) Basophils # (Auto) 0.0 x10^3/uL (0.0-0.2) Sodium Level 138 mmol/L (136-145) Potassium Level 3.8 mmol/L (3.5-5.1) Chloride Level 102 mmol/L (98-107) Carbon Dioxide Level 29 mmol/L (21-32) Anion Gap 7 (6-14) Blood Urea Nitrogen 10 mg/dL (8-26) Creatinine 1.3 mg/dL (0.7-1.3) Estimated GFR (Cockcroft-Gault) 56.9 Glucose Level 127 mg/dL (70-99) Calcium Level 8.2 mg/dL (8.5-10.1) Glucose (Fingerstick) 154 mg/dL (70-99) Microbiology 12/20/19 Blood Culture - Preliminary, Resulted NO GROWTH AFTER 1 DAY Medications Current Medications Furosemide (Lasix) 40 mg 1X ONCE IVP ; Start 12/20/19 at 07:45; Stop 12/20/19 at 08:21; Status DC Metoprolol Tartrate (Lopressor) 25 mg 1X ONCE PO ; Start 12/20/19 at 07:45; Stop 12/20/19 at 08:21; Status DC Cephalexin HCl (Keflex) 1,000 mg 1X PO Last administered on 12/20/19at 08:43; Start 12/20/19 at 07:45 Sodium Chloride 1,000 ml @ 500 mls/hr 1X ONCE IV Last administered on 12/20/19at 08:30; Start 12/20/19 at 08:30; Stop 12/20/19 at 10:29; Status DC Sodium Chloride (Normal Saline Flush) 3 ml QSHIFT PRN IV AFTER MEDS AND BLOOD DRAWS; Start 12/20/19 at 12:00 Sodium Chloride 1,000 ml @ 100 mls/hr Q10H IV Last administered on 12/21/19at 00:20; Start 12/20/19 at 11:48 Ondansetron HCl (Zofran) 4 mg PRN Q4HRS PRN IV NAUSEA/VOMITING; Start 12/20/19 at 12:00 Acetaminophen (Tylenol) 650 mg PRN Q4HRS PRN PO TEMP OVER 100.4F OR MILD PAIN Last administered on 12/21/19at 00:25; Start 12/20/19 at 12:00 Al Hydroxide/Mg Hydroxide (Mylanta Plus Xs) 30 ml PRN DAILY PRN PO HEARTBURN / GAS; Start 12/20/19 at 12:00 Clonidine HCl (Catapres) 0.1 mg PRN Q6HRS PRN PO SBP>160 OR DBP>90; Start 12/20/19 at 12:00 Sodium Monofluorophosphate (Fleet Adult) 133 ml PRN DAILY PRN CA CONSTIPATION; Start 12/20/19 at 12:00 Docusate Sodium (Colace) 100 mg PRN BID PRN PO HARD STOOLS; Start 12/20/19 at 12:00 Albuterol Sulfate (Ventolin Neb Soln) 2.5 mg PRN Q4HRS PRN NEB SHORTNESS OF BREATH; Start 12/20/19 at 12:00 Guaifenesin (Robitussin) 200 mg PRN Q4HRS PRN PO COUGH; Start 12/20/19 at 12:00 Heparin Sodium (Porcine) (Heparin Sodium) 5,000 unit Q8HRS SQ Last administered on 12/21/19at 06:06; Start 12/20/19 at 14:00 Piperacillin Sod/ Tazobactam Sod 3.375 gm/Sodium Chloride 50 ml @ 100 mls/hr Q6HRS IV Last administered on 12/21/19at 05:57; Start 12/20/19 at 12:00 Insulin Human Lispro (HumaLOG) 0-5 UNITS TIDWMEALS SQ Last administered on 12/21/19at 09:33; Start 12/20/19 at 17:00 Dextrose (Dextrose 50%-Water Syringe) 12.5 gm PRN Q15MIN PRN IV SEE COMMENTS; Start 12/20/19 at 12:30 Acetaminophen/ Codeine Phosphate (Tylenol #3) 1 tab PRN Q6HRS PRN PO MODERATE TO SEVERE PAIN; Start 12/20/19 at 12:30 Albuterol Sulfate (Ventolin Neb Soln) 2.5 mg PRN Q4HRS PRN NEB SHORTNESS OF BREATH; Start 12/20/19 at 12:30; Status UNV Aspirin (Jailyn Aspirin) 325 mg DAILY PO Last administered on 12/21/19at 09:26; Start 12/20/19 at 13:00 Furosemide (Lasix) 40 mg DAILY PO Last administered on 12/21/19at 09:27; Start 12/20/19 at 13:00 Insulin Glargine (Lantus Syringe) 8 unit QHS SQ Last administered on 12/20/19at 21:44; Start 12/20/19 at 21:00 Metoprolol Tartrate (Lopressor) 25 mg BID PO ; Start 12/20/19 at 21:00; Stop 12/21/19 at 08:35; Status DC Potassium Chloride (Klor-Con) 20 meq DAILYWBKFT PO Last administered on 12/21/19at 09:26; Start 12/20/19 at 13:00 Metoprolol Tartrate (Lopressor) 12.5 mg BID PO ; Start 12/21/19 at 09:00 Active Scripts Active Proair Hfa (Albuterol Sulfate) 8.5 Gm Hfa.aer.ad 2.5 Mg NEB PRN Q4HRS PRN 30 Days Metformin Hcl 500 Mg Tablet 500 Mg PO BIDWMEALS 30 Days Acetaminophen-Cod #3 Tablet (Acetaminophen/Codeine Phosphate) 1 Each Tablet 1 Tab PO PRN Q6HRS PRN 6 Days Aspirin 325 Mg Tablet 1 Tab PO DAILY 90 Days Metoprolol Tartrate 25 Mg Tablet 25 Mg PO BID 90 Days Lantus (Insulin Glargine,Hum.rec.anlog) 100 Unit/1 Ml Vial 8 Unit SQ QHS 30 Days Klor-Con M20 (Potassium Chloride) 20 Meq Tab.er.prt 20 Meq PO DAILYWBKFT Furosemide 40 Mg Tablet 40 Mg PO DAILY Vitals/I & O Vital Sign - Last 24 Hours 12/20/19 12/20/19 12/20/19/5/20 11:00 11:30 12:40 13:00 Pulse 100 96 104 100 Resp 16 16 15 20 B/P (MAP) 138/83 (101) 127/89 (102) 126/87 (100) 153/84 (107) Pulse Ox 94 93 92 96 O2 Delivery Room Air Room Air Room Air Room Air 12/20/19 12/20/19 12/20/19 12/20/19 13:30 14:00 14:30 15:00 Pulse 98 98 94 98 Resp 20 18 18 18 B/P (MAP) 136/89 (105) 136/100 (112) 142/89 (106) 170/90 (116) Pulse Ox 96 96 96 96 O2 Delivery Room Air Room Air Room Air Room Air 12/20/19 12/20/19 12/20/19 12/20/19 15:30 16:30 16:58 19:00 Temp 98.4 98.4 Pulse 94 67 Resp 18 20 B/P (MAP) 127/52 (77) 103/66 (78) Pulse Ox 97 97 90 O2 Delivery Room Air Room Air Room Air Room Air 12/20/19 12/20/19 12/20/19 12/21/19 20:00 23:00 23:03 03:00 Temp 98.8 98.2 98.8 98.2 Pulse 75 75 61 Resp 20 20 B/P (MAP) 104/49 (67) 104/43 99/58 (72) Pulse Ox 92 93 O2 Delivery Room Air Room Air Room Air 12/21/19 12/21/19 07:00 09:00 Temp 98.0 98.0 Pulse 80 61 Resp 16 B/P (MAP) 122/59 (80) 99/58 Pulse Ox 98 O2 Delivery Room Air Intake and Output 12/20/19 12/20/19 12/21/19 15:00 23:00 07:00 Intake Total 100 ml 780 ml 440 ml Balance 100 ml 780 ml 440 ml Justicifation of Admission Dx: Justifications for Admission: Justification of Admission Dx: Yes Acute Renal Failure: RF Can't Be Managed Outpt Cellulitis: Cellulitis LISA COLEY MD Dec 21, 2019 10:44
[2019-12-21 11:00] VITALS: BP 111/62
[2019-12-21] MEDS: METOPROLOL TART IMMED RELEASE 25 MG TABLET. PO SCH ×2 (12:16→21:39)
--- NOTE | 2019-12-21 13:55 | PDOC ---
CARDIO Progress Notes Date and Time Date of Service 12/21/2019 Time of Evaluation 1110 Subjective Subjective: No Chest Pain, No shortness of breath, No Palpitations Vitals Vitals Vital Signs Date Time Temp Pulse Resp B/P (MAP) Pulse Ox O2 Delivery O2 Flow Rate FiO2 12/21/19 12:16 60 111/62 12/21/19 11:00 98.4 16 96 Room Air 98.4 Weight Weight [ ] Input and Output Intake and Output Intake and Output 12/21/19 07:00 Intake Total 1320 ml Balance 1320 ml Intake Oral 1220 ml IV Total 100 ml # Voids 2 Laboratory Labs Laboratory Tests Test 12/20/19 16:38 12/20/19 17:30 12/20/19 20:49 12/21/19 06:00 Glucose (Fingerstick) 91 mg/dL (70-99) 142 mg/dL (70-99) Urine Collection Type Unknown Urine Color Yellow Urine Clarity Clear Urine pH 5.0 (<5.0-8.0) Urine Specific [place] 1.015 (1.000-1.030) Urine Protein Negative mg/dL (NEG-TRACE) Urine Glucose (UA) Negative mg/dL (NEG) Urine Ketones (Stick) Negative mg/dL (NEG) Urine Blood Negative (NEG) Urine Nitrite Negative (NEG) Urine Bilirubin Negative (NEG) Urine Urobilinogen Dipstick 1.0 mg/dL (0.2 mg/dL) Urine Leukocyte Esterase Negative (NEG) Urine RBC 0 /HPF (0-2) Urine WBC 0 /HPF (0-4) Urine Squamous Epithelial Cells Few /LPF Urine Bacteria Few /HPF (0-FEW) Urine Mucus Slight /LPF White Blood Count 9.3 x10^3/uL (4.0-11.0) Red Blood Count 4.58 x10^6/uL (4.30-5.70) Hemoglobin 10.6 g/dL (13.0-17.5) Hematocrit 34.0 % (39.0-53.0) Mean Corpuscular Volume 74 fL (79-100) Mean Corpuscular Hemoglobin 23 pg (25-35) Mean Corpuscular Hemoglobin Concent 31 g/dL (31-37) Red Cell Distribution Width 19.5 % (11.5-14.5) Platelet Count 240 x10^3/uL (140-400) Neutrophils (%) (Auto) 81 % (31-73) Lymphocytes (%) (Auto) 12 % (24-48) Monocytes (%) (Auto) 5 % (0-9) Eosinophils (%) (Auto) 2 % (0-3) Basophils (%) (Auto) 1 % (0-3) Neutrophils # (Auto) 7.5 x10^3/uL (1.8-7.7) Lymphocytes # (Auto) 1.1 x10^3/uL (1.0-4.8) Monocytes # (Auto) 0.5 x10^3/uL (0.0-1.1) Eosinophils # (Auto) 0.1 x10^3/uL (0.0-0.7) Basophils # (Auto) 0.0 x10^3/uL (0.0-0.2) Sodium Level 138 mmol/L (136-145) Potassium Level 3.8 mmol/L (3.5-5.1) Chloride Level 102 mmol/L (98-107) Carbon Dioxide Level 29 mmol/L (21-32) Anion Gap 7 (6-14) Blood Urea Nitrogen 10 mg/dL (8-26) Creatinine 1.3 mg/dL (0.7-1.3) Estimated GFR (Cockcroft-Gault) 56.9 Glucose Level 127 mg/dL (70-99) Calcium Level 8.2 mg/dL (8.5-10.1) Test 12/21/19 07:13 12/21/19 11:51 Glucose (Fingerstick) 154 mg/dL (70-99) 104 mg/dL (70-99) Microbiology Micro Microbiology 12/20/19 Blood Culture - Preliminary, Resulted NO GROWTH AFTER 1 DAY Physical Exam HEENT: Neck Supple W Full Motion Chest: Symmetric LUNGS: Clear to Auscultation Heart: RRR (SR with PACs), irregularly irregular Abdomen: Soft N/T, Other (obese) Extremities: Other (LLE cellulitis) Neurology: alert, oriented, follow commands Assessment Assessment 1. Recurrent LLE celluitis: per PCP 2. Venous insufficiency 3. Known PAFIB: past TL/CVN, treated with limited eliquis in the past. Presently maintaining SR with PACs. 4. Hx of dilated Cardiomyopathy: presumed NICM 5. HTN: controlled 6. Homeless/Noncompliance: due to financial constraints, lives with friends. has not take full med list for several months 7. Morbid obesity 8. DM2: per PCP 9. Chronic diastolic/systolic CHF: compensated Recommendations 1. Continue metoprolol. regular dose ECSA for stroke prevention. Would not be able to afford NOAC. Lasix therapy. 2. Continue antibiotic treatment per ID 3. Supportive care, Discussed compliance. Statin per lipid level 4. SS consult. Nothing further encouraged to follow up Justicifation of Admission Dx: Justifications for Admission: Justification of Admission Dx: Yes Acute Renal Failure: RF Can't Be Managed Outpt Cellulitis: Cellulitis CHUY NEWSOME IMPORT AND EXPORT CLERK Dec 21, 2019 13:55
[2019-12-21 15:00] VITALS: BP 122/58
--- NOTE | 2019-12-21 15:19 | NUR ---
Wound Care Wound care consult for cellulitis to left leg. Pt stated dressing had just been changed and requested we return tomorrow. WC will assess on 12/21
--- NOTE | 2019-12-21 15:24 | CONS ---
DATE OF CONSULTATION: 12/21/2019 REQUESTING PHYSICIAN: Kenneth Mendoza MD REASON FOR CONSULTATION: Left leg cellulitis. HISTORY OF PRESENT ILLNESS: This is a 59-year-old gentleman who came in with left leg redness, swelling and pain. The patient denies any fever, denies any nausea, vomiting, diarrhea. Denies any chest pain, shortness of breath, or abdominal pain. The patient is currently homeless, living with friends. PAST MEDICAL HISTORY: Positive for obesity, hypertension, congestive heart failure, atrial fibrillation, venous insufficiency, peptic ulcer disease, anxiety disorder, diabetes. SOCIAL HISTORY: Negative for smoking, alcohol or illicit drug use. ALLERGIES: LISTED ALLERGIC TO DOXYCYCLINE AND CIPROFLOXACIN. REVIEW OF SYSTEMS: As per HPI, all other systems reviewed and are negative. CURRENT MEDICATIONS: The patient is on Zosyn. PHYSICAL EXAMINATION: GENERAL: Alert, oriented gentleman, not in distress. VITAL SIGNS: Stable, afebrile. HEENT: NAD. NECK: Supple, no JVP, no lymphadenopathy. LUNGS: Clear. HEART: S1, S2 regular. ABDOMEN: Benign. EXTREMITIES: Left lower extremity is significantly swollen. SKIN: Has a dry flaky skin with redness and some weeping present. Rest of skin examination unremarkable. NEUROLOGIC: The patient is alert, awake and appropriate. No focal neurologic deficit. LABORATORY DATA: White count is normal. BUN and creatinine is normal. Lactic acid was 2.2. Urinalysis unremarkable. Blood culture is negative. Ultrasound of the extremity was negative for deep venous thrombosis. IMPRESSION: 1. Left lower extremity cellulitis. 2. Left lower extremity venous insufficiency. 3. Obesity. 4. Diabetes. 5. Hypertension. 6. Atrial fibrillation. RECOMMENDATIONS: Continue Zosyn. Leg elevation, although, his body habitus is such that he is not able to do leg elevation above heart. Supportive care and we will continue to follow. Thank you very much, Dr. Mendoza, for giving me the opportunity to participate in this patient's care. POPPY BORJA MD DR: LEWIS/nicole JOB#: [id number] / [id number]
[2019-12-21 15:33] LABS: CHOLESTEROL/HDL RATIO 3.6
[2019-12-21 18:26] VITALS: BP 135/96
[2019-12-21] MEDS ORDERED: ZOLPIDEM 5 MG TABLET. PO PRN (21:00)
[2019-12-21] MEDS: LACTOBACILLUS RHAMNOSUS GG 1 CAPSULE. PO SCH (21:38)
[2019-12-21] MEDS: INSULIN GLARGINE SYRINGE. SQ SCH (21:45)
[2019-12-21 23:19] VITALS: BP 118/76
[2019-12-22] MEDS: PIPERACILLIN/TAZOBACTAM 3.375 GM in IV NORMAL SALINE 50ML 50 ML IV SCH ×3 (00:17→12:36)
[2019-12-22] MEDS: IV NORMAL SALINE 1000ML BAG 1,000 ML IV SCH (00:20)
[2019-12-22 03:04] VITALS: BP 127/58
[2019-12-22 05:20] LABS: CALCIUM 8.4 mg/dL (8.5-10.1); CREATININE 1.3 mg/dL (0.7-1.3); GFR 56.9; POTASSIUM 3.8 mmol/L (3.5-5.1)
[2019-12-22] MEDS: HEPARIN for SUB-Q USE 5,000 UNIT/ML VIAL. SQ SCH ×2 (06:37→15:05)
[2019-12-22 07:00] VITALS: BP 99/63
[2019-12-22] MEDS: INSULIN LISPRO 300 UNITS/3 ML VIAL. SQ SCH ×2 (08:00→12:00)
[2019-12-22] MEDS: POTASSIUM CHLORIDE 20 MEQ TABLET.ER. PO SCH (09:15)
[2019-12-22] MEDS: LACTOBACILLUS RHAMNOSUS GG 1 CAPSULE. PO SCH (09:15)
[2019-12-22] MEDS: FUROSEMIDE 40 MG TABLET. PO SCH (09:16)
[2019-12-22] MEDS: METOPROLOL TART IMMED RELEASE 25 MG TABLET. PO SCH (09:16)
[2019-12-22] MEDS: ASPIRIN 325 MG TABLET PO SCH (09:16)
--- NOTE | 2019-12-22 10:10 | NUR ---
SS following up with discharge planning. SS reviewed pt chart and discussed with pt RN. Pt is self pay. Pt is currently on room air. Pt on IV Zosyn. SS spoke with Dr. Mitchell and was notified that pt can switch to PO abx at discharge. Possible discharge to home today. SS will continue to follow for discharge planning.
--- NOTE | 2019-12-22 10:49 | PDOC ---
Infectious Disease Note Subjective Subjective Patient is feeling better. Still has a little pain in the left leg ROS ROS No nausea vomiting diarrhea chest pain shortness of breath or fever Vital Sign Vital Signs Vital Signs Date Time Temp Pulse Resp B/P (MAP) Pulse Ox O2 Delivery O2 Flow Rate FiO2 12/22/19 09:16 90 99/63 12/22/19 08:00 Room Air 12/22/19 07:00 98.3 18 97 98.3 Physical Exam PHYSICAL EXAM GENERAL: Alert, oriented gentleman, not in distress. VITAL SIGNS: Stable, afebrile. HEENT: NAD. NECK: Supple, no JVP, no lymphadenopathy. LUNGS: Clear. HEART: S1, S2 regular. ABDOMEN: Benign. EXTREMITIES: Left lower extremity is significantly swollen. SKIN: Has a dry flaky skin with redness and some weeping present. Rest of skin examination unremarkable. NEUROLOGIC: The patient is alert, awake and appropriate. No focal neurologic deficit. Labs Lab Laboratory Tests Test 12/21/19 11:51 12/21/19 17:05 12/21/19 20:41 12/22/19 04:30 Glucose (Fingerstick) 104 mg/dL (70-99) 126 mg/dL (70-99) 149 mg/dL (70-99) Sodium Level 138 mmol/L (136-145) Potassium Level 3.8 mmol/L (3.5-5.1) Chloride Level 103 mmol/L (98-107) Carbon Dioxide Level 27 mmol/L (21-32) Anion Gap 8 (6-14) Blood Urea Nitrogen 9 mg/dL (8-26) Creatinine 1.3 mg/dL (0.7-1.3) Estimated GFR (Cockcroft-Gault) 56.9 Glucose Level 133 mg/dL (70-99) Calcium Level 8.4 mg/dL (8.5-10.1) Test 12/22/19 07:41 Glucose (Fingerstick) 119 mg/dL (70-99) Micro Microbiology 12/20/19 Blood Culture - Preliminary, Resulted NO GROWTH AFTER 1 DAY Objective Assessment IMPRESSION: 1. Left lower extremity cellulitis. 2. Left lower extremity venous insufficiency. 3. Obesity. 4. Diabetes. 5. Hypertension. 6. Atrial fibrillation. Plan Plan of Care Needs leg elevation Weight loss P.o. Augmentin Discussed with Dr. POPPY Healy MD Dec 22, 2019 10:49
[2019-12-22 11:00] VITALS: BP 103/58
--- NOTE | 2019-12-22 11:08 | PDOC ---
[employer] PROGRESS NOTE Date of Service DOS: DATE: 12/22/19 TIME: 11:02 Chief Complaint Chief Complaint Left lower extremity cellulitis AFib Hypertension Chronic diastolic CHF Chronic Kidney Disease Morbid obesity Tinea Lymphedema Diabetes Mellitus Type II History of Present Illness History of Present Illness 12/22/2019 Patient seen and examined Patient in NAD, hoping to discharge today Discussed with RN Discussed with Infectious Disease Chart reviewed Vitals/I&O Vitals/I&O: Vital Signs Date Time Temp Pulse Resp B/P (MAP) Pulse Ox O2 Delivery O2 Flow Rate FiO2 12/22/19 09:16 90 99/63 12/22/19 08:00 Room Air 12/22/19 07:00 98.3 18 97 98.3 I & O 12/21/19 12/21/19 12/22/19 15:00 23:00 07:00 Intake Total 1200 ml 600 ml 1200 ml Balance 1200 ml 600 ml 1200 ml Physical Exam Physical Exam: GENERAL: Alert, oriented gentleman, not in distress. VITAL SIGNS: Stable, afebrile. HEENT: NAD. NECK: Supple, no JVP, no lymphadenopathy. LUNGS: Clear. HEART: S1, S2 regular. ABDOMEN: Benign. EXTREMITIES: Left lower extremity is significantly swollen. SKIN: Has a dry flaky skin with redness and some weeping present. Rest of skin examination unremarkable. NEUROLOGIC: The patient is alert, awake and appropriate. No focal neurologic deficit. General: Alert, Oriented X3, Cooperative, No acute distress Heart: Normal S1, Normal S2, Other (SR with PACs; distant heart sounds) Lungs: Clear, Other Abdomen: Soft, No tenderness, Other (obesity) Extremities: No clubbing, No cyanosis, Other (2+ bilateral LE pitting edema) Skin: No rashes, Other (LLE stasis dermatitis with erythema) Labs Labs: Laboratory Tests Test 12/21/19 11:51 12/21/19 17:05 12/21/19 20:41 12/22/19 04:30 Glucose (Fingerstick) 104 mg/dL (70-99) 126 mg/dL (70-99) 149 mg/dL (70-99) Sodium Level 138 mmol/L (136-145) Potassium Level 3.8 mmol/L (3.5-5.1) Chloride Level 103 mmol/L (98-107) Carbon Dioxide Level 27 mmol/L (21-32) Anion Gap 8 (6-14) Blood Urea Nitrogen 9 mg/dL (8-26) Creatinine 1.3 mg/dL (0.7-1.3) Estimated GFR (Cockcroft-Gault) 56.9 Glucose Level 133 mg/dL (70-99) Calcium Level 8.4 mg/dL (8.5-10.1) Test 12/22/19 07:41 Glucose (Fingerstick) 119 mg/dL (70-99) Assessment and Plan Assessmemt and Plan Problems Medical Problems: (1) SHANDRA (acute kidney injury) Status: Acute (2) Diabetes Status: Acute (3) Lactic acidemia Status: Acute (4) Nonadherence to medication Status: Acute (5) Obesity Status: Acute ASSESSMENT Left lower extremity cellulitis AFib Hypertension Chronic diastolic CHF Chronic Kidney Disease Morbid obesity Tinea Lymphedema Diabetes Mellitus Type II PLAN Probable discharge today Change to Augmentin PO Home meds DVT prophylaxis Telemetry monitoring Full code Appreciate subspecialty input Comment Review of Relevant I have reviewed the following items rachel (where applicable) has been applied. Medications: Current Medications Medications (Trade) Dose Ordered Sig/Masood Route PRN Reason Start Time Stop Time Status Last Admin Dose Admin Lactobacillus Rhamnosus (Culturelle) 1 cap BID PO 12/21/19 21:00 12/22/19 09:15 Zolpidem Tartrate (Ambien) 5 mg PRN QHS PRN PO INSOMNIA 12/21/19 21:00 12/21/19 21:38 Justicifation of Admission Dx: Justifications for Admission: Justification of Admission Dx: Yes Acute Renal Failure: RF Can't Be Managed Outpt Cellulitis: Cellulitis AMANDEEP MERCADO III DO Dec 22, 2019 11:08
--- NOTE | 2019-12-22 11:53 | DS ---
DATE OF DISCHARGE: 12/22/2019 ADMISSION DIAGNOSIS: Bilateral lower extremity cellulitis. DISCHARGE DIAGNOSES: Resolving cellulitis, atrial fibrillation, hypertension, overweight, chronic kidney disease, congestive heart failure, tenia, lymphedema, diabetes. CONSULTS: Infectious Disease, Nephrology, and Cardiology. PROCEDURES: None. HOSPITAL COURSE: The patient is a pleasant middle-aged male who basically presented with cellulitis of the lower extremities. He was admitted. We gave him IV antibiotics and physical therapy, occupational therapy, did some wound care. The above consults were obtained. Today, the patient was seen and examined, he seems to be at his baseline. If okay with consultants, we plan to discharge with close outpatient followup. DISPOSITION: Home. ACTIVITY: As tolerated. DIET: Low sodium. MEDICATIONS: Please see the MRAD. TOTAL TIME: 32 minutes. AMANDEEP MERCADO DO DR: ELEUTERIO/nicole JOB#: [id number] / [id number]
--- NOTE | 2019-12-22 14:14 | PDOC ---
DATE OF SERVICE DATE: 12/22/19 TIME: 14:12 SUBJECTIVE ROS stable OBJECTIVE Vital Signs Vital Signs Date Time Temp Pulse Resp B/P (MAP) Pulse Ox O2 Delivery O2 Flow Rate FiO2 12/22/19 11:00 97.8 85 20 103/58 (73) 95 Room Air 97.8 I & 0 Intake and Output 12/22/19 07:00 Intake Total 3000 ml Balance 3000 ml Intake Oral 1950 ml IV Total 1050 ml # Voids 7 PHYSICAL EXAM Physical Exam General: No acute distress, Morbidly Obese HEENT: Mucous membr. moist/pink Neck Supple, Thick Lungs: Clear to auscultation, Non labored Heart: distant heart sounds Abdomen: Soft, Obese Extremities: 1-2+ bilateral LE edema, changes ov Venous stasis Lt >Rt Skin: stasis dermatitis with erythema Lt Neuro: Grossly normal Psych/Mental Status: Mental status NL, Mood NL No Vega, No CVA or SP tenderness DIAGNOSIS/ASSESSMENT Assessment & Plan SHANDRA - suspect Pre-renal, stable E-Lytes stable, UA unremarkable, No Overt proteinuria or Micr hematuria, Currently on Lasix Supportive care, Avoid Nephrotoxins, I/O, CKD 2/3- Baseline Cr 1.1-1.3 Presumably sec to HTN , DM, Cardiorenal Recurrent LLE celluitis: ID following Venous insufficiency Hx of PAFIB: past TL Hx of dilated Cardiomyopathy: presumed NICM HTN: controlled, BP lower , Monitor Homeless/Noncompliance: due to financial constraints, lives with friends. has not take full med list for several months Morbid obesity DM2: per PCP Chronic diastolic/systolic CHF: compensated COMMENT/RELEVANT DATA Meds Current Medications Medications (Trade) Dose Ordered Sig/Masood Start Time Stop Time Status Last Admin Dose Admin Acetaminophen (Tylenol) 650 mg PRN Q4HRS PRN 12/20/19 12:00 12/21/19 00:25 650 MG Acetaminophen/ Codeine Phosphate (Tylenol #3) 1 tab PRN Q6HRS PRN 12/20/19 12:30 Al Hydroxide/Mg Hydroxide (Mylanta Plus Xs) 30 ml PRN DAILY PRN 12/20/19 12:00 Albuterol Sulfate (Ventolin Neb Soln) 2.5 mg PRN Q4HRS PRN 12/20/19 12:30 UNV Aspirin (Jailyn Aspirin) 325 mg DAILY 12/20/19 13:00 12/22/19 09:16 325 MG Cephalexin HCl (Keflex) 1,000 mg 1X 12/20/19 07:45 12/21/19 15:14 DC 12/20/19 08:43 1,000 MG Clonidine HCl (Catapres) 0.1 mg PRN Q6HRS PRN 12/20/19 12:00 Dextrose (Dextrose 50%-Water Syringe) 12.5 gm PRN Q15MIN PRN 12/20/19 12:30 Docusate Sodium (Colace) 100 mg PRN BID PRN 12/20/19 12:00 Furosemide (Lasix) 40 mg DAILY 12/20/19 13:00 12/22/19 09:16 40 MG Guaifenesin (Robitussin) 200 mg PRN Q4HRS PRN 12/20/19 12:00 Heparin Sodium (Porcine) (Heparin Sodium) 5,000 unit Q8HRS 12/20/19 14:00 12/22/19 06:37 5,000 UNIT Insulin Glargine (Lantus Syringe) 8 unit QHS 12/20/19 21:00 12/21/19 21:45 8 UNIT Insulin Human Lispro (HumaLOG) 0-5 UNITS TIDWMEALS 12/20/19 17:00 12/21/19 09:33 2 UNITS Lactobacillus Rhamnosus (Culturelle) 1 cap BID 12/21/19 21:00 12/22/19 09:15 1 CAP Metoprolol Tartrate (Lopressor) 12.5 mg BID 12/21/19 11:00 12/22/19 09:16 12.5 MG Ondansetron HCl (Zofran) 4 mg PRN Q4HRS PRN 12/20/19 12:00 Piperacillin Sod/ Tazobactam Sod 3.375 gm/Sodium Chloride 50 ml @ 100 mls/hr Q6HRS 12/20/19 12:00 12/22/19 12:36 100 MLS/HR Potassium Chloride (Klor-Con) 20 meq [id number] 12/20/19 13:00 12/22/19 09:15 20 MEQ Sodium Monofluorophosphate (Fleet Adult) 133 ml PRN DAILY PRN 12/20/19 12:00 Sodium Chloride 1,000 ml @ 100 mls/hr Q10H 12/20/19 11:48 12/22/19 00:20 100 MLS/HR Sodium Chloride (Normal Saline Flush) 3 ml QSHIFT PRN 12/20/19 12:00 Zolpidem Tartrate (Ambien) 5 mg PRN QHS PRN 12/21/19 21:00 12/21/19 21:38 5 MG Lab Laboratory Tests Test 12/21/19 17:05 12/21/19 20:41 12/22/19 04:30 12/22/19 07:41 Glucose (Fingerstick) 126 mg/dL (70-99) 149 mg/dL (70-99) 119 mg/dL (70-99) Sodium Level 138 mmol/L (136-145) Potassium Level 3.8 mmol/L (3.5-5.1) Chloride Level 103 mmol/L (98-107) Carbon Dioxide Level 27 mmol/L (21-32) Anion Gap 8 (6-14) Blood Urea Nitrogen 9 mg/dL (8-26) Creatinine 1.3 mg/dL (0.7-1.3) Estimated GFR (Cockcroft-Gault) 56.9 Glucose Level 133 mg/dL (70-99) Calcium Level 8.4 mg/dL (8.5-10.1) Test 12/22/19 12:29 Glucose (Fingerstick) 113 mg/dL (70-99) Results All relevant outside records, renal labs, imaging studies, telemetry/EKG's were reviewed. Justicifation of Admission Dx: Justifications for Admission: Justification of Admission Dx: Yes Acute Renal Failure: RF Can't Be Managed Outpt Cellulitis: Cellulitis KARL GUERRA MD Dec 22, 2019 14:14
--- NOTE | 2019-12-22 14:17 | CARD ---
MR#: [id number] Date of Study: 12/22/2019 Ordering Physician: JOSE SUMNER, Referring Physician: JOSE SUMNER, Tech: Ana Pope APPROVED REPORT EXAM: Two-dimensional and M-mode echocardiogram with Doppler and color Doppler. Other Information Quality : FairHR: 89bpm Technically limited study due to body habitus. INDICATION Congestive Heart Failure 2D DIMENSIONS RVDd4.0 (2.9-3.5cm)Left Atrium(2D)4.4 (1.6-4.0cm) IVSd1.2 (0.7-1.1cm)Aortic Root(2D)3.5 (2.0-3.7cm) LVDd6.3 (3.9-5.9cm)LVOT Diameter2.1 (1.8-2.4cm) PWd1.5 (0.7-1.1cm)LVDs4.7 (2.5-4.0cm) FS (%) 25.3 %SV99.3 ml LVEF(%)48.9 (>50%) Aortic Valve AoV Peak Anselmo.110.8cm/sAoV VTI21.3cm AO Peak GR.4.9mmHgLVOT Peak Anselmo.98.3cm/s LVOT VTI 15.25cmAO Mean GR.3mmHg LEVI (VMAX)2.08nb8RXS (VTI)2.49cm2 Mitral Valve MV E Nzcizttd51.5cm/sMV DECEL [id number] MV A Igttcddl39.5cm/sMV E Mean Gr.2mmHg MV [id number]/A Ratio1.4 MVA (PHT)3.78cm2 TDI E/Lateral E'10.3E/Medial E'12.2 Pulmonary Valve PV Peak Jkssbwmt12.7cm/sPV Peak Grad.3mmHg Tricuspid Valve TR P. Anroqirn391wd/sRAP [id number] TR Peak Gr.[id number] LEFT VENTRICLE The left ventricle is normal size. There is mild to moderate concentric left ventricular hypertrophy. The left ventricular systolic function is low normal. The Ejection Fraction is 50%. Septal motion co nsistent with conduction abnormality. RIGHT VENTRICLE The right ventricle is borderline dilated. There is normal right ventricular wall thickness. The righ t ventricular systolic function is normal. ATRIA The left atrium is mildly dilated. The right atrium is borderline dilated. The interatrial septum is intact with no evidence for an atrial septal defect or patent foramen ovale as noted on 2-D or Dopple r imaging. AORTIC VALVE The aortic valve is normal in structure and function. Doppler and Color Flow revealed no significant aortic regurgitation. There is no significant aortic valvular stenosis. Calculated aortic valve area is 2.9 cm2 with maximum pressure gradient of 7 mmHg and mean pressure gradient of 4 mmHg. MITRAL VALVE The mitral valve is normal in structure and function. There is no evidence of mitral valve prolapse. There is no mitral valve stenosis. The mean gradient is 2.3 mmHg. Doppler and Color-flow revealed tra ce mitral regurgitation. TRICUSPID VALVE The tricuspid valve is normal in structure and function. Doppler and Color Flow revealed trace tricus pid regurgitation with an estimated PAP of 38 mmHg. There is no tricuspid valve stenosis. PULMONIC VALVE The pulmonic valve is not well visualized. Doppler and Color Flow revealed no pulmonic valvular regur gitation. GREAT VESSELS The aortic root is normal in size. The IVC is dilated. PERICARDIAL EFFUSION There is no evidence of significant pericardial effusion. Critical Notification Critical Value: No <Conclusion> Technically difficult study. The left ventricular systolic function is low normal. The Ejection Fraction is 50%. Trace mitral regurgitation. Trace tricuspid regurgitation with an estimated PAP of 38 mmHg. There is no evidence of significant pericardial effusion. Signed by : Kemal Almanzar, Electronically Approved : 12/22/2019 14:16:26
--- NOTE | 2019-12-22 14:53 | NUR ---
Wound Care Wound care consult for left leg cellulitis. Pt is currently discharging. Refused wound care assessment.
--- NOTE | 2019-12-22 15:30 | NUR ---
DISCHARGE INSTRUCTIONS GIVEN, QUESTIONS AND CONCERNS ANSWERED, DRY DRESSING APPLIED TO PATIENTS' LEFT LOWER EXTREMITY. ALL PERSONAL BELONGINGS GATHERED BY THE PATIENT AND PLACED IN BAGS FOR DISCHARGE. SALINE LOCK REMOVED FROM PATIENTS' LEFT AC AREA PER THIS TWIST TESTER.
--- NOTE | 2019-12-22 15:53 | NUR ---
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
== END 2019-12-22 15:53 | disposition home or self-care (01) | DRG 603 ==
LOC: ER 07:17 → 6 SOUTH 11:06 → 5 NORTH 13:03
PROVIDERS: ADMIT Family Medicine; ATTEND Family Medicine
DX: L03.116 Cellulitis of left lower limb (principal); N17.9 Acute kidney failure, unspecified; E87.2 Acidosis; I13.0 Hypertensive heart and chronic kidney disease with heart failure and stage 1 through stage 4 chronic kidney disease, or unspecified chronic kidney disease; I42.0 Dilated cardiomyopathy; I50.42 Chronic combined systolic (congestive) and diastolic (congestive) heart failure; Z68.43 Body mass index [BMI] 50.0-59.9, adult; L03.115 Cellulitis of right lower limb; B35.9 Dermatophytosis, unspecified; E11.22 Type 2 diabetes mellitus with diabetic chronic kidney disease; E66.01 Morbid (severe) obesity due to excess calories; I34.0 Nonrheumatic mitral (valve) insufficiency; I48.0 Paroxysmal atrial fibrillation; I87.2 Venous insufficiency (chronic) (peripheral); I87.8 Other specified disorders of veins; I89.0 Lymphedema, not elsewhere classified; N18.9 Chronic kidney disease, unspecified; Z59.0 Homelessness; Z82.49 Family history of ischemic heart disease and other diseases of the circulatory system; Z87.11 Personal history of peptic ulcer disease; Z91.14 Patient's other noncompliance with medication regimen; Z91.19 Patient's noncompliance with other medical treatment and regimen; F32.9 Major depressive disorder, single episode, unspecified; F41.9 Anxiety disorder, unspecified; Z88.8 Allergy status to other drugs, medicaments and biological substances; Z79.899 Other long term (current) drug therapy
CPT/HCPCS: 36415; 71045; 80048; 80061; 81001; 82962; 83605; 83735; 83880; 84484; 85025; 85610; 87040; 93005; 93306; 93971; 96360; 99285; J1644; J1815; J2543; J7030; G0378